=== PATIENT | male | born 1950 | race Caucasian/White ===

== ENCOUNTER 2023-08-02 14:43 | Inpatient (IN) | payer OTHER, SELFPAY ==
[2023-08-02 10:05] VITALS: BP 181/91
[2023-08-02 10:29] LABS: % Basophils 0.2 % (0-2); % Eosinophils 0.1 % (0-6); % Immature Granulocytes 0.6 % (0-0.5); % Lymphocytes 4.7 % (20.5-51.1); % Monocytes 6.2 % (1.7-9.3); % Neutrophils 88.2 % (42.2-75.2); Absolute Immature Granulocytes 0.1 10^3/uL (0-0.05); Absolute Lymphocytes 0.8 10^3/uL (1.2-3.4); Absolute Neutrophils 14.3 10^3/uL (1.4-6.5); Hematocrit 35.7 % (39.0-52.0); Hemoglobin 11.5 g/dL (13.0-18.0); Mean Corp Hgb Conc. 32.2 g/dL (33.0-37.0); Mean Corpuscular Hgb 28.7 pg (27.0-31.0); Mean Platelet Volume 8.9 fL (7.4-10.4); Nucleated Red Blood Cells % 0 % (-); Platelet Count 343 10^3/uL (130-400); Red Blood Cell Count 4.01 10^6/uL (4.70-6.10); Red Cell Dist. Width 13.6 % (11.5-14.5); White Blood Cell Count 16.3 10^3/uL (4.8-10.8)
--- NOTE | 2023-08-02 10:38 | ED.GENMED ---
History of Present Illness
General
Chief Complaint: Fall
Source: patient and ambulance crew
Time Seen by Provider: 08/02/23 10:25
Travel History
Have you had any contact with someone who has COVID-19?: No
Do you have any symptoms of coronavirus? Fever > 100 degrees, chills, cough, shortness of breath, sore throat, loss of taste or smell, muscle aches, or headache?: No
History of Present Illness
History of Present Illness:
73-year-old male presents to the emergency room for evaluation after being found by police on his floor. Patient evidently fell approximately 48 hours ago. He attempted to sit down on a chair when it slid out from under him. He has significant
pain and ecchymosis in the left shoulder. Patient also has pain lateral left hand and fifth digit. Patient was unable to get himself up off of the floor. Patient was urinating in bottles. He states that because he was becoming extremely thirsty
he resorted to drinking his urine to 'prevent dehydration'.
Past History
Past History
ED Past Medical History: CAD, HTN, Hypercholesterolemia, NIDDM, Psychiatric, Other, Other and Other
ED Past Surgical History: Cardiac (stents) and Orthopedic (LTKR 2016)
Social History
Tobacco: Non-smoker
Alcohol: None
Drug: None
Personal:
Living: with family
Employment: Retired
Family History
Family History: Other (Father with a stroke mother with a stroke)
Phy Exam
Physical Exam
Physical Exam:
General: Awake, Alert, Oriented X3. Somewhat bizarre affect.
Vitals: Tachycardic
Head: Atraumatic
Eyes: Pupils equal, EOMI
Throat: Airway intact, no exudates, markedly dry mucosa
Neck: Trachea midline
Lungs: Clear and equal b/l
Heart: Regular rate, no murmurs
Abd: Soft, Nontender, No pulsatile mass
Neuro: Grossly nonfocal
Skin: Warm, dry, no rash.
Extremities: Significant swelling and ecchymosis left shoulder. Pain with minimal movement of the left humerus. Swelling and pain noted left fifth digit and lateral hand.
Course
Orders/Labs/Results
Orders:
Orders
08/02/23 10:06
CR Humerus - Left Min 2 Views* Urgent
Comment:
Reason For Exam: fall 2 days ago
08/02/23 10:08
Urinalysis Reflex To Culture Urgent
Date Specimen was Collected: 08/02/23
Time Specimen was Collected: 10:08
08/02/23 10:10
Complete Blood Count/With Diff Urgent
Comprehensive Metabolic Panel Urgent
Creatine Phosphokinase Urgent
08/02/23 10:37
0.9% Sodium Chloride 500 ml [Nss] 500 ml IV BOLUS
HYDROmorphone [Dilaudid] 0.5 mg IV NOW STA
08/02/23 10:40
CR Chest - 2 Views Urgent
Comment:
Reason For Exam: pain after a fall
Hand, Left 3 View [CR Hand - Left Min 3 Views] Urgent
Comment:
Reason For Exam: pain after a fall
08/02/23 11:43
Splints/Slings/Crut- Treatment ONCE
Sling to: Left Arm
Location: Left
Type of Splint: Aluminum Finger Splint
08/02/23 13:56
EKG [Electrocardiogram (*1)] Urgent
Reason for Study: PreOp
08/02/23 13:58
ORTHOPEDIC CONSULT Routine
Consulting Provider: Dieudonne Baron
Was physician already notified: Yes
Reason for consult: left humerus/ left 5th phlanx fracture
08/02/23 13:59
Admit/Transfer Patient As Directed
Co-Sign Provider:
Level of Care: Inpatient admission
Assign to:: Telemetry
Physician / Group: leif vogel
Diagnosis: mechan fall L humerus/L5th finger fx, Rhabdo,hyperNa
Reason for Telemetry: Arrhythmia
Date to Stop Telemetry: 08/05/23
Time to Stop Telemetry: 11:00
Reason for Hospitalization: mechan fall L humerus/L5th finger fx, Rhabdo,hyperNa
Expected length of stay greater than two midnights?: Yes
ELOS- Estimated Length of Stay in days: 4
I certify the patient meets the requirements for IP care: Yes
Code Status As Directed
Resuscitation Status: Full Code
08/05/23 11:00
DC Protocol for Telemetry ONCE
Abnormal Lab Results
08/02/23
10:10
WBC 16.3 H 10^3/uL
(4.8-10.8)
RBC 4.01 L 10^6/uL
(4.70-6.10)
Hgb 11.5 L g/dL
(13.0-18.0)
Hct 35.7 L %
(39.0-52.0)
MCHC 32.2 L g/dL
(33.0-37.0)
Abs Immat Gran (auto) 0.1 H 10^3/uL
(0-0.05)
Absolute Neuts (auto) 14.3 H 10^3/uL
(1.4-6.5)
Absolute Lymphs (auto) 0.8 L 10^3/uL
(1.2-3.4)
Absolute Monos (auto) 1.0 H 10^3/uL
(0.1-0.6)
Immature Gran % 0.6 H %
(0-0.5)
Neutrophils % 88.2 H %
(42.2-75.2)
Lymphocytes % 4.7 L %
(20.5-51.1)
Sodium 146 H mmol/L
(135-145)
Chloride 114 H mmol/L
(98-107)
Carbon Dioxide 20 L mmol/L
(22-30)
BUN 52 H mg/dl
(9-20)
Creatinine 2.2 H mg/dL
(0.7-1.3)
Glucose 145 H mg/dl
(70-99)
AST 92 H U/L
(17-59)
Creatine Kinase 1364 H U/L
(55-170)
08/02/23 10:10
08/02/23 10:10
Vital Signs
Initial and Last Documented VS:
Initial Vital Signs
Temp Pulse Resp Pulse Ox
98.0 F 108 18 99
08/02/23 10:01 08/02/23 10:01 08/02/23 10:01 08/02/23 10:01
Last Documented Vital Signs
Temp Pulse Resp BP Pulse Ox
97.8 F 106 19 131/94 100
08/02/23 14:12 08/02/23 14:00 08/02/23 14:00 08/02/23 14:00 08/02/23 10:45
MDM/Problems Addressed
Differential Diagnosis Includes:
Humerus fracture, shoulder dislocation, clavicle fracture, dehydration, acute renal failure, rhabdomyolysis
MDM/Problems Addressed:
Patient presents after being on the ground for her a couple days unable to get up. Physical exam shows significant dehydration. Labs show abnormal renal function but appears close to his baseline. His CPKs elevated at around 1500. X-rays show
fracture of his humerus. Patient did not strike his head and did not have loss of consciousness. There is no evidence of head trauma. Patient will require hospitalization both for IV hydration and monitoring renal function but also for orthopedic
evaluation and likely surgical management of his left humerus fracture. The left fifth proximal phalanx fracture can be splinted. Left arm placed in a sling for support. I communicated with Dr. Haynes who is on-call for orthopedics.
*Radiology
Radiology exam reviewed: preliminary read by ED provider (Pressure viewed the patient's plain films. Fracture noted left humerus, left fifth proximal phalanx. Chest x-ray I do not see any acute disease.) and radiology read reviewed
*Pulse Oximetry
Patient hypoxic: no
*EKG
Interpreted by ED Provider?: Yes
Interpretation: abnormal
Heart Rate: 106
[place]: left axis deviation
QRS Pattern: right bundle branch block
Ischemia: non-specific ST changes
*Tile Ditcher Interpretation
Rate: tachycardiac
Interpretation: abnormal
Heart Rate: 106
Rhythm: sinus
*Critical Care Note
Total Time (30-74mins, 75-104mins- exclusive of procedures): Not Applicable
ED Attending Note
-
Portions of this chart may have been created with voice recognition software.� Occasional wrong word or��sound alike� substitutions may have occurred due to the inherent limitations of voice recognition software.
Discharge Plan
Departure
Patient Disposition: Admit
Date of Disposition: 08/02/23
Time of Disposition: 11:34
Admit to: Med/Surg
Presentation/result/management discussed w/ accepting MD/DO: Hospitalist
Condition: Fair
Discharge Problem:
Rhabdomyolysis, Fracture of left humerus, Fracture of proximal phalanx of digit of left hand
Prescriptions:
No Action
atorvastatin 80 MG tablet
80 mg PO DAILY
tamsulosin 0.4 MG capsule
0.4 mg PO QPM
cyanocobalamin (vitamin B-12) 1,000 MCG tablet
1,000 mcg PO DAILY
chlorthalidone 25 MG tablet
25 mg PO DAILY
sodium bicarbonate 650 MG tablet
650 mg PO DAILY
loratadine 10 MG tablet
10 mg PO DAILY
aripiprazole 5 MG tablet
2.5 mg PO QPM
ferrous sulfate [Feosol] 325 MG tablet
325 mg PO DAILY Qty: 30 0RF
travoprost 0.004 % Drops
1 drp BOTH EYES QPM
aspirin 81 mg Tablet,Delayed Release (Dr/Ec)
81 mg PO DAILY
acetaminophen [Tylenol Arthritis] 650 mg Tablet Extended Release
1,300 mg PO BIDPRN PRN (Reason: mild pain)
Patient Comments:
08/02/2023, pt. states to take this med. as needed but has been taking it relatively routinely.
carbamazepine 200 mg Tablet Extended Release 12 Hr
800 mg PO DAILY
losartan 100 mg Tablet
100 mg PO DAILY
Eucerin Cream
1 applic TOPICAL DAILY
Simbrinza 1-0.2 % Drops,Suspension
1 drp BOTH EYES BID
turmeric 400 mg Capsule
400 mg PO BID
Referrals:
Ines Carlos MD [Family Provider] -
Interventions
Interventions:
*Risk Screen - Suicide Last Done: 08/02/23 10:05
*General Assessment Last Done: 08/02/23 10:05
*Neglect/Abuse Screening Last Done: 08/02/23 10:05
ED- Fall Risk Assessment Last Done: 08/02/23 14:13
*ED COVID-19 Vaccine History Last Done: 08/02/23 10:05
ED-Musculoskeletal Assessment Last Done: 08/02/23 10:07
ED- Neurological Assessment Last Done: 08/02/23 10:07
ED-Skin Assessment Last Done: 08/02/23 10:07
[2023-08-02 10:40] LABS: ALT (SGPT) 29 U/L (0-50); AST (SGOT) 92 U/L (17-59); Albumin 3.9 g/dl (3.5-5.0); Alkaline Phosphatase 99 U/L (38-126); Blood Urea Nitrogen 52 mg/dl (9-20); Carbon Dioxide 20 mmol/L (22-30); Chloride 114 mmol/L (98-107); Creatine Phosphokinase 1364 U/L (55-170); Glucose 145 mg/dl (70-99); Sodium 146 mmol/L (135-145); Total Bilirubin 0.6 mg/dl (0.2-1.3); Total Protein 6.4 g/dl (6.3-8.2); eGFR 30.66
[2023-08-02] MEDS: NSS 500 IV (10:43)
[2023-08-02] MEDS: DILAUDID 0.5 MG IV (10:43)
[2023-08-02 10:47] LABS: Potassium 4.4 mmol/L (3.5-5.1)
--- NOTE | 2023-08-02 13:16 | HPS.HSE ---
Addendum entered and electronically signed by Michelle Jiang MD 08/02/23 14:32:
pt seen and examined independently--agree with VALVE ASSEMBLER note
Patient fell at 4 AM on Thursday morning and remained on the ground until today--he was drinking his urine to stay hydrated--sustained left humeral fracture, displaced left fifth phalange and patient is being admitted--he and his (admitted in ICU
here) trying to get to [facility]
GENERAL: well developed, well nourished, obese male in no apparent distress--manic, pressured tangential speech
HEENT: NC/AT dry mucous membranes
HEART: regular rate and rhythm, +S1, +S2
LUNGS : clear to auscultation bilaterally
ABDOM: soft, nontender, nondistended, + bowel sounds
EXT: no cyanosis, clubbing, or edema--left arm in sling with bruising about the shoulder--left 5th finger in splint
NEUROLOGIC: grossly intact
PSYCH: bipolar, manic with pressured speech--tangential
Mechanical fall with left humerus fracture/left fifth proximal phalanx fracture--ADMIT--consult ortho--will likely need surgery for humeral fracture--splint to finger--pain control bowel regimen--will need PT/OT--acceptable for OR tomorrow Thursday
Acute rhabdomyolysis secondary to fall--CPK 1364 will trend--cont IVF--Monitor urine output--Hold chlorthalidone
Acute leukocytosis likely secondary to prolonged fall--CXR neg--check UA C&S--trend
Hypernatremia�mild--likely from dehydration from being on the floor--sodium 149--1/2 NSS
Essential HTN--BP elevated--cont losartan
CKD 3B--Creat 2.2 appears near baseline---Continue sodium bicarbonate 650 mg daily
Type 2 DM --Accu-Cheks with SSI, check HgbA1c-- no meds?
CAD- s/p stent--�follows with [facility] cards--Continue aspirin, hold atorvastatin with rhabdo
PVD with peripheral neuropathy
chronic venous stasis dermatitis--Wears Tubigrip's or JACKIE stockings to bed--Continue Requip
anemia of chronic disease--trend
Bipolar disorder--pt manic and tangential---Continue Tegretol and aripiprazole--consider psych consult if needed
BPH--Continue Flomax
Gout--No reported meds
Glaucoma--Continue Travatan p.m., Simbrinza
Morbid obesity due to excess calorie consumption--Weight loss recommended--affects all aspects of care
DVT prophylaxis-SCDs for this evening
Code STATUS --Full code
Addendum entered and electronically signed by JW Kern 08/02/23 14:04:
hold statin in setting of Rhabdo
Original Note:
Family Physician
-
Family Physician: Ines Carlos
Chief Complaint
-
Fall left upper arm pain, left hand pain
History of Present Illness
73 year male from home where he lives with his who is currently admitted to the ICU at [facility]. He states he was walking in his home Thursday at 4 AM without his walking stick and fell to the floor. He reports lying on the floor not being
able to get up for the past 2 days. He states he was drinking his own urine to keep hydrated. He has ecchymosis to his left shoulder/scapula/left upper humerus and displaced left fifth finger with current splint in place. He has a scabbed
abrasion to his right hand and bilateral chronic venous stasis dermatitis with known history of PVD. He denies headache, LOC, neck pain, chest pain, palpitations, shortness of breath, cough, abdominal pain, nausea, vomiting, diarrhea, urinary
symptoms, recent illness, fever, chills.
He has PMH bipolar disorder, DM2, CAD/ND with stent, glaucoma, gout, CKD stage III, HTN, HLD, morbid obesity, PVD with peripheral neuropathy and chronic venous stasis dermatitis
Medical History
Past Medical History
Past Medical History: Reports Other
Additional Past Medical History:
PMH bipolar disorder
DM2
CAD/ND with stent
CKD stage IIIB
HTN
HLD,
glaucoma
gout
morbid obesity
PVD with peripheral neuropathy
chronic venous stasis dermatitis
Chronic ambulatory dysfunction uses walker at baseline
Past Surgical History: Reports Other
Additional Past Surgical History:
Cath with stent, 2000 left femur fracture repair with jerry, left knee replacement
Social History
Tobacco: Non-smoker
Alcohol: None
Drug: None
Personal:
Living: With Family ( Maddison Causey)
Employment: Retired
Family History
Family History: Not pertinent
Allergies / Home Medications
Allergies reflects when Allergies were last updated in [facility].
Home Medications with original date entered in [facility]
Allergy/Medication List:
Allergies
Allergy/AdvReac Type Severity Reaction Status Date / Time
soy Allergy face Verified 08/02/23 10:02
swelling
and
wheezing
NSAIDS (Non-Steroidal AdvReac stage 3 Verified 08/02/23 10:02
Anti-Inflamma kidney
disease
chocolate syrup Allergy Pharmacy Uncoded 08/02/23 10:02
to Review
hay fever Allergy sneezing,runny Uncoded 08/02/23 10:02
nose,itchy
eyes
Home Medications
atorvastatin 80 mg tablet 80 mg PO DAILY High cholesterol 02/09/15
tamsulosin 0.4 mg capsule 0.4 mg PO QPM Urinary issue 02/09/15
aripiprazole 5 mg tablet 2.5 mg PO QPM Mental Health/Anxiety 03/21/20
chlorthalidone 25 mg tablet 25 mg PO DAILY Blood pressure 03/21/20
cyanocobalamin (vitamin B-12) 1,000 mcg tablet 1,000 mcg PO DAILY Supplement 03/21/20
loratadine 10 mg tablet 10 mg PO DAILY 03/21/20
sodium bicarbonate 650 mg tablet 650 mg PO DAILY Hx metabolic acidosis 03/21/20
ferrous sulfate 325 mg (65 mg iron) tablet (Feosol) 325 mg PO DAILY #30 tabs 03/25/20
acetaminophen 650 mg tablet,extended release 1,300 mg PO BIDPRN PRN mild pain 08/02/23
aspirin 81 mg tablet,delayed release 81 mg PO DAILY 08/02/23
brinzolamide 1 %-brimonidine 0.2 % eye drops,suspension (Simbrinza) 1 drp BOTH EYES BID 08/02/23
carbamazepine 200 mg tablet,extended release,12 hr 800 mg PO DAILY 08/02/23
losartan 100 mg tablet 100 mg PO DAILY 08/02/23
travoprost 0.004 % eye drops 1 drp BOTH EYES QPM 08/02/23
turmeric 400 mg capsule 400 mg PO BID 08/02/23
white petrolatum-mineral oil topical cream 1 applic topical DAILY apply to B/L feet and legs 08/02/23
Review of Systems
-
History Source: Patient
A 12 point ROS was completed and negative except as noted: Yes
Constitutional: Reports Fatigue; Denies Fever or Chills
EENT: Denies Sore Throat or Runny Nose
Respiratory: Denies Cough or Trouble Breathing
Cardiac: Denies Chest Pain, Palpitations or Syncope
Abdomen/GI: Denies Abdominal Pain, Nausea, Vomiting, Diarrhea, Constipated, Bloody Stools, Black Stools or Anorexia
: Denies Dysuria, Frequency, Flank Pain, Incontinence, Difficulty Voiding or Urgency
Musculoskeletal: Reports Joint Pain (Left upper humerus, left fifth finger) and Edema (Trace bilateral lower legs with chronic venous stasis dermatitis)
Skin: Denies Itching or Rash
Neurological: Denies Dizzy, Headache or Weakness
Endocrine: Reports No Symptoms
Hematologic/Lymphatic: Reports No Symptoms
Psych: Reports Calm
Physical Exam
Vital Signs
Vital Signs
Temp Pulse Resp BP Pulse Ox
98.0 F 109 27 181/91 100
08/02/23 10:01 08/02/23 10:45 08/02/23 10:45 08/02/23 10:05 08/02/23 10:45
Physical Exam
General: Comfortable, Conversant and Morbidly Obese; No Fever or Chills
HEENT: NormoCephalic, Anicteric, Moist mucous membranes, Atraumatic, PERRLA, [place] Conjunctivae, No Ptosis, Neck Nontender and Other (Dry oral mucosa)
Respiratory: Clear; No Wheezes, Rales or Rhonchi
Cardiac: S1/S2, Regular Rhythm and Peripheral Edema (Trace bilateral with chronic venous stasis dermatitis); No Murmur, Rub or Gallop
Breast: Deferred by me
GI: Soft, Non Tender, Non Distended, Normal Bowel Sounds and No Hepatosplenomegaly
Rectal: Deferred by Provider
Genito-urinary: Deferred by me
Musculoskeletal: No Clubbing, No Cyanosis, Edema, Left Lower Extremity (Trace bilateral with chronic venous stasis dermatitis) and Edema, Right Lower Extremity (Trace bilateral with chronic venous stasis dermatitis); No Edema, Left Upper Extremity
or Edema, Right Upper Extremity
Skin: Warm, Dry and Other (Scabbed abrasion right dorsal hand, ecchymosis left shoulder/scapula/left upper extremity); No Rash
Neuro: AO x 3 and No Sensory Deficits; No Slurred Speech, Facial Droop, Tremors or Sedated
Psych: Calm
Laboratory Results
-
08/02/23 10:10
08/02/23 10:10
Laboratory Results
Total Bilirubin 0.6 mg/dl (0.2-1.3) 08/02/23 10:10
AST 92 U/L (17-59) H 08/02/23 10:10
ALT 29 U/L (0-50) 08/02/23 10:10
Alkaline Phosphatase 99 U/L (38-126) 08/02/23 10:10
Data Reviewed
-
Diagnostic Radiology: Report Reviewed by me
Lab Data: Labs Reviewed by me
Impression/Plan
-
Impression/plan:
Admit to telemetry
#Mechanical fall with left humerus fracture/left fifth proximal phalanx fracture
-Consult Ortho Dr. Baron aware
-Sling to left humerus
-splint to finger
-Ice, pain control, bowel regimen
-PT/OT/case management eval
-Check preop EKG
Left humerus x-ray: Comminuted and distracted fracture of the proximal third of the left humerus
Left hand x-ray intra-articular fracture at the base of the fifth proximal phalanx at the fifth metacarpal phalangeal joint
CXR: Limited study no acute airspace disease
#Acute rhabdomyolysis secondary to fall
CPK 1364 will trend
-IV 1/2 NSS
-Monitor urine output
-Hold chlorthalidone
#Acute leukocytosis likely secondary to prolonged fall
WBC 16.3 will follow CBC
-Check UA HOTEL HOUSEMAN, CXR negative
#Hypernatremia�mild
NA 149
#HTN�benign
181
-Continue losartan
#CKD 3B
Creat 2.2 appears near baseline
-Continue sodium bicarbonate 650 mg daily
#DM 2
-Accu-Cheks with SSI, check HgbA1c
#CAD
- s/p stent
follows with DCa cards
-Continue aspirin, atorvastatin
#PVD with peripheral neuropathy
# chronic venous stasis dermatitis
-Wears Tubigrip's or JACKIE stockings to bed
-Continue Requip
#Normocytic anemia
Hgb 11.5, MCV 89
#Bipolar disorder
-Continue Tegretol
#BPH
-Continue Flomax
#Gout
-No reported meds
#Glaucoma
-Continue Travatan p.m., Simbrinza
Morbid obesity due to excess calorie consumption
-Weight loss recommended
DVT prophylaxis
SCDs for this evening
Full code
[2023-08-02 13:49] VITALS: BP 139/78
[2023-08-02 14:00] VITALS: BP 131/94
[2023-08-02 15:00] VITALS: BP 134/55
[2023-08-02 15:16] LABS: Urine Albumin 2+ (Neg - Trace); Urine Bilirubin Negative (Negative); Urine Character Clear (Clear); Urine Color Yellow; Urine Glucose Trace (Negative); Urine Ketone 1+ (Negative); Urine Leukocyte Negative (Negative); Urine Nitrite Negative (Negative); Urine Occult Blood 3+ (Negative); Urine Urobilinogen Negative (Neg - 1+)
[2023-08-02 16:00] VITALS: BP 181/86
--- NOTE | 2023-08-02 16:08 | PTCARENOTE ---
Pt arrived to [address] [place] [address] from the ED after a fall at home, admitted with L humerus fx, L 5th finger fx, rhadbo, and hypernatremia. Pt L arm is in sling, L shoulder, L upper arm and L upper back with ecchymosis. Pt states he has 7/10 pain in his L arm.
Pt manic, has tangential speech. Pt oriented to call barahona and room, bed locked and in lowest position, call barahona within reach.
[2023-08-02] MEDS: 0.45%NACL 1000 IV (16:25)
[2023-08-02] MEDS: TYLENOL 650 MG PO (17:36)
[2023-08-02] MEDS: FLOMAX 0.400000000000000022 MG PO (17:36)
[2023-08-02] MEDS: ABILIFY 2.5 MG PO (17:36)
[2023-08-02] MEDS: TRAVATAN Z 1 DROP BOTH EYES (17:48)
[2023-08-02 19:31] VITALS: BP 101/72
[2023-08-02] MEDS: SENOKOT 8.59999999999999964 MG PO (20:04)
[2023-08-02] MEDS: ROXICODONE 5 MG PO (20:12)
[2023-08-02] MEDS: SIMBRINZA 1%-0.2% OPHTH SUSP 1 DROP BOTH EYES (20:42)
[2023-08-03 00:05] VITALS: BP 121/62
[2023-08-03] MEDS: 0.45%NACL 1000 IV (01:44)
[2023-08-03 03:00] VITALS: BP 136/68
[2023-08-03] MEDS: ROXICODONE 5 MG PO ×3 (05:51→22:18)
[2023-08-03 06:20] LABS: % Basophils 0.3 % (0-2); % Eosinophils 2.2 % (0-6); % Immature Granulocytes 0.4 % (0-0.5); % Lymphocytes 18.1 % (20.5-51.1); % Monocytes 8.4 % (1.7-9.3); % Neutrophils 70.6 % (42.2-75.2); Absolute Eosinophils 0.2 10^3/uL (0-0.7); Absolute Lymphocytes 1.7 10^3/uL (1.2-3.4); Absolute Monocytes 0.8 10^3/uL (0.1-0.6); Absolute Neutrophils 6.5 10^3/uL (1.4-6.5); Hematocrit 28.2 % (39.0-52.0); Hemoglobin 9.5 g/dL (13.0-18.0); Mean Corp Hgb Conc. 33.7 g/dL (33.0-37.0); Mean Corpuscular Hgb 29.4 pg (27.0-31.0); Mean Corpuscular Volume 87.3 fL (80.0-94.0); Mean Platelet Volume 9.2 fL (7.4-10.4); Nucleated Red Blood Cells % 0 % (-); Platelet Count 288 10^3/uL (130-400); Red Blood Cell Count 3.23 10^6/uL (4.70-6.10); Red Cell Dist. Width 13.6 % (11.5-14.5); White Blood Cell Count 9.2 10^3/uL (4.8-10.8)
[2023-08-03 07:04] VITALS: BP 127/60
[2023-08-03 07:29] LABS: ALT (SGPT) 22 U/L (0-50); AST (SGOT) 59 U/L (17-59); Albumin 2.9 g/dl (3.5-5.0); Alkaline Phosphatase 77 U/L (38-126); Blood Urea Nitrogen 65 mg/dl (9-20); Calcium 8.6 mg/dl (8.4-10.2); Carbon Dioxide 19 mmol/L (22-30); Chloride 104 mmol/L (98-107); Glucose 136 mg/dl (70-99); Potassium 3.9 mmol/L (3.5-5.1); Sodium 134 mmol/L (135-145); Total Bilirubin 0.5 mg/dl (0.2-1.3); Total Protein 5.3 g/dl (6.3-8.2); eGFR 25.09
[2023-08-03 08:09] LABS: Creatine Phosphokinase 716 U/L (55-170)
[2023-08-03] MEDS: SODIUM BICARBONATE 650 MG PO (08:09)
[2023-08-03] MEDS: COZAAR 100 MG PO (08:09)
[2023-08-03] MEDS: VITAMIN B-12 1000 MCG PO (08:09)
[2023-08-03] MEDS: CLARITIN 10 MG PO (08:09)
[2023-08-03] MEDS: ASPIR LOW (ENTERIC COATED) PO (08:09)
[2023-08-03] MEDS: SENOKOT 8.59999999999999964 MG PO ×2 (08:09→20:01)
[2023-08-03] MEDS: FEOSOL 325 MG PO (08:09)
[2023-08-03] MEDS: SIMBRINZA 1%-0.2% OPHTH SUSP 1 DROP BOTH EYES ×2 (08:10→20:03)
--- NOTE | 2023-08-03 10:04 | CON.ORTHO ---
Consultation
-
Date/Time Consultation Requested: Aug 08
Date/Time Consultation Performed: Aug 08
Requesting Provider: Terrie
Performing Provider: Corwin Daniel
Reason for Consultation: Left humeral shaft and small finger proximal phalanx fractures
Consultation - Orthopedics
History
Dictation#[id number]
Asked to see this 73-year-old white male with PMH of CAD, HTN, Hypercholesterolemia, NIDDM, Psychiatric disorder, who attempted to sit yesterday in a chair when it slid out from under him. He landed on his left side and could not get to his feet.
He was on the ground for what sounds like about 36 hours, resorting to drinking his own urine to 'prevent dehydration.' he was eventually found and transported to via EMS where plain radiographs revealed a comminuted and displaced fracture of
the proximal third of his left humerus and and dorsally angulated fracture of the proximal phalanx of the and displaced fracture of the proximal third of his left humerus in the dorsal angulated fracture of the proximal phalanx of the left small
finger which extends to the MCP joint. he was placed in a sling and provided a splint for the small finger. Unfortunately his is currently admitted to in the ICU. we have been requested in consultation with regards to his left humeral
shaft and proximal phalanx fractures
Allergies / Home Medications
Allergy/AdvReac Type Severity Reaction Status Date / Time
soy Allergy face Verified 08/02/23 10:02
swelling
and
wheezing
NSAIDS (Non-Steroidal AdvReac stage 3 Verified 08/02/23 10:02
Anti-Inflamma kidney
disease
chocolate syrup Allergy Pharmacy Uncoded 08/02/23 10:02
to Review
hay fever Allergy sneezing,runny Uncoded 08/02/23 10:02
nose,itchy
eyes
Medication Instructions Recorded
atorvastatin 80 mg tablet 80 mg PO DAILY High cholesterol 02/09/15
tamsulosin 0.4 mg capsule 0.4 mg PO QPM Urinary issue 02/09/15
aripiprazole 5 mg tablet 2.5 mg PO QPM Mental Health/Anxiety 03/21/20
chlorthalidone 25 mg tablet 25 mg PO DAILY Blood pressure 03/21/20
cyanocobalamin (vitamin B-12) 1,000 mcg PO DAILY Supplement 03/21/20
1,000 mcg tablet
loratadine 10 mg tablet 10 mg PO DAILY 03/21/20
sodium bicarbonate 650 mg tablet 650 mg PO DAILY Hx metabolic 03/21/20
acidosis
ferrous sulfate 325 mg (65 mg 325 mg PO DAILY #30 tabs 03/25/20
iron) tablet (Feosol)
acetaminophen 650 mg 1,300 mg PO BIDPRN PRN mild pain 08/02/23
tablet,extended release
aspirin 81 mg tablet,delayed 81 mg PO DAILY 08/02/23
release
brinzolamide 1 %-brimonidine 0.2 % 1 drp BOTH EYES BID 08/02/23
eye drops,suspension (Simbrinza)
carbamazepine 200 mg 800 mg PO DAILY 08/02/23
tablet,extended release,12 hr
losartan 100 mg tablet 100 mg PO DAILY 08/02/23
travoprost 0.004 % eye drops 1 drp BOTH EYES QPM 08/02/23
turmeric 400 mg capsule 400 mg PO BID 08/02/23
white petrolatum-mineral oil 1 applic topical DAILY apply to 08/02/23
topical cream B/L feet and legs
Vital Signs / Lab Results
Temp Pulse Resp BP Pulse Ox
98.2 F 102 20 127/60 98
08/03/23 07:04 08/03/23 08:09 08/03/23 07:04 08/03/23 08:09 08/03/23 08:00
08/03/23 05:26
08/03/23 05:26
Assessment / Plan
PE: Afeb. AA0 x 3. Left shoulder and hand skin intact. Moderate edema and ecchy about the shoulder. generalized pain to palpation. Deferred range of motion due to known fracture. Elbow nontender to palpation. Is currently in a sling. Tender
over the proximal phalanx at the MCP joint of the small finger. Deferred range of motion due to known fracture. Currently splinted. DNLAILA AGUILAR
Xrays: Comminuted and laterally displaced proximal third Left humeral shaft fracture
Dorsally angulated fracture to the base of the proximal phalanx of the small finger (hand left) which extends to the MCP joint
Impression: MAYDA
Plan: I had an at length bedside discussion with the patient with regards to his left humeral shaft and left hand proximal phalanx fractures. Radiographs were also reviewed by Dr. Too Daniel. I will be requesting dedicated radiographs of the
left shoulder, but it does appear as though surgical correction would be recommended. his left small finger proximal phalanx fracture would also benefit from likely CRPP. Nonoperative and operative management of both fractures were discussed at
length, including the RBAs of each. he defers to our recommendations regarding surgery and after accepting all the proposed risks would like to proceed if he is optimized medically. I discussed the case with Dr. Kushal Ordaz- we appreciate his
efforts. hopefully the patient can be optimized by Thursday where we can proceed with open treatment (plating) of his left humeral shaft and a percutaneous pinning of his small finger proximal phalanx. OR aware. Operative site has been
marked as the left shoulder/hand. surgical and blood consents have been signed. Patient will remain in his sling and splint. We did briefly discuss the postop and rehab course- SNF would likely be beneficial. we will appreciate case
management's efforts with disposition. patient NPO pMN tonight. ABX and irrigation products aviation manager. T&S has been requested. Dr. Daniel will likely see the patient a bit later today to answer any additional questions. will continue to follow along
[2023-08-03 11:10] VITALS: BP 153/71
--- NOTE | 2023-08-03 13:51 | W.PN.HOSP.TC ---
Today's Communication/Plan
-
continue IVF
for OR tomorrow
Assessment / Plan
Assessment / Plan
1. Left humerus fracture
Left fifth digit fracture
Mechanical fall
-Humerus x-ray reviewed. Shoulder x-ray ordered per Ortho request
-Also discussed and patient to be taken to the OR tomorrow
-Pain control with oxycodone, continue
2. Acute rhabdomyolysis secondary to fall
-CPK 1364 at admission, trending down
-Further IVF discontinued
3. Acute hypernatremia - resolved
-Patient admission sodium of 146, corrected with half NS
-discontinue further abx
4. CKD IIIB
-cr elevated to 2.6
-monitor for renal bladder scan
-avoid nephrotoxic meds
Essential HTN
NIDDM
CAD s/p stent
PAD
Chronic venous stasis dermatitis
Anemia of chronic dzs
Bipolar discorder
BPH
Gout
Glaucoma
DVT PPx - scd
Full code
Anticipated Discharge: 24 - 48 hours
Subjective/Interval History
-
Date of Service: August 03, 2023
no complains of pain issues overnight
no other issues
Objective Data
-
Labs:
Laboratory Results
08/03/23
05:26
WBC 9.2
Hgb 9.5 L
Hct 28.2 L
Plt Count 288
Sodium 134 L D
Potassium 3.9
Chloride 104
Carbon Dioxide 19 L
BUN 65 H
Creatinine 2.6 H
Glucose 136 H
Calcium 8.6
Total Bilirubin 0.5
AST 59
ALT 22
Alkaline Phosphatase 77
Vital Signs:
Vital Signs
Temp Pulse Resp BP Pulse Ox
98.6 F 95 19 153/71 95
08/03/23 11:10 08/03/23 11:10 08/03/23 11:10 08/03/23 11:10 08/03/23 11:10
I&O
08/02/23 08/03/23 08/04/23
06:59 06:59 06:59
Intake Total 4020 / 4020
Output Total 300 / 300
Balance 3720 / 3720
Review of Systems
-
Respiratory: Reports No Symptoms
Cardiac: Reports No Symptoms
Abdomen/GI: Reports No Symptoms
Physical Exam
-
General: No Apparent Distress and Comfortable
HEENT: Negative Oxygen
Respiratory: Clear to Auscultation
Cardiac: Regular Rhythm and S1/S2; Negative Murmur or Rub
GI: Soft, Nontender and Nondistended
Musculoskeletal: No Edema
Neuro: Awake, Alert, Oriented, No Motor Deficits and Nonfocal/Grossly Intact
Psych: Calm
--- NOTE | 2023-08-03 14:36 | CM ---
Addendum entered by Molina Chen 08/03/23 14:54:
If recommended for SNF, [facility]'s preference [facility].
Original Note:
Initial assessment completed with patient who lives with his in a 1st floor apartment with no stairs to enter, He uses a SPC for ambulation, he is independent and drives, has a rollator, RW and wheelchair in the home. No services in the home.
Does have a psych history of bipolar, mixed manic with depression. He has had 2 psych hospitalizations for tip in 1968 and 1969. He [place] [facility] and sees a [place] psychiatrist every 2 months for eval and medication assessment. Psychiatrist isw
Naa. Patient's support system consists of his , 2 brothers that are out of the area and many friends. Patient cares for his who is currently in ICU. Pharmacy is [facility] at [facility]. PCP is
Dr. Ines Boston at [facility].
[2023-08-03 15:48] VITALS: BP 137/67
[2023-08-03] MEDS: ABILIFY 2.5 MG PO (17:35)
[2023-08-03] MEDS: FLOMAX 0.400000000000000022 MG PO (17:36)
[2023-08-03] MEDS: TRAVATAN Z 1 DROP BOTH EYES (17:36)
[2023-08-03] MEDS: PROCARDIA XL (EXTENDED RELEASE) 30 MG PO (20:02)
[2023-08-03] MEDS: TEGRETOL XR (EXTENDED RELEASE) 800 MG PO (20:02)
[2023-08-03 23:44] VITALS: BP 94/47
[2023-08-04] VITALS (12 sets, daily range): BP systolic 116–150; BP diastolic 63–79; PULSE 90–95; O2SAT 95–97
[2023-08-04] MEDS: TYLENOL 650 MG PO ×2 (02:50→18:02)
[2023-08-04 06:04] LABS: Glucose - Point of Care 138 mg/dl (70-99)
[2023-08-04 06:48] LABS: % Basophils 0.4 % (0-2); % Immature Granulocytes 0.3 % (0-0.5); % Lymphocytes 17.4 % (20.5-51.1); % Monocytes 7.9 % (1.7-9.3); Absolute Eosinophils 0.2 10^3/uL (0-0.7); Absolute Lymphocytes 1.3 10^3/uL (1.2-3.4); Absolute Monocytes 0.6 10^3/uL (0.1-0.6); Absolute Neutrophils 5.4 10^3/uL (1.4-6.5); Hematocrit 27.6 % (39.0-52.0); Hemoglobin 9.1 g/dL (13.0-18.0); Mean Corpuscular Hgb 28.8 pg (27.0-31.0); Mean Corpuscular Volume 87.3 fL (80.0-94.0); Mean Platelet Volume 9.2 fL (7.4-10.4); Nucleated Red Blood Cells % 0 % (-); Platelet Count 263 10^3/uL (130-400); Red Blood Cell Count 3.16 10^6/uL (4.70-6.10); Red Cell Dist. Width 13.5 % (11.5-14.5); White Blood Cell Count 7.6 10^3/uL (4.8-10.8)
[2023-08-04 07:05] LABS: ALT (SGPT) 24 U/L (0-50); AST (SGOT) 50 U/L (17-59); Albumin 2.9 g/dl (3.5-5.0); Alkaline Phosphatase 78 U/L (38-126); Blood Urea Nitrogen 67 mg/dl (9-20); Calcium 8.2 mg/dl (8.4-10.2); Carbon Dioxide 19 mmol/L (22-30); Chloride 108 mmol/L (98-107); Creatine Phosphokinase 358 U/L (55-170); Glucose 115 mg/dl (70-99); Sodium 135 mmol/L (135-145); Total Bilirubin 0.4 mg/dl (0.2-1.3); Total Protein 5.2 g/dl (6.3-8.2); eGFR 22.96
[2023-08-04] MEDS: PROCARDIA XL (EXTENDED RELEASE) PO (09:51)
[2023-08-04] MEDS: SENOKOT PO (09:51)
[2023-08-04] MEDS: ASPIR LOW (ENTERIC COATED) PO (09:51)
--- NOTE | 2023-08-04 11:27 | PTCARENOTE ---
Patient off unit at this time for surgery.
--- NOTE | 2023-08-04 11:40 | PN.CDI ---
CDI
- -
CDI:
Physician Documentation Request
Admit Date: 08/02/23 14:43
Dear Doctor Apolinar,
Please review the following and provide your response in the progress notes.
Clinical Indicators:
H+P, 08/02
#Acute rhabdomyolysis secondary to fall--CPK 1364 will trend--cont IVF--Monitor urine output-
Please clarify in the progress notes the type of rhabdomyolysis:
Traumatic rhabdomyolysis
Non Traumatic rhabdomyolysis
Other
Use of terms such as suspected, likely, concern for, or probable (associated with a specific diagnosis that is being evaluated, monitored, or treated as if it exists) are acceptable and can be coded in the inpatient setting, when documented at the
time of discharge.
Thank you,
Michelle Gusman RN BSN CCDS
CDI Specialist
please contact via tiger text
Please use your independent medical judgment in providing your response.
--- NOTE | 2023-08-04 11:45 | PN.CDI ---
CDI
- -
CDI:
Physician Documentation Request
Admit Date: 08/02/23 14:43
Dear Doctor Orlin,
Please review the following and provide your response in the progress notes.
Clinical Indicators:
H+P, 08/02
#Acute rhabdomyolysis secondary to fall--CPK 1364 will trend--cont IVF--Monitor urine output-
Please clarify in the progress notes the type of rhabdomyolysis:
Traumatic rhabdomyolysis
Non Traumatic rhabdomyolysis
Other
Use of terms such as suspected, likely, concern for, or probable (associated with a specific diagnosis that is being evaluated, monitored, or treated as if it exists) are acceptable and can be coded in the inpatient setting, when documented at the
time of discharge.
Thank you,
Michelle Gusman RN BSN CCDS
CDI Specialist
please contact via tiger text
Please use your independent medical judgment in providing your response.
[2023-08-04] MEDS: ANCEF 10 IV (11:50)
--- NOTE | 2023-08-04 12:29 | W.PN.HOSP.TC ---
Today's Communication/Plan
-
increase bicarb dose
pt/ot ordered
for eventual placement
Assessment / Plan
Assessment / Plan
1. Left humerus fracture
Left fifth digit fracture
Mechanical fall
-Humerus x-ray reviewed. Shoulder x-ray ordered per Ortho request
-s/p surgical fixation today.
-Pain control with oxycodone, continue
2. Acute traumatic rhabdomyolysis secondary to fall
-CPK 1364 at admission, trending down
-Further IVF discontinued
3. Acute hypernatremia - resolved
-Patient admission sodium of 146, corrected with half NS
-discontinue further abx
4. CKD IIIB
-cr elevated to 2.6
-monitor for renal bladder scan
-avoid nephrotoxic meds
5. Metabolic acidosis
-maintain on sodium bicarb at home, frequency increased to TID
Essential HTN
NIDDM
CAD s/p stent
PAD
Chronic venous stasis dermatitis
Anemia of chronic dzs
Bipolar disorder
BPH
Gout
Glaucoma
DVT PPx - scd
Full code
Anticipated Discharge: 24 - 48 hours
Subjective/Interval History
-
Date of Service: August 04, 2023
Objective Data
-
Labs:
Laboratory Results
08/04/23
05:32
WBC 7.6
Hgb 9.1 L
Hct 27.6 L
Plt Count 263
Sodium 135
Potassium 4.0
Chloride 108 H
Carbon Dioxide 19 L
BUN 67 H
Creatinine 2.8 H
Glucose 115 H
Calcium 8.2 L
Total Bilirubin 0.4
AST 50
ALT 24
Alkaline Phosphatase 78
Vital Signs:
Vital Signs
Temp Pulse Resp BP Pulse Ox
97.5 F 86 16 141/69 99
08/04/23 07:14 08/04/23 07:14 08/04/23 07:14 08/04/23 07:14 08/04/23 07:14
I&O
08/03/23 08/04/23 08/05/23
06:59 06:59 06:59
Intake Total 4020 / 4020 1200 / 1200
Output Total 300 / 300 2350 / 2350
Balance 3720 / 3720 -1150 / -1150
--- NOTE | 2023-08-04 12:36 | CM ---
Patient scheduled for OR for repair of left humeral shaft and left proximal phalanx fractures. Anticipate will need SNF for skilled services and rehab. Patient's is currently at [facility] and patient would like to discharge there. This CM
spoke with Fallon in admissions at [facility] ([phone]) and referral will be sent.
[2023-08-04 13:44] LABS: Glucose - Point of Care 163 mg/dl (70-99)
--- NOTE | 2023-08-04 14:24 | PTCARENOTE ---
Dr Bronson aware of bedside glucose of 163. No treatment at present
[2023-08-04] MEDS: CLARITIN 10 MG PO (15:08)
[2023-08-04] MEDS: SODIUM BICARBONATE 650 MG PO ×2 (15:08→20:20)
[2023-08-04] MEDS: VITAMIN B-12 1000 MCG PO (15:08)
[2023-08-04] MEDS: FEOSOL 325 MG PO (15:08)
[2023-08-04] MEDS: SIMBRINZA 1%-0.2% OPHTH SUSP 1 DROP BOTH EYES ×2 (15:09→20:24)
--- NOTE | 2023-08-04 15:22 | PTCARENOTE ---
Received from PACU, VSS. AOx3, tangential conversation. Denies pain at this time. Aquacell to L shoulder clean, intact. L 5th finger +cap refill, +sensation, +radial pulse. Ac wrap to hand maintained. Updated patient on plan of care.
[2023-08-04] MEDS: ABILIFY 2.5 MG PO (18:02)
[2023-08-04] MEDS: FLOMAX 0.400000000000000022 MG PO (18:02)
[2023-08-04] MEDS: TRAVATAN Z 1 DROP BOTH EYES (18:03)
[2023-08-04] MEDS: SENOKOT 8.59999999999999964 MG PO (20:20)
[2023-08-04] MEDS: PROCARDIA XL (EXTENDED RELEASE) 30 MG PO (20:21)
[2023-08-04] MEDS: ROXICODONE 5 MG PO (20:21)
[2023-08-04] MEDS: TEGRETOL XR (EXTENDED RELEASE) 800 MG PO (20:36)
[2023-08-05] MEDS: TYLENOL 650 MG PO ×2 (04:31→23:59)
[2023-08-05 05:56] LABS: % Basophils 0.3 % (0-2); % Eosinophils 1.6 % (0-6); % Immature Granulocytes 0.7 % (0-0.5); % Lymphocytes 11.5 % (20.5-51.1); % Monocytes 7.6 % (1.7-9.3); % Neutrophils 78.3 % (42.2-75.2); Absolute Eosinophils 0.1 10^3/uL (0-0.7); Absolute Immature Granulocytes 0.1 10^3/uL (0-0.05); Absolute Monocytes 0.7 10^3/uL (0.1-0.6); Hemoglobin 9.5 g/dL (13.0-18.0); Mean Corp Hgb Conc. 32.8 g/dL (33.0-37.0); Mean Corpuscular Hgb 29.1 pg (27.0-31.0); Mean Platelet Volume 9.1 fL (7.4-10.4); Nucleated Red Blood Cells % 0 % (-); Platelet Count 305 10^3/uL (130-400); Red Blood Cell Count 3.26 10^6/uL (4.70-6.10); Red Cell Dist. Width 13.3 % (11.5-14.5); White Blood Cell Count 8.9 10^3/uL (4.8-10.8)
[2023-08-05 06:25] LABS: ALT (SGPT) 23 U/L (0-50); AST (SGOT) 49 U/L (17-59); Albumin 3.2 g/dl (3.5-5.0); Alkaline Phosphatase 88 U/L (38-126); Blood Urea Nitrogen 72 mg/dl (9-20); Calcium 8.2 mg/dl (8.4-10.2); Carbon Dioxide 20 mmol/L (22-30); Chloride 108 mmol/L (98-107); Glucose 158 mg/dl (70-99); Potassium 4.6 mmol/L (3.5-5.1); Sodium 137 mmol/L (135-145); Total Bilirubin 0.4 mg/dl (0.2-1.3); Total Protein 5.6 g/dl (6.3-8.2); eGFR 22.96
--- NOTE | 2023-08-05 07:50 | W.PN.ORTHO ---
Today's Communication / Plan
-
POD1 ORIF left humerus fracture and CRPP left small finger proximal phalanx fracture under the direction of Dr. Daniel
--Continue with immobilization in sling and short arm splint. Non-weight bearing to left upper extremity. Appreciate the assistance of PT/OT.
--DVT ppx per primary.
--Continue pain management per primary. Ice/elevation for pain and edema control.
--Hgb 9.5 this AM, continue to monitor.
--Aquacel dressing and short arm splint to remain in place until 2 weeks post-op. Follow up outpatient at 2 weeks post-op for staple removal, cast application and repeat imaging.
--Case management consult for discharge planning.
--Orthopedics will continue to follow along. Please reach out with any additional questions or concerns.
Assessment
.
Distal Motor Intact: Yes
Dressing:
Clean, dry and intact.
Plan
.
Surgery / Date: ORIF L humerus, CRPP left small finger prox phalan
DVT Prophylaxis: Other (Per primary)
Activity:
Out of bed.
PT/OT
Subjective
.
.:
Mr. Schwarz is POD1 following his ORIF left proximal/diaphyseal humerus fracture and left small finger proximal phalanx CRPP performed by Dr. Daniel. He is resting comfortably in bed this morning, and reports he is doing well overall. He reports his
symptoms are well controlled with his current pain medications. Sling in place to left upper extremity and short arm sling in place to left hand/wrist.
Vital Signs and Labs
.
Vital Signs and Labs:
Lab Results
08/05/23 04:58
08/05/23 04:58
Temp Pulse Resp BP Pulse Ox
98.7 F 104 20 128/63 92
08/04/23 22:50 08/04/23 22:50 08/04/23 22:50 08/04/23 22:50 08/04/23 22:50
Physical Exam
-
Directed exam of the left upper extremity reveals Aquacel dressing clean, dry and intact over anterior shoulder. Short arm splint in place to left hand/wrist. Expected post-operative edema and ecchymosis throughout the left upper extremity.
Tenderness to palpation generally throughout the left upper extremity. Patient able to make composite fist and fully extend fingers. Sensation intact to light touch distally. Capillary refill <2 seconds.
[2023-08-05 08:08] VITALS: BP 123/59
[2023-08-05] MEDS: PROCARDIA XL (EXTENDED RELEASE) 30 MG PO ×2 (08:35→19:36)
[2023-08-05] MEDS: SENOKOT PO ×2 (08:35→19:31)
[2023-08-05] MEDS: SODIUM BICARBONATE 650 MG PO ×2 (08:35→19:37)
[2023-08-05] MEDS: ASPIR LOW (ENTERIC COATED) 81 MG PO (08:35)
[2023-08-05] MEDS: VITAMIN B-12 1000 MCG PO (08:36)
[2023-08-05] MEDS: SIMBRINZA 1%-0.2% OPHTH SUSP 1 DROP BOTH EYES ×2 (08:36→19:37)
[2023-08-05] MEDS: CLARITIN 10 MG PO (08:36)
[2023-08-05] MEDS: FEOSOL 325 MG PO (08:36)
--- NOTE | 2023-08-05 08:44 | PN.CDI ---
CDI
- -
CDI:
Physician Documentation Request
Admit Date: 08/02/23 14:43
Dear Doctor Orlin ,
Please review the following and provide your response in the progress notes.
Clinical Indicators:
PN, 08/04
#Acute traumatic rhabdomyolysis secondary to fall
#...-CPK 1364 at admission, trending down
#CKD IIIB
#...-cr elevated to 2.6
Laboratory Tests
08/02/23 08/02/23 08/03/23
10:10 10:10 05:26
Creatinine 2.2 H
eGFR 30.66 25.09
08/03/23 08/04/23 08/04/23
05:26 05:32 05:32
Creatinine 2.6 H 2.8 H
eGFR 22.96
08/05/23 08/05/23
04:58 04:58
Creatinine 2.8 H
eGFR 22.96
Please clarify which of the following accurately represents the patient's renal status:
Acute renal failure due to rhabdomyolysis
Acute renal failure (with type(if known), if appropriate on CKD IIIB - please provide stage - see criteria)
CKD IIIB
Other
Criteria for CAROL*
1 Increase in serum creatinine by > or = to 0.3 mg/dL (> or = to 26.5 micromol/L) within 48 hours, OR
2 Increase in serum creatinine to > or = to 1.5 times baseline, which is known or presumed to have occurred within 7 days, OR
3 Urine volume < 0.5 nL/kg/hour for six hours
Stages of Chronic Kidney Disease*
Level Description GFR
G1 Normal or High >90
G2 Mildly decreased 60-89
G3a Mildly to moderately decreased 45-59
G3b Moderately to severely decreased 30-44
G4 Severely decreased 15-29
G5 Kidney failure <15
Use of terms such as suspected, likely, concern for, or probable (associated with a specific diagnosis that is being evaluated, monitored, or treated as if it exists) are acceptable and can be coded in the inpatient setting, when documented at the
time of discharge.
Thank you,
Michelle Gusman RN BSN CCDS
CDI Specialist
please contact via tiger text
Please use your independent medical judgment in providing your response.
*Source: Kidney Disease: Improving Global Outcomes (KDIGO) 2012
--- NOTE | 2023-08-05 08:52 | PN.CDI ---
CDI
- -
CDI:
Physician Documentation Request
Admit Date: 08/02/23 14:43
Dear Doctor Orlin,
Please review the following and provide your response in the progress notes.
Clinical Indicators:
PN, 08/04
#-s/p surgical fixation today.
(EBL: 20 ml)
#Anemia of chronic dzs
Laboratory Tests
08/02/23 08/03/23 08/04/23
10:10 05:26 05:32
Hgb 11.5 L 9.5 L 9.1 L
08/05/23
04:58
Hgb 9.5 L
Based on the above, please clarify, which of the following is the most likely type of anemia evaluated, monitored and/or treated?
Acute blood loss anemia with baseline chronic anemia of chronic disease
Anemia of chronic disease, only
Other
Use of terms such as suspected, likely, concern for, or probable (associated with a specific diagnosis that is being evaluated, monitored, or treated as if it exists) are acceptable and can be coded in the inpatient setting, when documented at the
time of discharge.
Thank you,
Michelle Gusman RN BSN CCDS
CDI Specialist
please contact via tiger text
Please use your independent medical judgment in providing your response.
--- NOTE | 2023-08-05 09:44 | PN.CDI ---
CDI
- -
CDI:
Physician Documentation Request
Admit Date: 08/02/23 14:43
Dear Doctor Orlin,
Please review the following and provide your response in the progress notes.
Clinical Indicators:
ED, 08/02
#Patient evidently fell approximately 48 hours ago.
#He attempted to sit down on a chair when it slid out from under him.
#He has significant pain and ecchymosis in the left shoulder.
#Patient also has pain lateral left hand and fifth digit.
#Rhabdomyolysis, Fracture of left humerus, Fracture of proximal phalanx of digit of left hand
Please clarify the etiology of the left humerus and left finger fracture:
Multifactorial due to low level trauma and age related osteoporosis
Traumatic fractures only
Other
Type Fracture
Age-related With current pathological fx
Drug induced (specify drug) without current pathological fx
Idiopathic
Osteoporosis of disuse
Post traumatic
Use of terms such as suspected, likely, concern for, or probable (associated with a specific diagnosis that is being evaluated, monitored, or treated as if it exists) are acceptable and can be coded in the inpatient setting, when documented at the
time of discharge.
Thank you,
Michelle Gusman RN BSN CCDS
CDI Specialist
please contact via tiger text
Please use your independent medical judgment in providing your response.
[2023-08-05 11:38] VITALS: BP 131/64
[2023-08-05 13:03] VITALS: BP 147/79; PULSE 90; O2SAT 99
--- NOTE | 2023-08-05 14:01 | W.PN.HOSP.TC ---
Addendum entered and electronically signed by Kushal Ordaz MD 08/05/23 15:03:
Adjust diagnsosis
CAROL on CKDIIIB from rhabdomyolysis
Acute blood loss anemia
Left humeru fracture traumatic only.
Original Note:
Today's Communication/Plan
-
pt/ot eval
discharge planning
Assessment / Plan
Assessment / Plan
1. Left humerus fracture
Left fifth digit fracture
Mechanical fall
-Humerus x-ray reviewed. Shoulder x-ray ordered per Ortho request
-s/p surgical fixation
-Pain control with oxycodone, continue
2. Acute traumatic rhabdomyolysis secondary to fall
-CPK 1364 at admission, trended down.
-Further IVF discontinued
3. Acute hypernatremia - resolved
-Patient admission sodium of 146, corrected with half NS
-discontinue further abx
4. CKD IIIB
-cr fluctuating close to baseline
-avoid nephrotoxic meds
-Continue monitoring
5. Metabolic acidosis
-Likely with underlying chronic kidney disease
-maintain on sodium bicarb at home, frequency increased to TID
Essential HTN
NIDDM
CAD s/p stent
PAD
Chronic venous stasis dermatitis
Anemia of chronic dzs
Bipolar disorder
BPH
Gout
Glaucoma
DVT PPx - scd
Full code
Anticipated Discharge: Within 24 hours
Subjective/Interval History
-
Date of Service: August 05, 2023
patient denies of having problems
Objective Data
-
Labs:
Laboratory Results
08/05/23
04:58
WBC 8.9
Hgb 9.5 L
Hct 29.0 L
Plt Count 305
Sodium 137
Potassium 4.6
Chloride 108 H
Carbon Dioxide 20 L
BUN 72 H
Creatinine 2.8 H
Glucose 158 H
Calcium 8.2 L
Total Bilirubin 0.4
AST 49
ALT 23
Alkaline Phosphatase 88
Vital Signs:
Vital Signs
Temp Pulse Resp BP Pulse Ox
98.5 F 96 22 131/64 99
08/05/23 11:38 08/05/23 11:38 08/05/23 11:38 08/05/23 11:38 08/05/23 11:38
I&O
08/04/23 08/05/23 08/06/23
06:59 06:59 06:59
Intake Total 1200 / 1200 0 / 1919
Output Total 2350 / 2350 1974 / 1974
Balance -1150 / -1150 -55 / -55
Review of Systems
-
Respiratory: Reports No Symptoms
Cardiac: Reports No Symptoms
Abdomen/GI: Reports No Symptoms
Physical Exam
-
General: No Apparent Distress and Comfortable
HEENT: Negative Oxygen
Respiratory: Clear to Auscultation
Cardiac: Regular Rhythm and S1/S2; Negative Murmur or Rub
GI: Soft, Nontender and Nondistended
Musculoskeletal: No Edema and Other (Left shoulder ecchymosis)
Neuro: Awake, Alert, Oriented, No Motor Deficits and Nonfocal/Grossly Intact
Psych: Calm
[2023-08-05 15:35] VITALS: BP 141/74
[2023-08-05] MEDS: ROXICODONE 5 MG PO ×2 (15:35→19:36)
--- NOTE | 2023-08-05 15:39 | CM ---
Post-Op Day #1: PT recommendation for SNF for detention and rehab services. Accepted to [facility] when medically cleared for discharge.
[2023-08-05] MEDS: ABILIFY 2.5 MG PO (17:38)
[2023-08-05] MEDS: TRAVATAN Z 1 DROP BOTH EYES (17:39)
[2023-08-05] MEDS: FLOMAX 0.400000000000000022 MG PO (17:39)
[2023-08-05] MEDS: TEGRETOL XR (EXTENDED RELEASE) 800 MG PO (21:25)
[2023-08-05] MEDS: APRESOLINE 10 MG IV (23:53)
[2023-08-06 00:02] VITALS: BP 160/78
[2023-08-06 00:52] VITALS: BP 145/68
[2023-08-06 04:50] VITALS: BP 163/83
[2023-08-06 05:12] LABS: % Basophils 0.5 % (0-2); % Eosinophils 3.2 % (0-6); % Immature Granulocytes 1.1 % (0-0.5); % Lymphocytes 16.2 % (20.5-51.1); % Monocytes 9.3 % (1.7-9.3); % Neutrophils 69.7 % (42.2-75.2); Absolute Eosinophils 0.3 10^3/uL (0-0.7); Absolute Immature Granulocytes 0.1 10^3/uL (0-0.05); Absolute Lymphocytes 1.4 10^3/uL (1.2-3.4); Absolute Monocytes 0.8 10^3/uL (0.1-0.6); Absolute Neutrophils 6.1 10^3/uL (1.4-6.5); Hematocrit 27.1 % (39.0-52.0); Hemoglobin 8.9 g/dL (13.0-18.0); Mean Corp Hgb Conc. 32.8 g/dL (33.0-37.0); Mean Corpuscular Hgb 28.6 pg (27.0-31.0); Mean Corpuscular Volume 87.1 fL (80.0-94.0); Mean Platelet Volume 9.1 fL (7.4-10.4); Nucleated Red Blood Cells % 0 % (-); Platelet Count 287 10^3/uL (130-400); Red Blood Cell Count 3.11 10^6/uL (4.70-6.10); Red Cell Dist. Width 13.7 % (11.5-14.5); White Blood Cell Count 8.7 10^3/uL (4.8-10.8)
[2023-08-06 05:36] LABS: ALT (SGPT) 17 U/L (0-50); AST (SGOT) 42 U/L (17-59); Albumin 2.9 g/dl (3.5-5.0); Alkaline Phosphatase 79 U/L (38-126); Blood Urea Nitrogen 71 mg/dl (9-20); Calcium 8.6 mg/dl (8.4-10.2); Carbon Dioxide 22 mmol/L (22-30); Chloride 108 mmol/L (98-107); Glucose 139 mg/dl (70-99); Potassium 4.6 mmol/L (3.5-5.1); Sodium 141 mmol/L (135-145); Total Bilirubin 0.5 mg/dl (0.2-1.3); Total Protein 5.3 g/dl (6.3-8.2)
[2023-08-06] MEDS: ASPIR LOW (ENTERIC COATED) 81 MG PO (07:34)
[2023-08-06] MEDS: VITAMIN B-12 1000 MCG PO (07:34)
[2023-08-06] MEDS: CLARITIN 10 MG PO (07:34)
[2023-08-06] MEDS: SIMBRINZA 1%-0.2% OPHTH SUSP 1 DROP BOTH EYES (07:35)
[2023-08-06] MEDS: FEOSOL 325 MG PO (07:35)
[2023-08-06] MEDS: SENOKOT 8.59999999999999964 MG PO (07:35)
[2023-08-06] MEDS: SODIUM BICARBONATE 650 MG PO (07:35)
[2023-08-06] MEDS: PROCARDIA XL (EXTENDED RELEASE) 30 MG PO (07:39)
[2023-08-06 07:40] VITALS: BP 150/68
--- NOTE | 2023-08-06 09:04 | W.PN.ORTHO ---
Today's Communication / Plan
-
POD2 ORIF left humerus fracture and CRPP left small finger proximal phalanx fracture under the direction of Dr. Daniel
--Continue with immobilization in sling and short arm splint. Non-weight bearing to left upper extremity. Appreciate the assistance of PT/OT.
--DVT ppx per primary.
--Continue pain management per primary. Ice/elevation for pain and edema control.
--Aquacel dressing and short arm splint to remain in place until 2 weeks post-op. Follow up outpatient at 2 weeks post-op for staple removal, cast application and repeat imaging.
--Case management consult for discharge planning.
--Orthopedics will follow peripherally at this time; will place postop instructions in DC summary/plan
Assessment
.
Distal Motor Intact: Yes
Dressing:
Clean, dry and intact.
Plan
.
Surgery / Date: ORIF L humerus, CRPP left small finger prox phalan
Activity:
Out of bed.
PT/OT
Subjective
.
.:
Patient resting comfortably.
Vital Signs and Labs
.
Vital Signs and Labs:
Lab Results
08/06/23 04:57
08/06/23 04:57
Temp Pulse Resp BP Pulse Ox
98.6 F 99 20 150/68 97
08/06/23 07:40 08/06/23 07:40 08/06/23 07:40 08/06/23 07:40 08/06/23 07:40
[2023-08-06] MEDS: TYLENOL 650 MG PO (10:17)
--- NOTE | 2023-08-06 11:48 | W.PN.HOSP.TC ---
Today's Communication/Plan
-
d/c to snf rehab
Assessment / Plan
Assessment / Plan
1. Left humerus fracture traumatic in nature
Left fifth digit fracture
Mechanical fall
-Humerus x-ray reviewed. Shoulder x-ray ordered per Ortho request
-s/p surgical fixation -patient to follow-up with orthopedics office in 2 weeks
-Pain control with oxycodone, continue
-Left upper extremity to remain in sling and nonweightbearing
2. Acute traumatic rhabdomyolysis secondary to fall - resolved
-CPK 1364 at admission, trended down.
-Further IVF discontinued
3. Acute hypernatremia - resolved
-Patient admission sodium of 146, corrected with half NS
-discontinue further abx
4. CAROL on CKD IIIB
-cr fluctuating close to baseline
-avoid nephrotoxic meds
-Discharge patient to be taken off of chlorthalidone/losartan, transition to Procardia XL for BP control
5. Metabolic acidosis
-Likely with underlying chronic kidney disease
-maintain on sodium bicarb at home, frequency increased to TID
6. Acute blood loss anemia
- from surgical blood loss, no transfusion indicated.
Essential HTN
NIDDM
CAD s/p stent
PAD
Chronic venous stasis dermatitis
Anemia of chronic dzs
Bipolar disorder
BPH
Gout
Glaucoma
DVT PPx - scd
Full code
More than 30 minutes spent in discharge including
Final examination of the patient
Summarizing hospital stay
Instructions for continuing care to all relevant caregivers
Preparation of discharge records, prescriptions, and referral forms
Total time spent (in minutes): 38 mins
Anticipated Discharge: Today
Subjective/Interval History
-
Date of Service: August 06, 2023
Patient feeling warm, having some discomfort in arm
no overnight issues reported
Objective Data
-
Labs:
Laboratory Results
08/06/23
04:57
WBC 8.7
Hgb 8.9 L
Hct 27.1 L
Plt Count 287
Sodium 141
Potassium 4.6
Chloride 108 H
Carbon Dioxide 22
BUN 71 H
Creatinine 2.5 H
Glucose 139 H
Calcium 8.6
Total Bilirubin 0.5
AST 42
ALT 17
Alkaline Phosphatase 79
Vital Signs:
Vital Signs
Temp Pulse Resp BP Pulse Ox
98.6 F 99 20 150/68 97
08/06/23 07:40 08/06/23 07:40 08/06/23 07:40 08/06/23 07:40 08/06/23 07:40
I&O
08/05/23 08/06/23 08/07/23
06:59 06:59 06:59
Intake Total 1919 / 1919 2280 / 2280
Output Total 1974 3150 / 3150
Balance -55 / -55 -870 / -870
Review of Systems
-
Respiratory: Reports No Symptoms
Cardiac: Reports No Symptoms
Abdomen/GI: Reports No Symptoms
Physical Exam
-
General: No Apparent Distress and Comfortable
HEENT: Negative Oxygen
Respiratory: Clear to Auscultation
Cardiac: Regular Rhythm and S1/S2; Negative Murmur or Rub
GI: Soft, Nontender and Nondistended
Musculoskeletal: No Edema and Other (Left shoulder ecchymosis)
Neuro: Awake, Alert, Oriented, No Motor Deficits and Nonfocal/Grossly Intact
Psych: Calm
[2023-08-06] MEDS: ROXICODONE 5 MG PO (13:10)
--- NOTE | 2023-08-06 14:29 | CM ---
Patient has been medically cleared for discharge to [facility] for nursing home and rehab services. Insurance required authorizations for facility and ambulance transport through [facility]. This CM spoke with Ivana and orally reviewed case.
Patient has been approved as level 1 for 7 days from 08/06/23 through to and including 08/12/23. NRD 08/12/23. Auth # for facility is # [id number] and auth # for ambulance is [id number]. Concurrent reviews to be faxed to # [phone].
Transport has been scheduled for 4:00PM.
NURSE TO NURSE REPORT #: [phone] ask for 2nd floor nursing.
FAX # [phone].
[2023-08-06 16:07] VITALS: BP 168/84
--- NOTE | 2023-08-06 16:22 | PTCARENOTE ---
Report called to [facility]. Acute care at bedside to transport patient to facility. IVs removed prior to discharge. Belongings taken with patient.
--- NOTE | 2023-08-06 17:14 | W.DCSUMMARY ---
Discharge Summary
Discharge Data
Date of Admission: 08/02/23
Date of Discharge: 08/06/23
-
Pending Results: No
Hospital Course
Discharging Physician : Dr Kushal Ordaz
Disposition : SNF rehab
Primary care physician : Dr Ines Carlos
Principal Discharge diagnosis :
Mechanical fall causing left humerus fracture
Left fifth digit fracture
Acute traumatic rhabdomyolysis
Acute hyponatremia
Acute kidney injury on chronic kidney disease stage IIIb
Metabolic acidosis
Acute blood loss anemia
Chronic Discharge diagnosis :
Essential hypertension
Cca-uxtrbxh-ldbyivjiz hours mellitus
Coronary disease with history of stent
Peripheral artery disease
Chronic venous stasis dermatitis
Anemia of chronic disease
Bipolar disorder
Benign prostatic hyperplasia
Gout
Hospital Course :
Patient is a 73-year-old male with above-mentioned past medical history came to ER after having a mechanical fall at home. Patient apparently on floor for approximately 48 hours, reported of drinking humidifier water and own urine to stay hydrated.
Patient spouse who unfortunately was hospitalized called [facility] [employer] for welfare check and patient was found down at home. Examination in ER showed showing significant left shoulder bruising and deformity in left fifth finger. X-ray
of both areas showing humerus fracture and fifth finger fracture. Finger fracture was splinted in ER. Patient also had associated rhabdomyolysis and some kidney dysfunction which improved with IV fluid hydration. Patient also had mild hypernatremia
due to volume depletion which corrected with hypotonic IV fluid. Patient was started on IV fluid and orthopedic surgery was consulted. Patient was taken to the OR with surgical fixation of left humeral fracture. Postoperatively patient had mild
blood loss anemia from surgical blood loss although did not require any blood transfusion. Post improvement of metabolic derangements [facility]
Important imaging findings :
None
Procedure findings :
None
Discharge Plan
-
Patient Disposition: Half-Way/SNF
Discharge Diagnosis/Procedures: Left humerus fracture
Diet: Regular
Activity: As tolerated and Other activity
Additional Activity: Continue with immobilization in sling and short arm splint. Non-weight bearing to left upper extremity.
Driving Restrictions: No driving
Wound Care: Keep dressing in place for 2 weeks and Post operative evaluation in orthopedic office in 2 weeks.
Referrals:
Ines Carlos MD [Family Provider] - in one week
Too Daniel MD [Active] - in two weeks (Please call office [phone] to schedule)
Prescriptions:
New
nifedipine 30 mg Tablet Extended Release
60 mg PO BID Qty: 60 0RF
oxycodone 5 mg Tablet
5 mg PO Q8HPRN PRN (Reason: mod sev pain) Qty: 14 0RF
Continued
atorvastatin 80 MG tablet
80 mg PO DAILY
tamsulosin 0.4 MG capsule
0.4 mg PO QPM
cyanocobalamin (vitamin B-12) 1,000 MCG tablet
1,000 mcg PO DAILY
sodium bicarbonate 650 MG tablet
650 mg PO DAILY
loratadine 10 MG tablet
10 mg PO DAILY
aripiprazole 5 MG tablet
2.5 mg PO QPM
ferrous sulfate [Feosol] 325 MG tablet
325 mg PO DAILY Qty: 30 0RF
travoprost 0.004 % Drops
1 drp BOTH EYES QPM
aspirin 81 mg Tablet,Delayed Release (Dr/Ec)
81 mg PO DAILY
acetaminophen 650 mg Tablet Extended Release
1,300 mg PO BIDPRN PRN (Reason: mild pain)
Patient Comments:
08/02/2023, pt. states to take this med. as needed but has been taking it relatively routinely.
carbamazepine 200 mg Tablet Extended Release 12 Hr
800 mg PO DAILY
white petrolatum-mineral oil Cream
1 applic TOPICAL DAILY
Simbrinza 1-0.2 % Drops,Suspension
1 drp BOTH EYES BID
turmeric 400 mg Capsule
400 mg PO BID
Discontinued
chlorthalidone 25 MG tablet
25 mg PO DAILY
losartan 100 mg Tablet
100 mg PO DAILY
Discharge Orders:
Discharge Patient (As Directed); Ordered 08/06/23
Ordered By: Kushal Ordaz
Discharge Date and Time
Discharge Date/Time: 08/06/23 16:24
== END 2023-08-06 16:24 | DRG 493 ==
LOC: 2 SOUTH 14:43
PROVIDERS: Clinical Nurse Specialist Family Health; ADMITTING PHYSICIAN Internal Medicine; ATTENDING PHYSICIAN Hospitalist; CONSULT PHYSICIAN Orthopaedic Surgery; EMERGENCY PHYSICIAN Emergency Medicine; FAMILY PHYSICIAN Internal Medicine; OTHER PHYSICIAN Physician Assistant Surgical
PROC: 0PSV34Z Reposition Left Finger Phalanx with Internal Fixation Device, Percutaneous Approach (ICD-10-PCS; 2023-08-04)
PROC: 0PSD04Z Reposition Left Humeral Head with Internal Fixation Device, Open Approach (ICD-10-PCS; 2023-08-04)
DX: S42.202A Unspecified fracture of upper end of left humerus, initial encounter for closed fracture (principal); D62 Acute posthemorrhagic anemia; M62.82 Rhabdomyolysis; E87.0 Hyperosmolality and hypernatremia; E87.20 Acidosis, unspecified; N17.9 Acute kidney failure, unspecified; F31.9 Bipolar disorder, unspecified; D72.829 Elevated white blood cell count, unspecified; E86.0 Dehydration; N18.32 Chronic kidney disease, stage 3b; E11.22 Type 2 diabetes mellitus with diabetic chronic kidney disease; I87.2 Venous insufficiency (chronic) (peripheral); D63.8 Anemia in other chronic diseases classified elsewhere; N40.0 Benign prostatic hyperplasia without lower urinary tract symptoms; M10.9 Gout, unspecified; H40.9 Unspecified glaucoma; E66.01 Morbid (severe) obesity due to excess calories; S62.617A Displaced fracture of proximal phalanx of left little finger, initial encounter for closed fracture; T79.6XXA Traumatic ischemia of muscle, initial encounter
CPT/HCPCS: 71046; 73030; 73060; 73130; 76000; 80053; 81003; 81015; 82550; 82962; 85025; 86850; 86900; 86901; 93005; 96361; 96374; 97110; 97116; 97163; 97167; 97530; 97535; 99285; C1713

== ENCOUNTER 2023-09-29 05:53 | Inpatient (IN) | payer MEDICARE, SELFPAY ==
[2023-09-28 23:24] VITALS: BP 172/80
[2023-09-29] VITALS (7 sets, daily range): BP systolic 107–164; BP diastolic 58–86; BMI 32.2; BMI 31.3; BMI 29.9
[2023-09-29] MEDS: TYLENOL 1000 MG PO (02:07)
[2023-09-29 02:29] LABS: Urine Albumin Trace (Neg - Trace); Urine Bilirubin Negative (Negative); Urine Character Clear (Clear); Urine Color Yellow; Urine Glucose Negative (Negative); Urine Ketone Negative (Negative); Urine Leukocyte Negative (Negative); Urine Nitrite Negative (Negative); Urine Occult Blood Negative (Negative); Urine Specific Gravity 1.005 (<1.030); Urine Urobilinogen Negative (Neg - 1+)
--- NOTE | 2023-09-29 02:32 | ED.GENMED ---
History of Present Illness
General
Chief Complaint: Wound Check/Suture Removal
Source: patient
Exam Limitations: none
Time Seen by Provider: 09/29/23 01:44
Nursing documentation reviewed up to this point in time: agreed with
Travel History
Have you had any contact with someone who has COVID-19?: No
Do you have any symptoms of coronavirus? Fever > 100 degrees, chills, cough, shortness of breath, sore throat, loss of taste or smell, muscle aches, or headache?: No
History of Present Illness
History of Present Illness:
Patient discharged from rehab facility earlier today, presents to ED requesting evaluation of his left lower legs, which was recently treated with antibiotics. Patient denies fever or chills. Patient is complaining of ongoing leg pain. Denies
nausea or vomiting. Denies trauma.
Past History
Past History
ED Past Medical History: CAD, HTN, Hypercholesterolemia, NIDDM, Psychiatric, Other, Other and Other
ED Past Surgical History: Cardiac (stents) and Orthopedic (LTKR 2016)
Social History
Tobacco: Non-smoker
Alcohol: None
Drug: None
Personal:
Living: with family
Employment: Retired
Family History
Family History: Other (Father with a stroke mother with a stroke)
Review of Systems
Review of Systems
Allergies reviewed?: Yes
All Other Systems: ROS reviewed and negative except as documented in HPI and ROS
Constitutional: Reports no symptoms; Denies fever
EENT: Reports no symptoms
Respiratory: Reports no symptoms
Cardiac: Reports no symptoms
ABD/GI: Reports no symptoms
: Reports no symptoms
Musculoskeletal: Reports other (Leg pain)
Skin: Reports other (Leg wound)
Neurological: Reports no symptoms
Phy Exam
Physical Exam
Physical Exam:
Physical Exam
General: mild painful distress, not acutely ill. afebrile
Head: nc/at. eomi
Neck: supple. no meningeal signs.
Heart: s1/s2 regular rate and rhythm, no murmur. equal radial pulses.
Lungs: no acute respiratory distress. clear bilaterally
Abdomen: normal bowel sounds. not tender.
Neuro: alert and oriented. no focal neurological deficits
Skin: no rash
Psychiatric: well kept. interactive and cooperative
Extremities: b/l chronic appearing stasis with multiple open ulcers, with moderate foul smelling drainage along with erythema.
Course
Orders/Labs/Results
Orders:
Orders
09/29/23 02:04
Acetaminophen [Tylenol] 1,000 mg PO NOW STA
09/29/23 02:05
Acetaminophen [Tylenol] 1,000 mg .ROUTE .STK-MED ONE
09/29/23 02:22
Urinalysis Reflex To Culture Urgent
Date Specimen was Collected: 09/29/23
Time Specimen was Collected: 02:13
Blood Culture Q30M
MARLENE Source: Blood/Venous
Specimen Description:
09/29/23 02:30
Basic Metabolic Panel Urgent
Complete Blood Count/With Diff Urgent
Lactic Acid Q4H
Comment: CANCEL 2nd LACTIC ACID IF 1st LACTIC ACID IS LESS THAN 2
Blood Culture Q30M
MARLENE Source: Blood/Venous
Specimen Description:
09/29/23 02:38
Vancomycin [Vancocin] 2,000 mg 0.9% Sodium Chloride 500 ml [Nss] 500 ml IV NOW
09/29/23 03:26
Wound Culture [Wound/Abscess/Other Culture] Urgent
MARLENE Source: Leg
Specimen Description: Left
Date Specimen was Collected: 09/29/23
Time Specimen was Collected: 03:20
09/29/23 05:41
Admit/Transfer Patient As Directed
Co-Sign Provider:
Level of Care: Inpatient admission
Assign to:: Medical/Surgical
Physician / Group: [email or web address]
Diagnosis: cellulitis legs
Reason for Hospitalization: cellulitis legs
Expected length of stay greater than two midnights?: Yes
ELOS- Estimated Length of Stay in days: 3
I certify the patient meets the requirements for IP care: Yes
09/29/23 05:44
Code Status As Directed
Resuscitation Status: Full Code
09/29/23 05:55
Acetaminophen [Tylenol] 650 mg PO Q4HPRN PRN
Bisacodyl [Dulcolax] 10 mg RECTAL B50MMGT PRN
Dextrose 50%-Water [Dextrose 50% Syringe] 12.5 grams IV F04HSLQ PRN
Docusate W/Senna [Senokot-S] 1 tablet PO BIDPRN PRN
Glucagon [GlucaGen] 1 mg IM PRN PRN
Polyethylene Glycol Powder [Miralax] 17 grams PO DAILYPRN PRN
09/29/23 05:55
Consult Notification Routine
Specialty to Notify: Infectious Disease
Date consulting provider notified: 09/29/23
Time consulting provider notified: 07:37
Notified:: Provider
Comment: traci
INFECTIOUS DISEASE CONSULT Routine
Consulting Provider: Henny Hay
Was physician already notified: No
Reason for consult: Likely LLEx cellultis with infectedd open ulcers chronic venous stasis
WOUND/OSTOMY CONSULT Routine
Reason for Consult: Likely LLEx cellultis with infectedd open ulcers
Activity As Directed
Activity Level: With Assistance
Bedside Glucose Monitoring As Directed
Frequency: AC&HS
Comment: Change to q6h if pt on TPN, tube feeding or not eating
Vital Signs As Directed
Frequency: Per unit guidelines
DX Deep Vein Thrombosis Video Routine
09/29/23 Breakfast
Cholesterol Lowering
At Your Request: Non-Participating
Cholesterol Lowering: Sodium, 2 Gram
CeFAZolin 2 GRAM [Ancef] 2 grams in 10 ml IV Q8H
09/29/23 06:39
Glycohemoglobin (HgbA1c) IN AM
09/29/23 07:30
Insulin Aspart Corrective Low [Novolog Flexpen-Low Resistance] See Protocol SC AC
09/29/23 08:00
Gabapentin [Neurontin] 100 mg PO TID
Heparin 5,000 units SC Q12
Losartan [Cozaar] 25 mg PO DAILY
NIFEdipine EXTENDED RELEASE [Procardia Xl (Extended Release)] 60 mg PO BID
09/29/23 18:00
Non-Formulary Item See Dose Instructions BOTH EYES QPM
Tamsulosin [Flomax] 0.4 mg PO QPM
09/30/23 06:00
Complete Blood Count/No Diff IN AM
Comprehensive Metabolic Panel IN AM
Abnormal Lab Results
09/29/23
02:30
WBC 13.9 H 10^3/uL
(4.8-10.8)
RBC 3.32 L 10^6/uL
(4.70-6.10)
Hgb 9.1 L g/dL
(13.0-18.0)
Hct 28.0 L %
(39.0-52.0)
MCHC 32.5 L g/dL
(33.0-37.0)
Abs Immat Gran (auto) 0.1 H 10^3/uL
(0-0.05)
Absolute Neuts (auto) 10.8 H 10^3/uL
(1.4-6.5)
Absolute Monos (auto) 1.0 H 10^3/uL
(0.1-0.6)
Immature Gran % 0.6 H %
(0-0.5)
Neutrophils % 77.8 H %
(42.2-75.2)
Lymphocytes % 11.7 L %
(20.5-51.1)
Chloride 111 H mmol/L
(98-107)
Carbon Dioxide 19 L mmol/L
(22-30)
BUN 51 H mg/dl
(9-20)
Creatinine 2.7 H mg/dL
(0.7-1.3)
Glucose 117 H mg/dl
(70-99)
09/29/23 02:30
09/29/23 02:30
Vital Signs
Initial and Last Documented VS:
Initial Vital Signs
Temp Pulse Resp BP Pulse Ox
98.1 F 94 24 172/80 98
09/28/23 23:24 09/28/23 23:24 09/28/23 23:24 09/28/23 23:24 09/28/23 23:24
Last Documented Vital Signs
Temp Pulse Resp BP Pulse Ox
98.4 F 83 16 164/86 97
09/29/23 07:50 09/29/23 07:50 09/29/23 07:50 09/29/23 07:50 09/29/23 07:50
MDM/Problems Addressed
MDM/Problems Addressed:
History and exam consistent with likely chronic venous stasis, now with superimposed infection. Patient will be admitted for IV antibiotics.
*Critical Care Note
Total Time (30-74mins, 75-104mins- exclusive of procedures): Not Applicable
ED Attending Note
-
Portions of this chart may have been created with voice recognition software.� Occasional wrong word or��sound alike� substitutions may have occurred due to the inherent limitations of voice recognition software.
Discharge Plan
Departure
Patient Disposition: Admit
Date of Disposition: 09/29/23
Time of Disposition: 04:35
Presentation/result/management discussed w/ accepting MD/DO: Hospitalist
Discharge Problem:
Bilateral lower leg cellulitis
Interventions
Interventions:
*Risk Screen - Suicide Last Done: 09/28/23 23:24
*General Assessment Last Done: 09/29/23 00:44
*Neglect/Abuse Screening Last Done: 09/28/23 23:24
*ED COVID-19 Vaccine History Last Done: 09/29/23 11:59
ED-Skin Assessment Last Done: 09/29/23 00:46
[2023-09-29 02:37] LABS: % Basophils 0.4 % (0-2); % Eosinophils 2.5 % (0-6); % Immature Granulocytes 0.6 % (0-0.5); % Lymphocytes 11.7 % (20.5-51.1); % Neutrophils 77.8 % (42.2-75.2); Absolute Basophils 0.1 10^3/uL (0-0.2); Absolute Eosinophils 0.4 10^3/uL (0-0.7); Absolute Immature Granulocytes 0.1 10^3/uL (0-0.05); Absolute Lymphocytes 1.6 10^3/uL (1.2-3.4); Absolute Neutrophils 10.8 10^3/uL (1.4-6.5); Hemoglobin 9.1 g/dL (13.0-18.0); Mean Corp Hgb Conc. 32.5 g/dL (33.0-37.0); Mean Corpuscular Hgb 27.4 pg (27.0-31.0); Mean Corpuscular Volume 84.3 fL (80.0-94.0); Mean Platelet Volume 8.5 fL (7.4-10.4); Nucleated Red Blood Cells % 0 % (-); Platelet Count 371 10^3/uL (130-400); Red Blood Cell Count 3.32 10^6/uL (4.70-6.10); Red Cell Dist. Width 14.1 % (11.5-14.5); White Blood Cell Count 13.9 10^3/uL (4.8-10.8)
[2023-09-29 03:04] LABS: Blood Urea Nitrogen 51 mg/dl (9-20); Calcium 8.9 mg/dl (8.4-10.2); Carbon Dioxide 19 mmol/L (22-30); Chloride 111 mmol/L (98-107); Estimated Creatinine Clearance 30 ml/min; Glucose 117 mg/dl (70-99); Potassium 4.1 mmol/L (3.5-5.1); Sodium 141 mmol/L (135-145); eGFR 23.98
[2023-09-29] MEDS: VANCOCIN 540 MG IV (03:31)
--- NOTE | 2023-09-29 05:36 | HPS.HSE ---
Family Physician
-
Family Physician: Ines Carlos
Chief Complaint
-
Melissa pain despite ABx
History of Present Illness
HPI
73M Obese Diabetic HX chronic venous stasis dermatitis Melissa, PVD with peripheral neuropathy , chronic ambulatory dysfunction uses walker at baseline whowas DC form SNF yesterday seen at ER for evalaution of ongoing Lt Melissa.
Recently LLEx was treated with ABx ( ? name)
Noted leucocytosis
No fever
LExs: noted for multiple open ulcers with moderate foul smelling drainage along with erythema
Medical History
Past Medical History
Past Medical History: Reports Other
Additional Past Medical History:
DM2
CAD/AK with stent
CKD3b
HTN
HLD,
glaucoma
gout
morbid obesity
PVD with peripheral neuropathy
chronic venous stasis dermatitis
Chronic ambulatory dysfunction uses walker at baseline
Past Surgical History: Reports Other
Additional Past Surgical History:
Cath with stent, 1999 left femur fracture repair with jerry, left knee replacement
Social History
Tobacco: Non-smoker
Alcohol: None
Drug: None
Personal:
Living: With Family
Family History
Family History: Not pertinent
Allergies / Home Medications
Allergies reflects when Allergies were last updated in [email or web address].
Home Medications with original date entered in [email or web address]
Allergy/Medication List:
Allergies
Allergy/AdvReac Type Severity Reaction Status Date / Time
soy Allergy face Verified 09/28/23 23:27
swelling
and
wheezing
NSAIDS (Non-Steroidal AdvReac stage 3 Verified 09/28/23 23:27
Anti-Inflamma kidney
disease
chocolate syrup Allergy Pharmacy Uncoded 09/28/23 23:27
to Review
hay fever Allergy sneezing,runny Uncoded 09/28/23 23:27
nose,itchy
eyes
Home Medications
atorvastatin 80 mg tablet 80 mg PO HS High cholesterol 02/09/15
tamsulosin 0.4 mg capsule 0.4 mg PO QPM Urinary issue 02/09/15
aripiprazole 5 mg tablet 10 mg PO QPM Mental Health/Anxiety 03/21/20
cyanocobalamin (vitamin B-12) 1,000 mcg tablet 1,000 mcg PO DAILY Supplement 03/21/20
loratadine 10 mg tablet 10 mg PO DAILY Allergies 03/21/20
sodium bicarbonate 650 mg tablet 650 mg PO DAILY Hx metabolic acidosis 03/21/20
ferrous sulfate 325 mg (65 mg iron) tablet (Feosol) 325 mg PO DAILY #30 tabs 03/25/20
acetaminophen 650 mg tablet,extended release 1,300 mg PO BIDPRN PRN mild pain 08/02/23
aspirin 81 mg tablet,delayed release 81 mg PO DAILY Blood Clot Prevention/Tx 08/02/23
brinzolamide 1 %-brimonidine 0.2 % eye drops,suspension (Simbrinza) 1 drp BOTH EYES BID Eye Condition 08/02/23
carbamazepine 200 mg tablet,extended release,12 hr 300 mg PO BID Neurological Condition 08/02/23
travoprost 0.004 % eye drops 1 drp BOTH EYES QPM Eye Condition 08/02/23
turmeric 400 mg capsule 400 mg PO BID Supplement 08/02/23
white petrolatum-mineral oil topical cream 1 applic topical DAILY apply to B/L feet and legs 08/02/23
nifedipine 30 mg tablet,extended release 60 mg (2 x 30 mg) PO BID HTN #60 tabs 08/06/23
oxycodone 5 mg tablet 5 mg PO Q8HPRN PRN mod sev pain #14 tabs 08/06/23
chlorthalidone 25 mg tablet 25 mg PO DAILY 09/29/23
gabapentin 100 mg tablet 100 mg PO TID 09/29/23
losartan 25 mg tablet 25 mg PO DAILY 09/29/23
melatonin 5 mg tablet 6 mg PO HS 09/29/23
Review of Systems
-
Constitutional: Reports No Symptoms
EENT: Reports No Symptoms
Respiratory: Reports No Symptoms
Cardiac: Reports No Symptoms
Abdomen/GI: Reports No Symptoms
: Reports No Symptoms
Musculoskeletal: Reports No Symptoms
Skin: Reports See HPI
Neurological: Reports No Symptoms
Endocrine: Reports No Symptoms
Hematologic/Lymphatic: Reports No Symptoms
Psych: Reports No Symptoms
Physical Exam
Vital Signs
Vital Signs
Temp Pulse Resp BP Pulse Ox
98.4 F 88 20 162/72 98
09/29/23 02:32 09/29/23 02:35 09/29/23 02:35 09/29/23 02:35 09/29/23 02:35
Physical Exam
General: Obese
HEENT: Anicteric and Moist mucous membranes
Respiratory: Clear; No Wheezes, Rales or Rhonchi
Cardiac: S1/S2 and Regular Rhythm
Breast: Deferred by me
GI: Soft, Non Tender, Non Distended and Normal Bowel Sounds
Rectal: Deferred by Provider
Genito-urinary: Deferred by me
Musculoskeletal: Other (HX chronic venous stasis dermatitis,)
Skin: Other (LLEx cellultis with infectedd open ulcers )
Neuro: AO x 3
Psych: Calm
Laboratory Results
-
09/29/23 02:30
09/29/23 02:30
Laboratory Results
Lactic Acid Cancelled 09/29/23 06:15
Data Reviewed
-
Lab Data: Labs Reviewed by me
Old Records: Reviewed
Impression/Plan
-
Reviewed VS: Afebrile BP 160/70 HR 88 RR 20
Data
WCC 13.9
Hgb 9.1 b/l hi 8s low 9s
Cl 111
CO2 19
BUN 51
Cr 2.7 - bl 2.5- 2.8
eGFR 24
NEG UA
Wd Cx sent
BCx sent x 2
Last hospitalist admission: 08/02/23 - 08/06/23 DC Dxs
Mechanical fall causing left humerus fracture
Left fifth digit fracture
Acute traumatic rhabdomyolysis
Acute hyponatremia
Acute kidney injury on chronic kidney disease stage IIIb
Metabolic acidosis
Acute blood loss anemia
ASSESSMENT & PLAN
B/l Melissa very tender cellulitis with infected open ulcers and malodorous drainage : Lt leg is worse than Rt
chronic venous stasis superimposed infection
Prior HX polymicrobic + WEd Cx
HX chronic venous stasis dermatitis, normally wear Tubigrip
Acute leukocytosis
- Wd Cx sent by ER
- BCx
- IV Ancef
- Wd care consult
- ID consult
[facility] HTN
-Continue losartan
CKD 3B: current Creat appears at baseline
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
DMT2
- add SSI,
HX stented AD
- On ASA and Atorvastatin
PAD with peripheral neuropathy
Bipolar disorder
- cont. Tegretol
BPH
- cont Flomax
HX Gout
-No reported meds
Glaucoma
- cont. Travatan p.m., Simbrinza
Morbid obesity due to excess calorie consumption
-Weight loss recommended
DVT Px: SQH
Code: Full
IP MS
[2023-09-29] MEDS: PROCARDIA XL (EXTENDED RELEASE) 60 MG PO ×2 (07:51→21:27)
[2023-09-29] MEDS: TYLENOL 650 MG PO ×3 (07:51→21:26)
[2023-09-29] MEDS: NEURONTIN 100 MG PO ×3 (07:51→21:27)
[2023-09-29] MEDS: ANCEF 10 IV ×2 (07:51→14:57)
[2023-09-29] MEDS: COZAAR 25 MG PO (07:52)
[2023-09-29] MEDS: HEPARIN 5000 UNITS SC ×2 (07:52→21:34)
[2023-09-29 07:57] LABS: Glucose - Point of Care 121 mg/dl (70-99)
[2023-09-29] MEDS: NOVOLOG FLEXPEN-LOW RESISTANCE SC ×3 (07:57→18:33)
[2023-09-29 09:31] LABS: Glycohemoglobin (HgbA1c) 6.5 % (4.0-5.6)
[2023-09-29 12:54] LABS: Glucose - Point of Care 129 mg/dl (70-99)
--- NOTE | 2023-09-29 12:55 | W.PN.HOSP.TC ---
Today's Communication/Plan
-
Antibiotics.
Wound care.
Arterial ultrasound.
Assessment / Plan
Assessment / Plan
Impression:
Chronic bilateral lower extremity cellulitis with superficial wounds and purulence
Conditions prior to admission
Most recent hospitalization with mechanical fall and left humerus fracture 08/02 - 08/06/2023.
Essential hypertension
Known insulin requiring diabetes managed by diet
CAD with history of stent
PAD.
CKD stage IIIb with baseline creatinine 2.5�2.8
Chronic metabolic acidosis
Chronic venous stasis
Anemia of chronic disease.
BPH.
Gout.
Bipolar disorder by history
Plan:
Bilateral lower extremity cellulitis with chronic wounds, chronic stasis dermatitis, mild purulence
Vascular ultrasound with concern for PAD: ESTEE.
Venous ultrasound
Cefazolin
Wound care
ID consultation
Essential hypertension.
Pending home medication reconciliation.
Continue nifedipine. In review of medical records losartan and chlorthalidone has been discontinued over recent admission 08/08.
History of CAD with stents
PAD
Continue aspirin
Continue statin
Lower extremity arterial ultrasound ordered.
Type 2 diabetes
Hemoglobin A1c 6.5
Not on glucose lowering medications MATERIAL STRESS TESTER.
Basal bolus protocol
Monitor blood glucose
Consider initiate Januvia
CKD stage IIIb with baseline creatinine 2.5�2.8.
Chronic metabolic acidosis.
Confirming home medications including bicarbonate administration
BPH.
Continue Flomax.
Chronic pain continue Neurontin
Bipolar disorder
Confirming outpatient regimen.
Previously on aripiprazole, carbamazepine
Anticipated Discharge: > 48 hours
Subjective/Interval History
-
Date of Service: September 29, 2023
Objective Data
-
Labs:
Laboratory Results
09/29/23
02:30
WBC 13.9 H
Hgb 9.1 L
Hct 28.0 L
Plt Count 371
Sodium 141
Potassium 4.1
Chloride 111 H
Carbon Dioxide 19 L
BUN 51 H
Creatinine 2.7 H
Glucose 117 H
Calcium 8.9
Vital Signs:
Vital Signs
Temp Pulse Resp BP Pulse Ox
98.4 F 83 16 164/86 97
09/29/23 07:50 09/29/23 07:50 09/29/23 07:50 09/29/23 07:50 09/29/23 07:50
I&O
09/28/23 09/29/23 09/30/23
06:59 06:59 06:59
Output Total 1405 / 1405
Balance -1405 / -1405
Physical Exam
-
General: Well Developed and No Apparent Distress
HEENT: Normocephalic, Atraumatic and Moist Mucous Membranes
Respiratory: Clear to Auscultation
Cardiac: Regular Rhythm and S1/S2; Negative Murmur, Rub or Gallop
GI: Soft, Nontender, Nondistended and Normal Bowel Sounds; Negative Organomegaly
Rectal: Deferred by Provider
Musculoskeletal: No Clubbing, No Cyanosis and No Edema
Skin: Negative Rash
Neuro: Awake, Alert, Oriented, AO x 3 and Nonfocal/Grossly Intact
--- NOTE | 2023-09-29 13:00 | PHANOTE ---
09/29/23: Contacted group home facility x 3 to obtain medication list as patient was not aware of current prescribed medications [patient discharged from [facility] on 09/28/23]; however, list was not received via fax. Patient brought
prescription medications from SNF in facility packaging and prescription medications were verified using these, however, OTC medications were not able to be verified [aspirin 81mg daily, vitamin B12 1000mcg daily, ferrous sulfate 325mg daily,
loratadine 10mg daily, hydrophor topical]. PDMP reviewed with no dispense of oxycodone since July 2023. No sodium bicarbonate tablets were sent with patient.
--- NOTE | 2023-09-29 13:18 | CM ---
Addendum entered by Kamille Brooke RN 09/29/23 15:47:
CM sent referral to [facility] via [facility].
Addendum entered by Kamille Brooke RN 09/29/23 14:41:
Patient was referred to [facility] care by [facility].
Original Note:
CM spoke with Fallon at [facility]. She confirmed that patient was discharged yesterday. PT and staff felt patient was able to be discharge to home. Patient was discharge with [facility], but Fallon is going to call CM back with agency. Patient does not
know the name of the agency. Patient stated that he left his discharge paperwork at [facility] so he is unclear on his discharge instructions. Patient advised that he drove home from [facility] and drove to the ER.
CM will continue to follow for needs. CM anticipating home discharge with [facility]N.
PLAN: Home with [facility]
--- NOTE | 2023-09-29 13:26 | CON.ID ---
Consultation
-
Date/Time Consultation Requested: 09/29/2023 0555
Date/Time Consultation Performed: 09/29/2023 1335
Requesting Provider: Dr. Logan Anne
Performing Provider: Dr. Henny Hay
Reason for Consultation: Leg cellulitis
Chief Complaint / Past History
Chief Complaint
Left leg redness and wounds
History of Present Illness
73 year old male with hx DM2, neuropathy, CKD3B, venous stasis dermatitis who was [facility] after left humerus fx ORIF. He was discharged to home from rehab yesterday. He presented to ED yesterday due to
persistent left leg redness and foul-smelling wounds. No fever or chills. Patient states that he did not have these leg wounds when he went to [facility]. He developed the wounds while at rehab. The left leg wounds got worse. His leg became
more red. He was placed on a course of cephalexin and he reports no improvement. He does have history of venous stasis and normally compliant with Tubigrip's at home.
Past History
Additional Past Medical History:
DM2
Neuropathy
HTN
CAD/stent
CKD3b
PVD
gout
venous stasis
bipolar disorder
BPH
Ambulatory dysfunction
Left proximal humerus fracture ORIF (08/04/23)
Left small finger proximal phalanx fracture closed reduction, percutaneous pinning (08/04/23)
Left femur fracture ORIF
Left TKR
Allergy History:
soy Allergy (Verified 09/28/23 23:27)
face swelling and wheezing
NSAIDS (Non-Steroidal Anti-Inflamma Adverse Reaction (Verified 09/28/23 23:27)
stage 3 kidney disease
chocolate syrup Allergy (Uncoded 09/28/23 23:27)
Pharmacy to Review
hay fever Allergy (Uncoded 09/28/23 23:27)
sneezing,runny nose,itchy eyes
Medications Reviewed: Yes
Current Antibiotics:
cefazolin
Social History
Tobacco: Non-Smoker
Alcohol: None
Drug: None
Personal:
Family History
Family History: Not Pertinent
Review of Systems
Review of Systems
General: Negative Fever, Chills or Change in Appetite
HEENT: Negative Sinus Problems or Headache
Cardiovascular: Negative Chest Pain or Dyspnea
Respiratory: Negative Dyspnea or Cough
Gasteroenterology: Negative Nausea or Vomiting
Genital / Urological: Negative Dysuria or Flank Pain
Endocrine: Negative Weakness
Neurological: Negative Headache or Dizziness
All systems: All other systems were reviewed and were negative
Vital Signs
Temp Pulse Resp BP Pulse Ox
98.4 F 83 16 164/86 97
09/29/23 07:50 09/29/23 07:50 09/29/23 07:50 09/29/23 07:50 09/29/23 07:50
Physical Exam
Physical Exam
Constitutional: No Acute Distress and Comfortable
Eyes: No Conjunctival Hemorrhage and Sclera Anicteric
Cardiovascular: Regular Rate and S1/S2
Pulmonary: Clear
Gastrointestinal: Soft, Non Tender, Non Distended and Normal Bowel Sounds
Extremities: Negative Edema
Wound: Other (Multiple shallow wounds of various sizes LLE, + pink erythema from ankle up to below knee. RLE review of wound photo medial leg with shallow wound, leg with mild erythema)
Lab / Diagnostic Study Results
09/29/23 02:30
09/29/23 02:30
Abs Immat Gran (auto) 0.1 10^3/uL (0-0.05) H 09/29/23 02:30
Absolute Neuts (auto) 10.8 10^3/uL (1.4-6.5) H 09/29/23 02:30
Absolute Lymphs (auto) 1.6 10^3/uL (1.2-3.4) 09/29/23 02:30
Absolute Monos (auto) 1.0 10^3/uL (0.1-0.6) H 09/29/23 02:30
Absolute Basos (auto) 0.1 10^3/uL (0-0.2) 09/29/23 02:30
Immature Gran % 0.6 % (0-0.5) H 09/29/23 02:30
Neutrophils % 77.8 % (42.2-75.2) H 09/29/23 02:30
Lymphocytes % 11.7 % (20.5-51.1) L 09/29/23 02:30
Monocytes % 7.0 % (1.7-9.3) 09/29/23 02:30
Eosinophils % 2.5 % (0-6) 09/29/23 02:30
Basophils % 0.4 % (0-2) 09/29/23 02:30
Lactic Acid Cancelled 09/29/23 06:15
Microbiology Results
Micro:
09/29/23 12:30 MRSA Screen - Pending
Nose
09/29/23 03:26 Wound Culture - Pending
Leg - Left Gram Stain - Preliminary
09/29/23 02:22 Blood Culture - Pending
Blood/Venous
09/29/23 02:30 Blood Culture - Pending
Blood/Venous
Assessment / Plan
# LLE cellulitis
# Venous stasis ulcers
# Leukocytosis
# DM, A1c 6.5
-Broaden cefazolin to cefepime.
-Appreciate wound care recs.
-Continue compression.
-Follow WBC.
--- NOTE | 2023-09-29 15:31 | WOUNDNOTE ---
R POSTERIOR LOWER LEG
--- NOTE | 2023-09-29 15:32 | WOUNDNOTE ---
FLO RN note: Patient admitted with B/L Leg Cellulitis.
See H&P for complete history. recently at [facility].
PMH: Bipolar disorder, NIDDM, HTN, angina, RI, frequent falls, gout and cellulitis of legs.
Wound Location and type/assessment: Patient admitted with: redness to legs, L>R and weeping venous ulcers mainly posterior legs, shallow pink. Very dry skin both legs and feet, + palpable pedal pulses. wounds assessed with Dr. Hay. Patient able to
stand, sacrum is intact. Assisted patient to lying position, able to lift legs with minimal assist. L posterior leg similar to R posterior leg with shallow open pink wounds, scant drainage. Dry crusty skin patches on anterior section of legs,
suspect intact skin underneath. L arm with an abrasion from previous fall. Heels intact.
Appetite: Good.
Pressure redistribution devices in place: Accumax appropriate.
Plan: Adaptic, and dry dressing for all wounds. Will add honey gel for L arm wound. Mineral oil to dry skin on both legs daily. Ac wraps knee high both legs. Confirmed wound care and compression to legs with Dr. Hay, patient to follow at wound
center as outpatient. Updated nurse, care plan and will follow as needed.
Note to case management of equipment requested for discharge: VN for wound care.
Recommend follow up at wound care center upon discharge.
--- NOTE | 2023-09-29 18:13 | PTCARENOTE ---
Pt. admitted to 2N from ED. VSS. Call [place]ona within reach. Patient oriented to unit.
[2023-09-29] MEDS: FLOMAX 0.400000000000000022 MG PO (18:30)
[2023-09-29] MEDS: STERILE WATER FOR INJECTION 10 ML IV (18:32)
[2023-09-29 18:33] LABS: Glucose - Point of Care 120 mg/dl (70-99)
[2023-09-29] MEDS: MAXIPIME 2000 MG IV (18:33)
[2023-09-29] MEDS: NON-FORMULARY ITEM 1 UNIT BOTH EYES ×2 (18:33→21:28)
[2023-09-29] MEDS: ABILIFY 10 MG PO (21:33)
[2023-09-29] MEDS: MELATONIN 6 MG PO (21:33)
[2023-09-29 21:53] LABS: Glucose - Point of Care 142 mg/dl (70-99)
--- NOTE | 2023-09-30 04:46 | DOWNTIME ---
There was a [employer] Client Shoulder Joiner Downtime on 09/30/2023 from 0100 to 09/30/2023 at 0439. Downtime documentation of patient's care, including medication administrations, has been reconciled in the electronic record per guidelines. Refer to the
patient's paper chart under the miscellaneous tab to see printed paper medication records and downtime forms.
[2023-09-30] MEDS: MAXIPIME 2000 MG IV ×2 (05:30→17:20)
[2023-09-30] MEDS: STERILE WATER FOR INJECTION 10 ML IV ×2 (05:30→17:20)
[2023-09-30 07:10] VITALS: BP 148/70
[2023-09-30 07:24] LABS: Glucose - Point of Care 135 mg/dl (70-99)
[2023-09-30] MEDS: NOVOLOG FLEXPEN-LOW RESISTANCE SC ×2 (07:28→16:53)
[2023-09-30] MEDS: PROCARDIA XL (EXTENDED RELEASE) 60 MG PO ×2 (08:20→21:10)
[2023-09-30] MEDS: NEURONTIN 100 MG PO ×3 (08:20→21:11)
[2023-09-30] MEDS: HEPARIN 5000 UNITS SC ×2 (08:20→21:09)
[2023-09-30] MEDS: TYLENOL 650 MG PO ×3 (08:20→21:11)
[2023-09-30] MEDS: HYDROPHOR 1 APPLIC TOPICAL (08:20)
[2023-09-30] MEDS: NON-FORMULARY ITEM 1 UNIT BOTH EYES ×3 (08:20→21:10)
[2023-09-30 08:42] LABS: Hematocrit 30.8 % (39.0-52.0); Hemoglobin 9.8 g/dL (13.0-18.0); Mean Corp Hgb Conc. 31.8 g/dL (33.0-37.0); Mean Corpuscular Hgb 27.8 pg (27.0-31.0); Mean Corpuscular Volume 87.3 fL (80.0-94.0); Platelet Count 464 10^3/uL (130-400); Red Blood Cell Count 3.53 10^6/uL (4.70-6.10); Red Cell Dist. Width 14.3 % (11.5-14.5); White Blood Cell Count 11.5 10^3/uL (4.8-10.8)
[2023-09-30 09:22] LABS: ALT (SGPT) 11 U/L (0-50); AST (SGOT) 20 U/L (17-59); Albumin 3.8 g/dl (3.5-5.0); Alkaline Phosphatase 131 U/L (38-126); Blood Urea Nitrogen 45 mg/dl (9-20); Calcium 9.6 mg/dl (8.4-10.2); Carbon Dioxide 20 mmol/L (22-30); Chloride 107 mmol/L (98-107); Estimated Creatinine Clearance 29 ml/min; Glucose 142 mg/dl (70-99); Potassium 4.6 mmol/L (3.5-5.1); Sodium 142 mmol/L (135-145); Total Bilirubin 0.3 mg/dl (0.2-1.3); Total Protein 7.1 g/dl (6.3-8.2); eGFR 27.62
--- NOTE | 2023-09-30 10:10 | W.PN.HOSP.TC ---
Addendum entered and electronically signed by Liam Baker MD 09/30/23 14:25:
Patient seen and examined
Discussed with resident.
Impression/plan:
Bilateral lower extremity cellulitis with superficial wounds and chronic stasis dermatitis.
Peripheral Doppler negative for DVT
Arterial ultrasound not suggestive of arterial insufficiency.
Continue wound care per
Antibiotics expanded to cefepime.
Essential hypertension
CKD stage III.
Monitor on current antihypertensive regimen
Follow BMP
Consider oral bicarbonate if persistent metabolic acidosis.
Physical therapy evaluation.
Original Note:
Today's Communication/Plan
-
Monitor CBC; continue cefepime
Assessment / Plan
Assessment / Plan
Impression:
Chronic bilateral lower extremity cellulitis with superficial wounds and purulence
Plan:
#Bilateral lower extremity cellulitis with chronic wounds, chronic stasis dermatitis, mild purulence
-Arterial U/S: RLE: TBI measures 0.92. Multiphasic flow throughout the leg with no focal or flow-limiting stenosis appreciated. LLE:TBI minimally decreased measuring 0.66. Multiphasic flow seen within the common femoral through popliteal arteries no
focal stenosis appreciated.
-Venous ultrasound negative
-Discontinued Cefazolin
-Cefepime was stared per ID on 09/28
-WBC count trending down
-Wound care consult pending
-monitor cbc
#Essential hypertension.
-Continue nifedipine. In review of medical records losartan and chlorthalidone has been discontinued over recent admission 08/08.
-BP stable, possible restarting losartan upon discharge.
#History of CAD with stents
-PAD
-Continue aspirin
-Continue statin
#Type 2 diabetes
-Hemoglobin A1c 6.5
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
-Basal bolus protocol low
-Monitor blood glucose
#CKD stage IIIb with baseline creatinine 2.5�2.8.
-Creatinine today was 2.4
-Chronic metabolic acidosis.
-bicarbonate administration will be assessed pending on tomorrow's bmp
#BPH.
-Continue Flomax.
#Chronic pain
-continue Neurontin
#Bipolar disorder
-Previously on aripiprazole, carbamazepine
-Continue Abilify
DVT ppx: Hep subcut Q12
code: full
Anticipated Discharge: 24 - 48 hours
Subjective/Interval History
-
Date of Service: September 30, 2023
Patient says he still feels some 'tightness' in his legs.
Objective Data
-
Labs:
Laboratory Results
09/30/23
07:43
WBC 11.5 H
Hgb 9.8 L
Hct 30.8 L
Plt Count 464 H D
Sodium 142
Potassium 4.6
Chloride 107
Carbon Dioxide 20 L
BUN 45 H
Creatinine 2.4 H
Glucose 142 H
Calcium 9.6
Total Bilirubin 0.3
AST 20
ALT 11
Alkaline Phosphatase 131 H
Vital Signs:
Vital Signs
Temp Pulse Resp BP Pulse Ox
98.4 F 92 18 148/70 98
09/30/23 07:10 09/30/23 07:10 09/30/23 07:10 09/30/23 08:20 09/30/23 07:10
I&O
09/29/23 09/30/23 10/01/23
06:59 06:59 06:59
Intake Total 360 / 360
Output Total 1405 / 1405
Balance -1405 / -1405 360 / 360
Review of Systems
-
History Source: Patient
All other systems: Reviewed and negative
Physical Exam
-
General: No Apparent Distress
HEENT: Normocephalic
Respiratory: Clear to Auscultation
Cardiac: Regular Rhythm and S1/S2; Negative Murmur
GI: Soft, Nontender and Nondistended
Musculoskeletal: No Edema
Neuro: Awake, Alert and Oriented
Psych: Calm
--- NOTE | 2023-09-30 11:10 | W.PN.ID1 ---
Date of Service
Date of Service: September 30, 2023
Today's Communication
Continue cefepime.
Assessment / Plan
# LLE cellulitis
# Venous stasis ulcers
# Leukocytosis improving
# DM, A1c 6.5
-Superficial wound cx GNR
-Continue cefepime (d2)
-Appreciate wound care recs.
-Continue compression.
-Follow WBC.
#Additional Past Medical History:
DM2
Neuropathy
HTN
CAD/stent
CKD3b
PVD
gout
venous stasis
bipolar disorder
BPH
Ambulatory dysfunction
Left proximal humerus fracture ORIF (08/04/23)
Left small finger proximal phalanx fracture closed reduction, percutaneous pinning (08/04/23)
Left femur fracture ORIF
Left TKR
Chief Complaint
-: Cellulitis
Subjective / Review of Systems
Leg feels slightly better. Wounds still painful.
Vital Signs / Physical Exam
Vital Signs
Vital Signs
Temp Pulse Resp BP Pulse Ox
98.4 F 92 18 148/70 98
09/30/23 07:10 09/30/23 07:10 09/30/23 07:10 09/30/23 08:20 09/30/23 10:58
Physical Exam
Constitutional: No Acute Distress and Comfortable
Extremities: Erythema (LLE ankle to below knee. Gauze with dried blood.)
Objective Data
Lab Data
Lab Results
09/30/23 07:43
09/30/23 07:43
Estimated Creat Clear 29 ml/min 09/30/23 07:43
Lactic Acid Cancelled 09/29/23 06:15
Total Bilirubin 0.3 mg/dl (0.2-1.3) 09/30/23 07:43
AST 20 U/L (17-59) 09/30/23 07:43
ALT 11 U/L (0-50) 09/30/23 07:43
Alkaline Phosphatase 131 U/L (38-126) H 09/30/23 07:43
Most recent labs reviewed.
Micro Results:
09/29/23 03:26 Wound Culture - Preliminary
Leg - Left Gram negative bacilli
Gram Stain - Preliminary
09/29/23 02:30 Blood Culture - Preliminary
Blood/Venous No Growth in 24 hours- Final report to follow
09/29/23 02:22 Blood Culture - Preliminary
Blood/Venous No Growth in 24 hours- Final report to follow
09/29/23 12:30 MRSA Screen - Pending
Nose
[2023-09-30 12:02] LABS: Glucose - Point of Care 150 mg/dl (70-99)
--- NOTE | 2023-09-30 12:59 | PN.CDI ---
Addendum entered and electronically signed by Liam Baker MD 09/30/23 15:12:
No additional comments.
Please read assessment.
Original Note:
CDI
- -
CDI:
Physician Documentation Request
Admit Date: 09/29/23 05:53
Dear Doctor Olivia,
Please review the following and provide your response in the progress notes.
Clinical Indicators:
PN, 09/28
#Bilateral lower extremity cellulitis with chronic wounds,
#...chronic stasis dermatitis, mild purulence
#Vascular ultrasound with concern for PAD: ESTEE.
#Type 2 diabetes
#Hemoglobin A1c 6.5
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
Please clarify the relationship, if any, between these conditions:
Multifactorial, Bilateral lower extremity cellulitis is associated with, related to PAD and Diabetes
Bilateral lower extremity cellulitis is associated with, related to PAD
Bilateral lower extremity cellulitis is associated with, related to Diabetes
Other(please specify)
Use of terms such as suspected, likely, concern for, or probable (associated with a specific diagnosis that is being evaluated, monitored, or treated as if it exists) are acceptable and can be coded in the inpatient setting, when documented at the
time of discharge.
Thank you,
Michelle Gusman RN BSN CCDS
CDI Specialist
please contact via tiger text
Please use your independent medical judgment in providing your response.
[2023-09-30] MEDS: NOVOLOG FLEXPEN-LOW RESISTANCE 1 UNITS SC (13:36)
[2023-09-30 15:30] VITALS: BP 143/65
--- NOTE | 2023-09-30 15:35 | CM ---
B/L LE cellulitis. IV/AB, follow WBC. [facility]
[2023-09-30 16:40] LABS: Glucose - Point of Care 140 mg/dl (70-99)
[2023-09-30 17:04] VITALS: BP 143/65
[2023-09-30] MEDS: FLOMAX 0.400000000000000022 MG PO (17:20)
[2023-09-30] MEDS: ABILIFY 10 MG PO (21:11)
[2023-09-30] MEDS: MELATONIN 6 MG PO (21:11)
[2023-09-30 21:21] LABS: Glucose - Point of Care 122 mg/dl (70-99)
[2023-09-30 23:24] VITALS: BP 100/53
[2023-10-01] MEDS: TYLENOL 650 MG PO ×3 (04:37→23:51)
[2023-10-01 05:41] VITALS: BMI 30.1
[2023-10-01] MEDS: STERILE WATER FOR INJECTION 10 ML IV ×2 (05:51→17:13)
[2023-10-01] MEDS: MAXIPIME IV (05:51)
[2023-10-01 07:18] LABS: Glucose - Point of Care 127 mg/dl (70-99)
[2023-10-01 07:38] VITALS: BP 158/87
[2023-10-01] MEDS: PROCARDIA XL (EXTENDED RELEASE) 60 MG PO ×2 (07:59→21:06)
[2023-10-01] MEDS: NOVOLOG FLEXPEN-LOW RESISTANCE SC ×3 (07:59→17:20)
[2023-10-01] MEDS: HEPARIN 5000 UNITS SC ×2 (08:00→21:05)
[2023-10-01] MEDS: MAXIPIME 2000 MG IV ×2 (08:00→17:13)
[2023-10-01] MEDS: HYDROPHOR 1 APPLIC TOPICAL (08:00)
[2023-10-01] MEDS: NEURONTIN 100 MG PO ×3 (08:00→21:06)
[2023-10-01] MEDS: NON-FORMULARY ITEM 1 UNIT BOTH EYES ×3 (08:01→21:05)
[2023-10-01] MEDS: LAC HYDRIN, AM LACTIN LOTION 1 APPLIC TOPICAL (08:01)
[2023-10-01 08:05] LABS: % Basophils 0.3 % (0-2); % Eosinophils 4.6 % (0-6); % Immature Granulocytes 0.3 % (0-0.5); % Lymphocytes 14.4 % (20.5-51.1); % Monocytes 7.1 % (1.7-9.3); % Neutrophils 73.3 % (42.2-75.2); Absolute Eosinophils 0.5 10^3/uL (0-0.7); Absolute Lymphocytes 1.5 10^3/uL (1.2-3.4); Absolute Monocytes 0.8 10^3/uL (0.1-0.6); Absolute Neutrophils 7.7 10^3/uL (1.4-6.5); Hematocrit 29.7 % (39.0-52.0); Hemoglobin 9.2 g/dL (13.0-18.0); Mean Corpuscular Hgb 27.4 pg (27.0-31.0); Mean Corpuscular Volume 88.4 fL (80.0-94.0); Mean Platelet Volume 9.2 fL (7.4-10.4); Nucleated Red Blood Cells % 0 % (-); Platelet Count 413 10^3/uL (130-400); Red Blood Cell Count 3.36 10^6/uL (4.70-6.10); Red Cell Dist. Width 14.4 % (11.5-14.5); White Blood Cell Count 10.6 10^3/uL (4.8-10.8)
[2023-10-01 08:30] LABS: Blood Urea Nitrogen 50 mg/dl (9-20); Calcium 9.6 mg/dl (8.4-10.2); Carbon Dioxide 20 mmol/L (22-30); Chloride 106 mmol/L (98-107); Estimated Creatinine Clearance 29 ml/min; Glucose 120 mg/dl (70-99); Potassium 5.2 mmol/L (3.5-5.1); Sodium 139 mmol/L (135-145); eGFR 27.62
--- NOTE | 2023-10-01 10:04 | W.PN.ID1 ---
Date of Service
Date of Service: October 01, 2023
Today's Communication
Continue cefepime (d3)
Add linezolid 600mg po bid for MRSA coverage and toxin inhibitor for Group A strep.
Assessment / Plan
# LLE cellulitis
# Venous stasis ulcers
# Leukocytosis improving
# DM, A1c 6.5
-Superficial wound cx with polymicrobial organisms: Group A Strep, MRSA, Klebsiella, GNR (may not reflect true pathogens)
-Continue cefepime (d3)
- Add linezolid 600mg po bid for MRSA coverage and toxin inhibitor for Group A strep.
-Continue wound care.
-Continue compression.
-Follow WBC.
#Additional Past Medical History:
DM2
Neuropathy
HTN
CAD/stent
CKD3b
PVD
gout
venous stasis
bipolar disorder
BPH
Ambulatory dysfunction
Left proximal humerus fracture ORIF (08/04/23)
Left small finger proximal phalanx fracture closed reduction, percutaneous pinning (08/04/23)
Left femur fracture ORIF
Left TKR
Chief Complaint
-: Cellulitis
Subjective / Review of Systems
No new complaints.
Vital Signs / Physical Exam
Vital Signs
Vital Signs
Temp Pulse Resp BP Pulse Ox
98.2 F 90 18 158/87 98
10/01/23 07:38 10/01/23 07:59 10/01/23 07:38 10/01/23 07:59 10/01/23 07:38
Physical Exam
Constitutional: No Acute Distress
Gastrointestinal: Soft, Non Tender and Non Distended
Extremities: Other (LLE still with erythema, dry macerated bleeding skin, multiple shallow wounds with light brown exudate); Negative Edema
Neurological: AO x 3
Objective Data
Lab Data
Lab Results
10/01/23 07:04
10/01/23 07:04
Estimated Creat Clear 29 ml/min 10/01/23 07:04
Lactic Acid Cancelled 09/29/23 06:15
Total Bilirubin 0.3 mg/dl (0.2-1.3) 09/30/23 07:43
AST 20 U/L (17-59) 09/30/23 07:43
ALT 11 U/L (0-50) 09/30/23 07:43
Alkaline Phosphatase 131 U/L (38-126) H 09/30/23 07:43
Most recent labs reviewed.
Micro Results:
09/29/23 03:26 Wound Culture - Preliminary
Leg - Left Klebsiella oxytoca
Gram negative bacilli
Staph aureus MRSA
Streptococcus pyogenes
Gram Stain - Preliminary
09/29/23 02:30 Blood Culture - Preliminary
Blood/Venous No Growth in 48 hours- Final report to follow
09/29/23 02:22 Blood Culture - Preliminary
Blood/Venous No Growth in 48 hours- Final report to follow
09/29/23 12:30 MRSA Screen - Final
Nose Staph aureus MRSA
[2023-10-01] MEDS: ZYVOX 600 MG PO ×2 (10:09→21:06)
--- NOTE | 2023-10-01 10:23 | W.PN.HOSP.TC ---
Addendum entered and electronically signed by Liam Baker MD 10/01/23 14:37:
Patient seen and examined
Discussed with resident
Bilateral lower extremity cellulitis complicated with chronic venous stasis and superficial ulcers.
Peripheral ultrasound negative for DVT
Normal ESTEE
Wound culture with multiple pathogens including gram-negative for MRSA
Continue wound care per
Continue antibiotics IV cefepime with addition of linezolid
Follow CBC while on linezolid.
CKD baseline creatinine in the baseline
Mild metabolic acidosis with bicarb of 20
Monitor
Essential hypertension
BP reasonably controlled on nifedipine
Off losartan and chlorthalidone.
Type 2 diabetes by history
Not on insulin or glucose lowering medications prior to admission
Continue basal bolus protocol with serial Accu-Cheks.
Original Note:
Today's Communication/Plan
-
Continue Cefepime and Linezolid; monitor CBC
Assessment / Plan
Assessment / Plan
Impression:
Chronic bilateral lower extremity cellulitis with superficial wounds and purulence
Plan:
#Bilateral lower extremity cellulitis with chronic wounds, chronic stasis dermatitis, mild purulence
-Arterial U/S: RLE: TBI measures 0.92. Multiphasic flow throughout the leg with no focal or flow-limiting stenosis appreciated. LLE:TBI minimally decreased measuring 0.66. Multiphasic flow seen within the common femoral through popliteal arteries no
focal stenosis appreciated.
-Venous ultrasound negative
-Discontinued Cefazolin
-Wound care consulted
-Continue Cefepime, was stared per ID on 09/28
-WBC count trending down
-Linezolid added due to positive MRSA screen, and wound culture with polymicrobial organisms: Group A Strep, MRSA, Klebsiella, GNR
-monitor cbc
#Essential hypertension.
-Continue nifedipine. In review of medical records losartan and chlorthalidone has been discontinued over recent admission 08/08.
-BP stable, possible restarting losartan upon discharge.
#History of CAD with stents
-PAD
-Continue aspirin
-Continue statin
#Type 2 diabetes
-Hemoglobin A1c 6.5
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
-Basal bolus protocol low
-Monitor blood glucose
#CKD stage IIIb with baseline creatinine 2.5�2.8.
-Creatinine today was 2.4
-Chronic metabolic acidosis.
-bicarbonate administration will be assessed pending on tomorrow's bmp
#BPH.
-Continue Flomax.
#Chronic pain
-continue Neurontin
#Bipolar disorder
-Previously on aripiprazole, carbamazepine
-Continue Abilify
DVT ppx: Hep subcut Q12
code: full
Anticipated Discharge: 24 - 48 hours
Subjective/Interval History
-
Date of Service: October 01, 2023
Objective Data
-
Labs:
Laboratory Results
10/01/23
07:04
WBC 10.6
Hgb 9.2 L
Hct 29.7 L
Plt Count 413 H
Sodium 139
Potassium 5.2 H
Chloride 106
Carbon Dioxide 20 L
BUN 50 H
Creatinine 2.4 H
Glucose 120 H
Calcium 9.6
Vital Signs:
Vital Signs
Temp Pulse Resp BP Pulse Ox
98.2 F 90 18 158/87 98
10/01/23 07:38 10/01/23 07:59 10/01/23 07:38 10/01/23 07:59 10/01/23 07:38
I&O
09/30/23 10/01/23 10/02/23
06:59 06:59 06:59
Intake Total 360 / 360 1440 / 1440
Balance 360 / 360 1440 / 1440
Review of Systems
-
History Source: Patient
All other systems: Reviewed and negative
Physical Exam
-
General: No Apparent Distress
HEENT: Normocephalic
Respiratory: Clear to Auscultation
Cardiac: Regular Rhythm and S1/S2; Negative Murmur
GI: Soft, Nontender and Nondistended
Musculoskeletal: No Edema
Neuro: Awake, Alert and Oriented
Psych: Calm
[2023-10-01 11:26] LABS: Glucose - Point of Care 168 mg/dl (70-99)
[2023-10-01 12:10] LABS: Glucose - Point of Care 160 mg/dl (70-99)
--- NOTE | 2023-10-01 15:24 | PTCARENOTE ---
This RN assisted patient on a walk around the unit. Patient steady with walker.
[2023-10-01 15:29] VITALS: BP 148/82
[2023-10-01] MEDS: FLOMAX 0.400000000000000022 MG PO (17:13)
[2023-10-01 17:21] LABS: Glucose - Point of Care 132 mg/dl (70-99)
[2023-10-01] MEDS: MELATONIN 6 MG PO (21:06)
[2023-10-01] MEDS: ABILIFY 10 MG PO (21:06)
[2023-10-01 22:01] LABS: Glucose - Point of Care 132 mg/dl (70-99)
[2023-10-01 23:01] VITALS: BP 108/63
[2023-10-02 04:14] VITALS: BMI 30.2
[2023-10-02] MEDS: TYLENOL 650 MG PO ×4 (05:50→23:11)
[2023-10-02] MEDS: MAXIPIME 2000 MG IV (05:51)
[2023-10-02] MEDS: STERILE WATER FOR INJECTION 10 ML IV (05:52)
[2023-10-02 06:28] LABS: Blood Urea Nitrogen 53 mg/dl (9-20); Carbon Dioxide 20 mmol/L (22-30); Chloride 106 mmol/L (98-107); Estimated Creatinine Clearance 30 ml/min; Glucose 130 mg/dl (70-99); Potassium 5.5 mmol/L (3.5-5.1); Sodium 141 mmol/L (135-145); eGFR 25.09
[2023-10-02 07:15] VITALS: BP 169/98
[2023-10-02 07:22] LABS: Glucose - Point of Care 136 mg/dl (70-99)
[2023-10-02] MEDS: NOVOLOG FLEXPEN-LOW RESISTANCE SC ×3 (08:06→17:15)
--- NOTE | 2023-10-02 08:10 | CM ---
met with patient at bedside,continue iv abx,bl le cellulitis,cont wound care,seen by therapy rec home care at discharge with nori.Plan:dc home with nori dahl.
--- NOTE | 2023-10-02 08:25 | W.PN.HOSP.TC ---
Addendum entered and electronically signed by Liam Baekr MD 10/02/23 14:29:
Patient seen and examined
Discussed with resident
Discussed with infectious disease service and RN.
Impression/plan:
Acute on chronic bilateral lower extremity cellulitis with superficial wounds in the settings of venous stasis dermatitis.
No evidence of systemic infection or sepsis.
Wound cultures reviewed and antibiotic regimen adjusted accordingly with linezolid and Zosyn
Plan is for wound care and IV antibiotics for another 48 hours and reassess.
Hyperkalemia in the settings CKD and chronic metabolic acidosis.
Lokelma given
IVF and oral bicarb initiated.
Original Note:
Today's Communication/Plan
-
Given lokelma and sodium bicard for hyperkalemia
Zosyn started as per ID
monitor cbc and bmp
Assessment / Plan
Assessment / Plan
Impression:
Chronic bilateral lower extremity cellulitis with superficial wounds and purulence
Plan:
#Bilateral lower extremity cellulitis with chronic wounds, chronic stasis dermatitis, mild purulence
-Arterial U/S: RLE: TBI measures 0.92. Multiphasic flow throughout the leg with no focal or flow-limiting stenosis appreciated. LLE:TBI minimally decreased measuring 0.66. Multiphasic flow seen within the common femoral through popliteal arteries no
focal stenosis appreciated.
-Venous ultrasound negative
-Discontinued Cefazolin
-Countinue wound care
-WBC count trending down
-superficial wound culture due to positive MRSA screen, and wound culture with polymicrobial organisms: Group A Strep, MRSA, Klebsiella, GNR
-Discontinued Cefepime and changed to Zosyn as per ID
-Continue Linezolid
-monitor CBC
#Essential hypertension.
-Continue nifedipine. In review of medical records losartan and chlorthalidone has been discontinued over recent admission 08/08.
-BP stable, possible restarting losartan upon discharge.
#History of CAD with stents
-PAD
-Continue aspirin
-Continue statin
#Type 2 diabetes
-Hemoglobin A1c 6.5
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
-Basal bolus protocol low
-Monitor blood glucose
#CKD stage IIIb with baseline creatinine 2.5�2.8.
-Chronic metabolic acidosis.
-Creatinine today was 2.6 (increased from 2.4 yesterday)
-potassium 5.5, gave single dose of Lokelma
-single dose of sodium bicarb given due to hyperkalemia possibly from met acidosis
-monitor bmp
#BPH.
-Continue Flomax.
#Chronic pain
-continue Neurontin
#Bipolar disorder
-Previously on aripiprazole, carbamazepine
-Continue Abilify
DVT ppx: Hep subcut Q12
code: full
Anticipated Discharge: 24 - 48 hours
Subjective/Interval History
-
Date of Service: October 02, 2023
Objective Data
-
Labs:
Laboratory Results
10/02/23
05:15
Sodium 141
Potassium 5.5 H
Chloride 106
Carbon Dioxide 20 L
BUN 53 H
Creatinine 2.6 H
Glucose 130 H
Calcium 10.0
Vital Signs:
Vital Signs
Temp Pulse Resp BP Pulse Ox
98.5 F 116 18 108/63 97
10/01/23 23:01 10/01/23 23:01 10/01/23 23:01 10/01/23 23:01 10/01/23 23:01
I&O
10/01/23 10/02/23 10/03/23
06:59 06:59 06:59
Intake Total 1440 / 1440 1380 / 1380
Balance 1440 / 1440 1380 / 1380
Review of Systems
-
History Source: Patient
All other systems: Reviewed and negative
Physical Exam
-
General: No Apparent Distress
HEENT: Normocephalic
Respiratory: Clear to Auscultation
Cardiac: Regular Rhythm and S1/S2; Negative Murmur
GI: Soft, Nontender and Nondistended
Musculoskeletal: No Edema
Neuro: Awake, Alert and Oriented
Psych: Calm
[2023-10-02 09:28] LABS: % Basophils 0.4 % (0-2); % Eosinophils 4.3 % (0-6); % Immature Granulocytes 0.4 % (0-0.5); % Lymphocytes 11.7 % (20.5-51.1); % Monocytes 7.1 % (1.7-9.3); % Neutrophils 76.1 % (42.2-75.2); Absolute Eosinophils 0.4 10^3/uL (0-0.7); Absolute Lymphocytes 1.2 10^3/uL (1.2-3.4); Absolute Monocytes 0.7 10^3/uL (0.1-0.6); Absolute Neutrophils 7.7 10^3/uL (1.4-6.5); Hematocrit 29.3 % (39.0-52.0); Hemoglobin 9.2 g/dL (13.0-18.0); Mean Corp Hgb Conc. 31.4 g/dL (33.0-37.0); Mean Corpuscular Hgb 27.3 pg (27.0-31.0); Mean Corpuscular Volume 86.9 fL (80.0-94.0); Mean Platelet Volume 9.2 fL (7.4-10.4); Nucleated Red Blood Cells % 0 % (-); Platelet Count 454 10^3/uL (130-400); Red Blood Cell Count 3.37 10^6/uL (4.70-6.10); Red Cell Dist. Width 14.3 % (11.5-14.5); White Blood Cell Count 10.2 10^3/uL (4.8-10.8)
[2023-10-02] MEDS: PROCARDIA XL (EXTENDED RELEASE) 60 MG PO ×2 (09:35→20:41)
[2023-10-02] MEDS: NEURONTIN 100 MG PO ×3 (09:35→20:44)
[2023-10-02] MEDS: ZYVOX 600 MG PO ×2 (09:35→20:42)
[2023-10-02] MEDS: HEPARIN 5000 UNITS SC ×2 (09:36→20:40)
[2023-10-02] MEDS: NON-FORMULARY ITEM 1 UNIT BOTH EYES ×3 (09:36→20:41)
[2023-10-02] MEDS: HYDROPHOR 1 APPLIC TOPICAL (09:38)
[2023-10-02] MEDS: LAC HYDRIN, AM LACTIN LOTION 1 APPLIC TOPICAL (09:39)
[2023-10-02] MEDS: NSS 1000 IV (09:41)
[2023-10-02] MEDS: LOKELMA 10 GRAM PO (09:41)
--- NOTE | 2023-10-02 11:11 | W.PN.ID1 ---
Date of Service
Date of Service: October 02, 2023
Today's Communication
Zosyn and linezolid through the weekend.
On Thursday, anticipate dc home on po abx's.
Assessment / Plan
# LLE cellulitis
# Venous stasis ulcers
# Leukocytosis resolved
# DM, A1c 6.5
-Superficial wound cx with polymicrobial organisms: Group A Strep, MRSA, Klebsiella, ESBL-E. coli (organisms may not reflect true pathogens)
-Change cefepime to Zosyn
- Continue linezolid 600mg po bid for MRSA coverage and toxin inhibitor for Group A strep.
- On Thursday, anticipate dc home on po abx's.
-Continue wound care.
-Continue compression.
# CAROL on CKD3b
#Additional Past Medical History:
DM2
Neuropathy
HTN
CAD/stent
CKD3b
PVD
gout
venous stasis
bipolar disorder
BPH
Ambulatory dysfunction
Left proximal humerus fracture ORIF (08/04/23)
Left small finger proximal phalanx fracture closed reduction, percutaneous pinning (08/04/23)
Left femur fracture ORIF
Left TKR
Chief Complaint
-: Cellulitis
Subjective / Review of Systems
c/o pain with dressing changes.
Vital Signs / Physical Exam
Vital Signs
Vital Signs
Temp Pulse Resp BP Pulse Ox
98.7 F 63 20 169/98 98
10/02/23 07:15 10/02/23 09:35 10/02/23 07:15 10/02/23 09:35 10/02/23 08:00
Physical Exam
Constitutional: No Acute Distress and Comfortable
Pulmonary: Clear
Extremities: Erythema (LLE: slight decreased)
Wound: Other (LLE wounds dry - bleeds easily)
Neurological: AO x 3
Objective Data
Lab Data
Lab Results
10/02/23 05:15
10/02/23 05:15
Estimated Creat Clear 30 ml/min 10/02/23 05:15
Lactic Acid Cancelled 09/29/23 06:15
Total Bilirubin 0.3 mg/dl (0.2-1.3) 09/30/23 07:43
AST 20 U/L (17-59) 09/30/23 07:43
ALT 11 U/L (0-50) 09/30/23 07:43
Alkaline Phosphatase 131 U/L (38-126) H 09/30/23 07:43
Most recent labs reviewed.
Micro Results:
09/29/23 03:26 Wound Culture - Final
Leg - Left Klebsiella oxytoca
Escherichia coli - ESBL
Staph aureus MRSA
Streptococcus pyogenes
Gram Stain - Final
09/29/23 02:30 Blood Culture - Preliminary
Blood/Venous No Growth in 72 hours- Final report to follow
09/29/23 02:22 Blood Culture - Preliminary
Blood/Venous No Growth in 72 hours- Final report to follow
09/29/23 12:30 MRSA Screen - Final
Nose Staph aureus MRSA
Care Review
Plan reviewed with: Physician (Dr. Baker)
[2023-10-02 11:14] LABS: Glucose - Point of Care 128 mg/dl (70-99)
[2023-10-02] MEDS: SODIUM BICARBONATE 650 MG PO (12:14)
[2023-10-02] MEDS: ZOSYN 50 IV ×3 (12:14→23:10)
[2023-10-02 15:30] VITALS: BP 153/71
[2023-10-02 17:06] LABS: Glucose - Point of Care 143 mg/dl (70-99)
[2023-10-02] MEDS: FLOMAX 0.400000000000000022 MG PO (17:16)
[2023-10-02] MEDS: ABILIFY 10 MG PO (20:43)
[2023-10-02] MEDS: MELATONIN 6 MG PO (20:44)
[2023-10-02 22:04] LABS: Glucose - Point of Care 160 mg/dl (70-99)
[2023-10-02 23:05] VITALS: BP 164/68
[2023-10-03] VITALS: BP 125/65
[2023-10-03] MEDS: TYLENOL 650 MG PO ×4 (03:13→23:51)
[2023-10-03 05:12] VITALS: BMI 30.5
[2023-10-03] MEDS: ZOSYN 50 IV ×4 (05:20→23:51)
[2023-10-03 07:05] VITALS: BP 179/82
[2023-10-03 07:07] LABS: % Basophils 0.5 % (0-2); % Eosinophils 4.7 % (0-6); % Immature Granulocytes 0.5 % (0-0.5); % Lymphocytes 16.5 % (20.5-51.1); % Monocytes 7.6 % (1.7-9.3); % Neutrophils 70.2 % (42.2-75.2); Absolute Basophils 0.1 10^3/uL (0-0.2); Absolute Eosinophils 0.4 10^3/uL (0-0.7); Absolute Immature Granulocytes 0.1 10^3/uL (0-0.05); Absolute Lymphocytes 1.5 10^3/uL (1.2-3.4); Absolute Monocytes 0.7 10^3/uL (0.1-0.6); Absolute Neutrophils 6.6 10^3/uL (1.4-6.5); Hematocrit 28.4 % (39.0-52.0); Mean Corp Hgb Conc. 31.7 g/dL (33.0-37.0); Mean Corpuscular Hgb 27.5 pg (27.0-31.0); Mean Corpuscular Volume 86.9 fL (80.0-94.0); Mean Platelet Volume 9.1 fL (7.4-10.4); Nucleated Red Blood Cells % 0 % (-); Platelet Count 433 10^3/uL (130-400); Red Blood Cell Count 3.27 10^6/uL (4.70-6.10); Red Cell Dist. Width 14.3 % (11.5-14.5); White Blood Cell Count 9.4 10^3/uL (4.8-10.8)
[2023-10-03 07:09] LABS: Glucose - Point of Care 109 mg/dl (70-99)
[2023-10-03 07:26] LABS: Glucose - Point of Care 110 mg/dl (70-99)
[2023-10-03 07:30] LABS: Blood Urea Nitrogen 52 mg/dl (9-20); Calcium 9.7 mg/dl (8.4-10.2); Carbon Dioxide 19 mmol/L (22-30); Chloride 110 mmol/L (98-107); Estimated Creatinine Clearance 32 ml/min; Glucose 110 mg/dl (70-99); Sodium 139 mmol/L (135-145); eGFR 27.62
[2023-10-03] MEDS: NOVOLOG FLEXPEN-LOW RESISTANCE SC ×3 (07:50→16:04)
--- NOTE | 2023-10-03 08:21 | W.PN.HOSP.TC ---
Today's Communication/Plan
-
Zosyn and linezolid through October 03
Transition to oral antibiotics on per ID
Renal status stable with bicarb of 19 continue sodium bicarb orally
Potassium 5.0 would hold look further Lokelma and recheck in a.m.
Assessment / Plan
Assessment / Plan
Impression:
Chronic bilateral lower extremity cellulitis with superficial wounds and purulence
Plan:
#Bilateral lower extremity cellulitis with chronic wounds, chronic stasis dermatitis, mild purulence
-Arterial U/S: RLE: TBI measures 0.92. Multiphasic flow throughout the leg with no focal or flow-limiting stenosis appreciated. LLE:TBI minimally decreased measuring 0.66. Multiphasic flow seen within the common femoral through popliteal arteries no
focal stenosis appreciated.
-Venous ultrasound negative
-Discontinued Cefazolin
-Countinue wound care
-WBC count trending down
-superficial wound culture due to positive MRSA screen, and wound culture with polymicrobial organisms: Group A Strep, MRSA, Klebsiella, GNR
-Discontinued Cefepime and changed to Zosyn as per ID
-Continue Linezolid
-monitor CBC
#Essential hypertension.
-Continue nifedipine. In review of medical records losartan and chlorthalidone has been discontinued over recent admission 08/08.
-BP stable, possible restarting losartan upon discharge.
#History of CAD with stents
-PAD
-Continue aspirin
-Continue statin
#Type 2 diabetes
-Hemoglobin A1c 6.5
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
-Basal bolus protocol low
-Monitor blood glucose
#CKD stage IIIb with baseline creatinine 2.5�2.8.
-Chronic metabolic acidosis.
-Creatinine today was 2.6 (increased from 2.4 yesterday)
-potassium 5.5, gave single dose of Lokelma
-single dose of sodium bicarb given due to hyperkalemia possibly from met acidosis
-monitor bmp
#BPH.
-Continue Flomax.
#Chronic pain
-continue Neurontin
#Bipolar disorder
-Previously on aripiprazole, carbamazepine
-Continue Abilify
DVT ppx: Hep subcut Q12
code: full
Anticipated Discharge: 24 - 48 hours
Subjective/Interval History
-
Date of Service: October 03, 2023
Doing okay sitting up in chair refers pain when he moves his legs and puts them on the recliner otherwise daily dressing changes
Okay we reviewed plans for early next week and transition to oral antibiotic then
Objective Data
-
Labs:
Laboratory Results
10/03/23
06:31
WBC 9.4
Hgb 9.0 L
Hct 28.4 L
Plt Count 433 H
Sodium 139
Potassium 5.0
Chloride 110 H
Carbon Dioxide 19 L
BUN 52 H
Creatinine 2.4 H
Glucose 110 H
Calcium 9.7
Vital Signs:
Vital Signs
Temp Pulse Resp BP Pulse Ox
97.8 F 87 18 179/82 100
10/03/23 07:05 10/03/23 07:05 10/03/23 07:05 10/03/23 07:05 10/03/23 07:05
I&O
10/02/23 10/03/23 10/04/23
06:59 06:59 06:59
Intake Total 1380 / 1380 1939
Balance 1380 / 1380 1939
Review of Systems
-
Unable to obtain full review of systems at this time due to: Dementia
History Source: Patient
Constitutional: Denies Fever
Skin: Reports Rash, Nail Changes and Skin Thickening
Physical Exam
-
General: Well Developed
HEENT: Normocephalic
Respiratory: Clear to Auscultation
Cardiac: Regular Rhythm
Psych: Calm and Apparent Dementia
[2023-10-03] MEDS: ZYVOX 600 MG PO ×2 (09:25→20:15)
[2023-10-03] MEDS: SODIUM BICARBONATE 650 MG PO (09:25)
[2023-10-03] MEDS: PROCARDIA XL (EXTENDED RELEASE) 60 MG PO ×2 (09:25→20:20)
[2023-10-03] MEDS: NEURONTIN 100 MG PO ×3 (09:25→20:15)
[2023-10-03] MEDS: HEPARIN 5000 UNITS SC ×2 (09:26→20:13)
[2023-10-03] MEDS: NON-FORMULARY ITEM 1 UNIT BOTH EYES ×3 (09:31→20:14)
[2023-10-03] MEDS: HYDROPHOR 1 APPLIC TOPICAL (09:35)
[2023-10-03] MEDS: LAC HYDRIN, AM LACTIN LOTION 1 APPLIC TOPICAL (09:36)
[2023-10-03 11:17] LABS: Glucose - Point of Care 125 mg/dl (70-99)
[2023-10-03 13:41] VITALS: BP 125/69
[2023-10-03 15:35] VITALS: BP 132/70
[2023-10-03 16:03] LABS: Glucose - Point of Care 109 mg/dl (70-99)
[2023-10-03] MEDS: FLOMAX 0.400000000000000022 MG PO (17:36)
[2023-10-03] MEDS: ABILIFY 10 MG PO (20:15)
[2023-10-03] MEDS: MELATONIN 6 MG PO (20:15)
[2023-10-04 00:01] LABS: Glucose - Point of Care 130 mg/dl (70-99)
[2023-10-04 00:04] VITALS: BP 160/67
[2023-10-04 05:08] VITALS: BMI 30.9
[2023-10-04] MEDS: ZOSYN 50 IV ×4 (05:28→23:47)
[2023-10-04 06:17] LABS: Hematocrit 29.5 % (39.0-52.0); Hemoglobin 9.3 g/dL (13.0-18.0); Mean Corp Hgb Conc. 31.5 g/dL (33.0-37.0); Mean Corpuscular Hgb 27.8 pg (27.0-31.0); Mean Corpuscular Volume 88.1 fL (80.0-94.0); Platelet Count 463 10^3/uL (130-400); Red Blood Cell Count 3.35 10^6/uL (4.70-6.10); Red Cell Dist. Width 14.4 % (11.5-14.5); White Blood Cell Count 9.6 10^3/uL (4.8-10.8)
[2023-10-04] MEDS: TYLENOL 650 MG PO ×3 (06:19→20:35)
[2023-10-04 06:38] LABS: Blood Urea Nitrogen 53 mg/dl (9-20); Calcium 9.7 mg/dl (8.4-10.2); Carbon Dioxide 21 mmol/L (22-30); Chloride 108 mmol/L (98-107); Estimated Creatinine Clearance 33 ml/min; Glucose 119 mg/dl (70-99); Potassium 5.2 mmol/L (3.5-5.1); Sodium 139 mmol/L (135-145); eGFR 27.62
[2023-10-04 07:05] VITALS: BP 165/80
[2023-10-04 07:18] LABS: Glucose - Point of Care 106 mg/dl (70-99)
[2023-10-04] MEDS: NOVOLOG FLEXPEN-LOW RESISTANCE SC ×3 (07:57→17:39)
--- NOTE | 2023-10-04 08:28 | W.PN.HOSP.TC ---
Today's Communication/Plan
-
Lokelma again today
Continue bicarb
Recheck chemistries in a.m.
ID to transition to oral antibiotics tomorrow
Assessment / Plan
Assessment / Plan
Impression:
Chronic bilateral lower extremity cellulitis with superficial wounds and purulence
Plan:
#Bilateral lower extremity cellulitis with chronic wounds, chronic stasis dermatitis, mild purulence
-Arterial U/S: RLE: TBI measures 0.92. Multiphasic flow throughout the leg with no focal or flow-limiting stenosis appreciated. LLE:TBI minimally decreased measuring 0.66. Multiphasic flow seen within the common femoral through popliteal arteries no
focal stenosis appreciated.
-Venous ultrasound negative
-Discontinued Cefazolin
-Countinue wound care
-WBC count trending down
-superficial wound culture due to positive MRSA screen, and wound culture with polymicrobial organisms: Group A Strep, MRSA, Klebsiella, GNR
-Discontinued Cefepime and changed to Zosyn as per ID
-Continue Linezolid
-Per ID to finish course of Zosyn and linezolid through October 03 and then transition to oral October 04
-monitor CBC
#Essential hypertension.
-Continue nifedipine. In review of medical records losartan and chlorthalidone has been discontinued over recent admission 08/08.
-BP stable, possible restarting losartan upon discharge.
#History of CAD with stents
-PAD
-Continue aspirin
-Continue statin
#Type 2 diabetes
-Hemoglobin A1c 6.5
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
-Basal bolus protocol low
-Monitor blood glucose
#CKD stage IIIb with baseline creatinine 2.5�2.8.
-Chronic metabolic acidosis.
-Creatinine today was 2.6 (increased from 2.4 yesterday)
-potassium 5.5, gave single dose of Lokelma
-single dose of sodium bicarb given due to hyperkalemia possibly from met acidosis
-monitor bmp
#BPH.
-Continue Flomax.
#Chronic pain
-continue Neurontin
#Bipolar disorder
-Previously on aripiprazole, carbamazepine
-Continue Abilify
DVT ppx: Hep subcut Q12
code: full
Anticipated Discharge: Within 24 hours
Subjective/Interval History
-
Date of Service: October 04, 2023
No complaints no issues overnight legs again rewrapped this morning
Objective Data
-
Labs:
Laboratory Results
10/04/23
05:58
WBC 9.6
Hgb 9.3 L
Hct 29.5 L
Plt Count 463 H
Sodium 139
Potassium 5.2 H
Chloride 108 H
Carbon Dioxide 21 L
BUN 53 H
Creatinine 2.4 H
Glucose 119 H
Calcium 9.7
Vital Signs:
Vital Signs
Temp Pulse Resp BP Pulse Ox
98.8 F 96 16 160/67 98
10/04/23 00:04 10/04/23 00:04 10/04/23 00:04 10/04/23 00:04 10/04/23 00:04
I&O
10/03/23 10/04/23 10/05/23
06:59 06:59 06:59
Intake Total 1939 2920 / 2920
Balance 1939 2920 / 2920
Physical Exam
-
General: Well Developed
HEENT: Normocephalic
Respiratory: Clear to Auscultation
Cardiac: Regular Rhythm
GI: Soft and Nontender
Musculoskeletal: No Edema and Other (Both legs wrapped below the knee with Ac wrap's/left knee TKA scar)
Neuro: Awake, Alert, Oriented and AO x 3
Data Reviewed
-
Total Time Spent with Patient (in minutes): 56
Labs: Labs Reviewed by me (Potassium 5.2 bicarb 21)
[2023-10-04] MEDS: LOKELMA 5 GRAM PO (08:40)
[2023-10-04] MEDS: HEPARIN 5000 UNITS SC ×2 (09:07→20:36)
[2023-10-04] MEDS: NEURONTIN 100 MG PO ×3 (09:09→21:25)
[2023-10-04] MEDS: ZYVOX 600 MG PO ×2 (09:09→20:37)
[2023-10-04] MEDS: PROCARDIA XL (EXTENDED RELEASE) 60 MG PO ×2 (09:09→20:40)
[2023-10-04] MEDS: SODIUM BICARBONATE 650 MG PO (09:10)
[2023-10-04] MEDS: NON-FORMULARY ITEM 1 UNIT BOTH EYES ×3 (09:11→20:41)
[2023-10-04] MEDS: LAC HYDRIN, AM LACTIN LOTION 1 APPLIC TOPICAL (09:16)
[2023-10-04] MEDS: HYDROPHOR 1 APPLIC TOPICAL (09:17)
[2023-10-04 11:55] LABS: Glucose - Point of Care 121 mg/dl (70-99)
[2023-10-04 15:35] VITALS: BP 163/77
--- NOTE | 2023-10-04 15:52 | CM ---
Reviewed the chart notes and spoke with the patient at the bedside. IMM signed and placed on chart.
Plan: Discharge to home with Shanae ANGULO.
[facility]
[2023-10-04 17:30] LABS: Glucose - Point of Care 117 mg/dl (70-99)
[2023-10-04] MEDS: FLOMAX 0.400000000000000022 MG PO (17:48)
[2023-10-04] MEDS: ABILIFY 10 MG PO (21:25)
[2023-10-04] MEDS: MELATONIN 6 MG PO (21:25)
[2023-10-04 21:26] LABS: Glucose - Point of Care 122 mg/dl (70-99)
--- NOTE | 2023-10-04 21:27 | W.DS.TRANS ---
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
-
Discharge Instructions:
Instructions:
Stand-Alone Forms:
Changes to Home Medications: Yes
Discharge Medications:
DC Medications w/original date entered in [employer]
atorvastatin 80 mg tablet 80 mg PO HS High cholesterol 02/09/15
tamsulosin 0.4 mg capsule 0.4 mg PO HS Urinary issue 02/09/15
aripiprazole 5 mg tablet 10 mg PO HS bipolar disorder 03/21/20
cyanocobalamin (vitamin B-12) 1,000 mcg tablet 1,000 mcg PO DAILY Supplement 03/21/20
loratadine 10 mg tablet 10 mg PO DAILY Allergies 03/21/20
sodium bicarbonate 650 mg tablet 650 mg PO DAILY Hx metabolic acidosis 03/21/20
aspirin 81 mg tablet,delayed release 81 mg PO DAILY Blood Clot Prevention/Tx 08/02/23
brinzolamide 1 %-brimonidine 0.2 % eye drops,suspension (Simbrinza) 1 drp BOTH EYES BID Eye Condition 08/02/23
travoprost 0.004 % eye drops 1 drp BOTH EYES QPM Eye Condition 08/02/23
turmeric 400 mg capsule 400 mg PO BID Supplement 08/02/23
white petrolatum-mineral oil topical cream 1 applic topical DAILY apply to B/L feet and legs 08/02/23
carbamazepine 300 mg capsule,extended release [id number] 300 mg PO BID bipolar disorder 09/29/23
chlorthalidone 25 mg tablet 25 mg PO DAILY Blood Pressure/fluid retention 09/29/23
ferrous sulfate 325 mg (65 mg iron) tablet (Feosol) 325 mg PO DAILY Supplement 09/29/23
gabapentin 100 mg capsule 100 mg PO TID Pain 09/29/23
losartan 25 mg tablet 25 mg PO DAILY Blood Pressure 09/29/23
melatonin 3 mg tablet 6 mg PO HS Sleep 09/29/23
nifedipine 60 mg tablet,extended release 60 mg PO AMHS Blood Pressure 09/29/23
Home Medication Changes
Linezolid 600mg PO BID through 10/10/23
HOLD carbamezapine 300mg PO BID until 10/12/23
Pending Results: No
--- NOTE | 2023-10-04 21:27 | W.DCSUMMARY ---
Addendum entered and electronically signed by Ronnell Gallegos MD 10/05/23 20:59:
Attending Addendum:
Read reviewed and agree. See same day progress note for additional details.
Ang Gallegos MD
Original Note:
Documented by User: Ester Spear, Resident, 10/05/23 16:09
Discharge Summary
Discharge Data
Date of Admission: 09/29/23
Date of Discharge: 10/05/23
-
Pending Results: No
Hospital Course
This is a 73 year old male patient with PMH of DMT2, history of chronic venous stasis dermatitis of left lower extremity, PVD with peripheral neuropathy,chronic ambulatory dysfunction uses walker at baseline came to the ED for chronic bilateral
lower extremity cellulitis with superficial wounds and purulence. Wound care consulted. Extremity arterial study was done and showed no arterial insufficiency. Venous U/S: no dvt. Initial antibiotic cefazolin was started then changed to cefepime by
ID. Leukocytosis started to improve. Superficial wound cultures showed polymicrobial organisms: Group A Strep, MRSA, Klebsiella, GNR. Linezolid was added to cover for MRSA. Cefepime was then changed to Zosyn per ID. As WBC was improving, he was
transitioned to oral antibiotics. �He had hyperkalemia in setting of CKD and chronic metabolic acidosis and single dose Lokelma given along with �IVF and oral bicarb. Potassium on 10/03 was 5.2, lokelma again and bmp was monitored.Patient improved
clinically and WBC trended down. Patient is to be discharged to home with visiting home nurse, hold carbamezapine until 10/12/23 and to continue his antibiotic course for 5 more days until 10/10/23.
Discharge Plan
-
Patient Disposition: Home with Home Care
Discharge Diagnosis/Procedures: Bilateral Lower Extremity Cellulitis/Chronic Metabolic Acidosis
Condition: Fair
Diet: Low Sodium
Activity: As tolerated
Other Services: VN
Activity Restrictions/Additional Instructions:
Wound Care Instructions
L arm: clean with soap and water, smear of honey gel, adaptic and silicone foam change daily and prn drainage
R leg: clean with soap and water, silicone foam change q other day and prn drainage
L leg: clean with soap and water, adaptic, abd pad and miroslava daily and prn drainage
Moisturize legs daily with mineral oil
ebony wraps daily knee high can remove at bedtime
leg elevation when sitting
Follow up at wound care center call for an appointment.
Referrals:
Ines Carlos MD [Family Provider] -
Prescriptions:
New
linezolid 600 mg Tablet
600 mg PO BID 5 Days Qty: 10 0RF
Continued
atorvastatin 80 MG tablet
80 mg PO HS
tamsulosin 0.4 MG capsule
0.4 mg PO HS
cyanocobalamin (vitamin B-12) 1,000 MCG tablet
1,000 mcg PO DAILY
sodium bicarbonate 650 MG tablet
650 mg PO DAILY
loratadine 10 MG tablet
10 mg PO DAILY
aripiprazole 5 MG tablet
10 mg PO HS
travoprost 0.004 % Drops
1 drp BOTH EYES QPM
aspirin 81 mg Tablet,Delayed Release (Dr/Ec)
81 mg PO DAILY
white petrolatum-mineral oil Cream
1 applic TOPICAL DAILY
Simbrinza 1-0.2 % Drops,Suspension
1 drp BOTH EYES BID
turmeric 400 mg Capsule
400 mg PO BID
losartan 25 mg Tablet
25 mg PO DAILY
melatonin 3 mg Tablet
6 mg PO HS
chlorthalidone 25 mg Tablet
25 mg PO DAILY
gabapentin 100 mg Capsule
100 mg PO TID
nifedipine 60 mg Tablet Extended Release
60 mg PO AMHS
ferrous sulfate [Feosol] 325 MG tablet
325 mg PO DAILY
Held
carbamazepine 300 mg Capsule, Er Multiphase 12 Hr
300 mg PO BID
Hold Instructions: Resume on 10/12/23.
Discharge Orders:
Discharge Patient (As Directed); Ordered 10/05/23
Ordered By: Ester Spear
Discharge Date and Time
Discharge Date/Time: 10/05/23 16:36
Print Language: MACEDONIAN

Documented by User: Ronnell Gallegos MD 10/05/23 20:58
Discharge Summary
Discharge Data
Date of Admission: 09/29/23
Date of Discharge: 10/05/23
Discharge Plan
-
Patient Disposition: Home with Home Care
Discharge Diagnosis/Procedures: Bilateral Lower Extremity Cellulitis/Chronic Metabolic Acidosis
Condition: Fair
Diet: Low Sodium
Activity: As tolerated
Other Services: VN
Activity Restrictions/Additional Instructions:
Wound Care Instructions
L arm: clean with soap and water, smear of honey gel, adaptic and silicone foam change daily and prn drainage
R leg: clean with soap and water, silicone foam change q other day and prn drainage
L leg: clean with soap and water, adaptic, abd pad and miroslava daily and prn drainage
Moisturize legs daily with mineral oil
ebony wraps daily knee high can remove at bedtime
leg elevation when sitting
Follow up at wound care center call for an appointment.
Referrals:
Ines Carlos MD [Family Provider] -
Prescriptions:
New
linezolid 600 mg Tablet
600 mg PO BID 5 Days Qty: 10 0RF
Continued
atorvastatin 80 MG tablet
80 mg PO HS
tamsulosin 0.4 MG capsule
0.4 mg PO HS
cyanocobalamin (vitamin B-12) 1,000 MCG tablet
1,000 mcg PO DAILY
sodium bicarbonate 650 MG tablet
650 mg PO DAILY
loratadine 10 MG tablet
10 mg PO DAILY
aripiprazole 5 MG tablet
10 mg PO HS
travoprost 0.004 % Drops
1 drp BOTH EYES QPM
aspirin 81 mg Tablet,Delayed Release (Dr/Ec)
81 mg PO DAILY
white petrolatum-mineral oil Cream
1 applic TOPICAL DAILY
Simbrinza 1-0.2 % Drops,Suspension
1 drp BOTH EYES BID
turmeric 400 mg Capsule
400 mg PO BID
losartan 25 mg Tablet
25 mg PO DAILY
melatonin 3 mg Tablet
6 mg PO HS
chlorthalidone 25 mg Tablet
25 mg PO DAILY
gabapentin 100 mg Capsule
100 mg PO TID
nifedipine 60 mg Tablet Extended Release
60 mg PO AMHS
ferrous sulfate [Feosol] 325 MG tablet
325 mg PO DAILY
Held
carbamazepine 300 mg Capsule, Er Multiphase 12 Hr
300 mg PO BID
Hold Instructions: Resume on 10/12/23.
Discharge Orders:
Discharge Patient (As Directed); Ordered 10/05/23
Ordered By: Ester Spear
Discharge Date and Time
Discharge Date/Time: 10/05/23 16:36
Print Language: MACEDONIAN
[2023-10-04 23:06] VITALS: BP 128/70
--- NOTE | 2023-10-05 02:27 | PTCARENOTE ---
Patient discussing several inappropriate topics that are sexual in nature. This RN told him to keep it to himself and to no longer discuss these topics with staff.
[2023-10-05 05:36] VITALS: BMI 30.3
[2023-10-05] MEDS: ZOSYN 50 IV ×2 (05:56→12:05)
[2023-10-05 06:00] VITALS: BMI 30.3
[2023-10-05 07:25] LABS: Glucose - Point of Care 119 mg/dl (70-99)
[2023-10-05] MEDS: NOVOLOG FLEXPEN-LOW RESISTANCE SC ×2 (07:44→11:49)
[2023-10-05 07:57] VITALS: BP 137/73
[2023-10-05] MEDS: TYLENOL 650 MG PO ×2 (08:10→12:31)
[2023-10-05] MEDS: ZYVOX 600 MG PO (08:10)
[2023-10-05] MEDS: PROCARDIA XL (EXTENDED RELEASE) 60 MG PO (08:10)
[2023-10-05] MEDS: NEURONTIN 100 MG PO ×2 (08:10→16:23)
[2023-10-05] MEDS: HEPARIN 5000 UNITS SC (08:11)
[2023-10-05] MEDS: SODIUM BICARBONATE 650 MG PO (08:11)
[2023-10-05] MEDS: NON-FORMULARY ITEM 1 UNIT BOTH EYES (08:12)
[2023-10-05] MEDS: HYDROPHOR 1 APPLIC TOPICAL (08:20)
[2023-10-05] MEDS: LAC HYDRIN, AM LACTIN LOTION 1 APPLIC TOPICAL (08:20)
[2023-10-05 08:50] LABS: Blood Urea Nitrogen 51 mg/dl (9-20); Calcium 9.3 mg/dl (8.4-10.2); Carbon Dioxide 19 mmol/L (22-30); Chloride 112 mmol/L (98-107); Estimated Creatinine Clearance 32 ml/min; Glucose 127 mg/dl (70-99); Potassium 5.1 mmol/L (3.5-5.1); Sodium 140 mmol/L (135-145); eGFR 27.62
--- NOTE | 2023-10-05 09:02 | W.PN.HOSP.TC ---
Addendum entered and electronically signed by Ronnell Gallegos MD 10/05/23 21:04:
Attending Addendum-
I saw and evaluated the patient. I reviewed the resident�s note and agree with findings and plan as documented in the resident�s note. No new complaints. Wants to go home. Refusing to go to SNF. 'Im not weak.' No complaint. Full 12 point ROS
reviewed and negative except as documented Exam: Gen MAD, heart RRR lungs clear abd soft LE b/l bandaged Plan:
# B/L LE cellulitis- to complete course of linezolid as OP 5 x days, VN ordered wound care as OP, ID ok with DC
# HTN- stable on nifedipine
# CKD 3b- stable @ baseline
# Hyperkalemia- s/p Lokelma 10/03- k repeat 5.1, f/u as OP
Dispo DC home with HC
Time spent coordinating care, review of plan of care with resident, review of records, med rec, consults, notes, labs, rads, d/w nursing, CM � 37 mins
Original Note:
Today's Communication/Plan
-
Discontinue Zoshn
Transition to PO linezolid on discharge
discharge to home with VN
Assessment / Plan
Assessment / Plan
Impression:
This is a 73 year old male patient with PMH of HTN, NIDDM, CKD3b, bipolar disorder and BPH who presented to ED for chronic bilateral lower extremity cellulitis with superficial wounds and purulence.
Plan:
#Bilateral lower extremity cellulitis with chronic wounds, chronic stasis dermatitis, mild purulence
-Arterial U/S: RLE: TBI measures 0.92. Multiphasic flow throughout the leg with no focal or flow-limiting stenosis appreciated. LLE:TBI minimally decreased measuring 0.66. Multiphasic flow seen within the common femoral through popliteal arteries no
focal stenosis appreciated.
-Venous ultrasound negative
-Discontinued Cefazolin
-Countinue wound care
-WBC count trending down
-superficial wound culture due to positive MRSA screen, and wound culture with polymicrobial organisms: Group A Strep, MRSA, Klebsiella, GNR
-Discontinued Zosyn as per ID
-Continue Linezolid and transition to PO upon discharge to continue course for another 5 days.
-monitor CBC
#Essential hypertension.
-Continue nifedipine. In review of medical records losartan and chlorthalidone has been discontinued over recent admission 08/08.
-BP stable
#History of CAD with stents
-PAD
-Continue aspirin
-Continue statin
#Type 2 diabetes
-Hemoglobin A1c 6.5
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
-Basal bolus protocol low
-Monitor blood glucose
#CKD stage IIIb with baseline creatinine 2.5�2.8.
-Chronic metabolic acidosis.
-Creatinine today was 2.4
-potassium 5.1 today
-continue PO sodium bicarb
-monitor bmp
#BPH.
-Continue Flomax.
#Chronic pain
-continue Neurontin
#Bipolar disorder
-Previously on aripiprazole, carbamazepine
-will hold carbamazepine upon discharge and to restart it after finishing linezolid course
-Continue Abilify
DVT ppx: Hep subcut Q12
code: full
Anticipated Discharge: Within 24 hours
Subjective/Interval History
-
Date of Service: October 05, 2023
Pt says he feels better and does not have any pain in his legs.
Objective Data
-
Labs:
Laboratory Results
10/05/23
07:03
Sodium 140
Potassium 5.1
Chloride 112 H
Carbon Dioxide 19 L
BUN 51 H
Creatinine 2.4 H
Glucose 127 H
Calcium 9.3
Vital Signs:
Vital Signs
Temp Pulse Resp BP Pulse Ox
97.4 F 84 20 137/73 97
10/05/23 07:57 10/05/23 08:10 10/05/23 07:57 10/05/23 08:10 10/05/23 07:57
I&O
10/04/23 10/05/23 10/06/23
06:59 06:59 06:59
Intake Total 2920 / 2920 1590 / 1590
Balance 2920 / 2920 1590 / 1590
Review of Systems
-
History Source: Patient
All other systems: Reviewed and negative
Physical Exam
-
General: Well Developed
HEENT: Normocephalic
Respiratory: Clear to Auscultation
Cardiac: Regular Rhythm
GI: Soft and Nontender
Musculoskeletal: No Edema and Other (Both legs wrapped below the knee with Ac wrap's/left knee TKA scar)
Neuro: Awake, Alert, Oriented and AO x 3
[2023-10-05 09:46] LABS: % Basophils 0.5 % (0-2); % Eosinophils 3.8 % (0-6); % Immature Granulocytes 0.3 % (0-0.5); % Lymphocytes 13.8 % (20.5-51.1); % Monocytes 5.9 % (1.7-9.3); % Neutrophils 75.7 % (42.2-75.2); Absolute Eosinophils 0.3 10^3/uL (0-0.7); Absolute Lymphocytes 1.2 10^3/uL (1.2-3.4); Absolute Monocytes 0.5 10^3/uL (0.1-0.6); Absolute Neutrophils 6.6 10^3/uL (1.4-6.5); Hematocrit 28.9 % (39.0-52.0); Mean Corp Hgb Conc. 31.1 g/dL (33.0-37.0); Mean Corpuscular Hgb 27.6 pg (27.0-31.0); Mean Corpuscular Volume 88.7 fL (80.0-94.0); Mean Platelet Volume 9.8 fL (7.4-10.4); Nucleated Red Blood Cells % 0 % (-); Platelet Count 379 10^3/uL (130-400); Red Blood Cell Count 3.26 10^6/uL (4.70-6.10); Red Cell Dist. Width 14.6 % (11.5-14.5); White Blood Cell Count 8.7 10^3/uL (4.8-10.8)
--- NOTE | 2023-10-05 09:48 | W.PN.ID1 ---
Date of Service
Date of Service: October 05, 2023
Today's Communication
Continue linezolid 600mg po bid through 10/10/23
Can dc home from ID standpoint
Assessment / Plan
# LLE cellulitis resolving
# Venous stasis ulcers,, improved
# Leukocytosis resolved
# DM, A1c 6.5
-Superficial wound cx with polymicrobial organisms: Group A Strep, MRSA, Klebsiella, ESBL-E. coli (organisms may not reflect true pathogens)
-Can dc Zosyn
- Continue linezolid 600mg po bid through 10/10/23 to cover MRSA and Group A step.
(Avoiding Bactrim due to CKD and borderline hyperkalemia)
-Continue wound care.
-Continue compression.
- Can dc home from ID standpoint
#Additional Past Medical History:
DM2
Neuropathy
HTN
CAD/stent
CKD3b
PVD
gout
venous stasis
bipolar disorder
BPH
Ambulatory dysfunction
Left proximal humerus fracture ORIF (08/04/23)
Left small finger proximal phalanx fracture closed reduction, percutaneous pinning (08/04/23)
Left femur fracture ORIF
Left TKR
Chief Complaint
-: Cellulitis
Subjective / Review of Systems
Leg feels much improved.
Vital Signs / Physical Exam
Vital Signs
Vital Signs
Temp Pulse Resp BP Pulse Ox
97.4 F 84 20 137/73 97
10/05/23 07:57 10/05/23 08:10 10/05/23 07:57 10/05/23 08:10 10/05/23 07:57
Physical Exam
Constitutional: No Acute Distress and Comfortable
Extremities: Erythema (LLE: erythema decreased) and Venous Insufficiency (venous stasis changes); Negative Edema
Wound: Other (Shallow wounds decreased drainage. posterior calf wound now with scant yellow drainage)
Neurological: AO x 3
Objective Data
Lab Data
Lab Results
10/05/23 07:03
Estimated Creat Clear 32 ml/min 10/05/23 07:03
Lactic Acid Cancelled 09/29/23 06:15
Total Bilirubin 0.3 mg/dl (0.2-1.3) 09/30/23 07:43
AST 20 U/L (17-59) 09/30/23 07:43
ALT 11 U/L (0-50) 09/30/23 07:43
Alkaline Phosphatase 131 U/L (38-126) H 09/30/23 07:43
Most recent labs reviewed.
Micro Results:
09/29/23 02:30 Blood Culture - Final
Blood/Venous No Growth - Final Report
09/29/23 02:22 Blood Culture - Final
Blood/Venous No Growth - Final Report
09/29/23 03:26 Wound Culture - Final
Leg - Left Klebsiella oxytoca
Escherichia coli - ESBL
Staph aureus MRSA
Streptococcus pyogenes
Gram Stain - Final
09/29/23 12:30 MRSA Screen - Final
Nose Staph aureus MRSA
[2023-10-05 11:47] LABS: Glucose - Point of Care 118 mg/dl (70-99)
--- NOTE | 2023-10-05 14:15 | CM ---
Patient has been medically cleared for discharge to home with [facility] VN and PT services. Patient has arranged for transport home.
[facility] FAX # [phone]
[2023-10-05 15:12] VITALS: BP 164/74
== END 2023-10-05 16:36 | disposition home health service (06) | DRG 603 ==
LOC: 2 NORTH 05:53
PROVIDERS: Internal Medicine; Student in an Organized Health Care Education/Training Program; ADMITTING PHYSICIAN Internal Medicine; ATTENDING PHYSICIAN Family Medicine; CONSULT PHYSICIAN Internal Medicine Infectious Disease; EMERGENCY PHYSICIAN Emergency Medicine; FAMILY PHYSICIAN Internal Medicine
DX: L03.115 Cellulitis of right lower limb (principal); E87.22 Chronic metabolic acidosis; L03.116 Cellulitis of left lower limb; N18.32 Chronic kidney disease, stage 3b; I12.9 Hypertensive chronic kidney disease with stage 1 through stage 4 chronic kidney disease, or unspecified chronic kidney disease; E11.22 Type 2 diabetes mellitus with diabetic chronic kidney disease; F31.9 Bipolar disorder, unspecified; N40.0 Benign prostatic hyperplasia without lower urinary tract symptoms; H40.9 Unspecified glaucoma; E66.01 Morbid (severe) obesity due to excess calories; N18.30 Chronic kidney disease, stage 3 unspecified; E87.5 Hyperkalemia
CPT/HCPCS: 80048; 80053; 81003; 82962; 83036; 83605; 85025; 85027; 87040; 87070; 87077; 87147; 87186; 87205; 93922; 93925; 93970; 96365; 96366; 97116; 97163; 97530; 99285

== ENCOUNTER 2023-10-07 13:55 | Emergency (ER) | payer MEDICARE, SELFPAY ==
[2023-10-07 13:57] VITALS: BMI 33.2
[2023-10-07 14:00] VITALS: BP 171/85
--- NOTE | 2023-10-07 14:14 | ED.GENMED ---
History of Present Illness
<Sary Lemus PA-C - Last Filed: 10/07/23 17:33>
General
Chief Complaint: Skin Problem
Source: patient
Exam Limitations: none
Time Seen by Provider: 10/07/23 14:04
Nursing documentation reviewed up to this point in time: agreed with
Travel History
Have you had any contact with someone who has COVID-19?: No
Do you have any symptoms of coronavirus? Fever > 100 degrees, chills, cough, shortness of breath, sore throat, loss of taste or smell, muscle aches, or headache?: No
History of Present Illness
History of Present Illness:
73-year-old male with a history of hyperlipidemia, hypertension, CKD, diabetes, diabetic neuropathy, recurrent cellulitis presenting to emergency department today with concerns of lack of home nursing care. Patient states that he was discharged
from the hospital 2 days ago for bilateral cellulitis on the legs and states that he states he discharged with home nursing care, however he was never seen by his nurses and he states that he cannot get a hold of by [facility] nursing care. He
also states that he has not been able to get his antibiotic as an outpatient. He has a history on linezolid. Patient states that he also never received discharge instructions or nursing instructions. Patient denies any fevers, chills, abdominal
pain, nausea, vomiting.
Past History
<Sary Lemus PA-C - Last Filed: 10/07/23 17:33>
Past History
ED Past Medical History: CAD, HTN, Hypercholesterolemia, NIDDM, Psychiatric, Other, Other and Other
ED Past Surgical History: Cardiac (stents) and Orthopedic (LTKR 2016)
Social History
Tobacco: Non-smoker
Alcohol: None
Drug: None
Personal:
Living: with family
Employment: Retired
Family History
Family History: Other (Father with a stroke mother with a stroke)
Review of Systems
<Sary Lemus PA-C - Last Filed: 10/07/23 17:33>
Review of Systems
All Other Systems: ROS reviewed and negative except as documented in HPI and ROS
Phy Exam
<Sary Lemus PA-C - Last Filed: 10/07/23 17:33>
Physical Exam
Physical Exam:
Vitals: VSS, patient is afebrile
General: Patient is well appearing and in no acute distress; non-toxic
Skin: Warm and dry. Bilateral lower extremity erythema, healing cellulitis, no draining ulcers or weeping.
Head: Normocephalic, atraumatic
Eyes: Sclera non-icteric. EOMs intact.
Cardiac: Regular rate
Peripheral Vascular: Bilateral lower extremity edema
Pulm: Normal respiratory effort
Abdomen: No abdominal tenderness
Musculoskeletal: Mild tenderness palpation bilateral lower extremities
Neuro: CN II-XII intact, no focal neurologic deficits.
Psychiatric: Angry affect.
Course
<Sary Lemus PA-C - Last Filed: 10/07/23 17:33>
Orders/Labs/Results
Orders:
Orders
10/07/23 14:33
Case Management Consult ONCE
Case Management Consult: VN/Home Care
10/07/23 15:39
Acetaminophen [Tylenol] 1,000 mg PO NOW STA
10/07/23 15:46
Linezolid [Zyvox] 600 mg PO NOW STA
Vital Signs
Initial and Last Documented VS:
Initial Vital Signs
Temp Pulse Resp BP Pulse Ox
98.4 F 86 18 171/85 98
10/07/23 14:00 10/07/23 14:00 10/07/23 14:00 10/07/23 14:00 10/07/23 14:00
Last Documented Vital Signs
Temp Pulse Resp BP Pulse Ox
98.4 F 86 18 171/85 98
10/07/23 14:00 10/07/23 14:00 10/07/23 14:00 10/07/23 14:00 10/07/23 14:00
<Casey Carmen MD - Last Filed: 10/07/23 15:50>
Orders/Labs/Results
Orders:
Orders
10/07/23 14:33
Case Management Consult ONCE
Case Management Consult: VN/Home Care
10/07/23 15:39
Acetaminophen [Tylenol] 1,000 mg PO NOW STA
10/07/23 15:46
Linezolid [Zyvox] 600 mg PO NOW STA
Vital Signs
Initial and Last Documented VS:
Initial Vital Signs
Temp Pulse Resp BP Pulse Ox
98.4 F 86 18 171/85 98
10/07/23 14:00 10/07/23 14:00 10/07/23 14:00 10/07/23 14:00 10/07/23 14:00
Last Documented Vital Signs
Temp Pulse Resp BP Pulse Ox
98.4 F 86 18 171/85 98
10/07/23 14:00 10/07/23 14:00 10/07/23 14:00 10/07/23 14:00 10/07/23 14:00
<Sary Lemus PA-C - Last Filed: 10/07/23 17:33>
MDM/Problems Addressed
Differential Diagnosis Includes:
Patient presents today for help with post discharge planning and care. No new medical complaints at this time.
MDM/Problems Addressed:
Healing cellulitis, peripheral neuropathy, nursing follow-up
Chronic conditions affecting care:
Chronic kidney disease, diabetes, hypertension, hyperlipidemia, recurrent cellulitis
Acute Exacerbation and/or Progression of Chronic Illness:
recurrent cellulitis, diabetes
<Sary Lemus PA-C - Last Filed: 10/07/23 17:33>
*Critical Care Note
Total Time (30-74mins, 75-104mins- exclusive of procedures): Not Applicable
<Sary Lemus PA-C - Last Filed: 10/07/23 17:33>
Patient Management
Escalation/DeEscalation of care consider admission/obs:
73-year-old male with a history of hyperlipidemia, hypertension, CKD, diabetes, diabetic neuropathy, recurrent cellulitis presenting to emergency department today with concerns of lack of home nursing care. Case management was consulted. Case
management help patient get set up with [facility] who will come to patient's apartment to help with home care in 2 days. Patient was also given a coupon for his linezolid, patient will worm picker this medication and finish his course.
Patient aware of wound care instructions. Patient stable for discharge.
<Sary Lemus PA-C - Last Filed: 10/07/23 17:33>
Update Note
Update Note:
3:32 pm--Spoke with case management regarding plan of care
ED Attending Note
<Sary Lemus PA-C - Last Filed: 10/07/23 17:33>
-
Portions of this chart may have been created with voice recognition software.� Occasional wrong word or��sound alike� substitutions may have occurred due to the inherent limitations of voice recognition software.
<Casey Carmen MD - Last Filed: 10/07/23 15:50>
ED Attending Note
Patient seen and examined by attending physician: Yes
ED Attending Note:
HPI: 73-year-old male with a past medical history as documented who was admitted to this hospital 09/28 until 10/04 for bilateral leg wounds and lower extremity cellulitis who presents to the emergency room seeking help with outpatient follow-up plan
after his recent discharge. Patient was treated with antibiotics ultimately transition to linezolid p.o. He was discharged with a plan for 5 additional days of linezolid 600 mg twice daily and outpatient visiting nurse for wound care. Patient
says that wound care nurse has not been available and he had difficulty picking up his prescription and so he returned back to the emergency room for assistance.
ROS: Negative for fever or chills, chest pain abdominal pain, shortness of breath; positive for continued leg pain
Physical exam:
General: Well appearing and non-toxic
HEENT: protecting airway
Neck: appears supple
CV: No evidence of cyanosis
Resp: No accessory muscle use
Abd: Non-distended
Extremities: No deformities
Neuro: Alert
Psych: Normal affect
Skin: Patient has continued erythema in his legs bilaterally with significant edema; he has no significant weeping or drainage on exam today
Differential diagnosis: Cellulitis
Medical decision makin-year-old male with recent admission as above returns to the emergency room for assistance because previously established plan for visiting nurse and wound care fell through and he has been unable to get his antibiotics
from the pharmacy. He is hypertensive but otherwise normal vitals. Exam as above. He has not had his antibiotics since discharge will provide dose of linezolid here p.o. Contacted casework manager to coordinate with visiting nurse and to help
arrange for pickup of patient's antibiotic. Continue to monitor while here in the emergency room.
Chronic conditions affecting care: Hypertension, diabetes
Acute exacerbation or progression of chronic illness: Acutely hypertensive with no signs or symptoms of hypertensive emergency�no indication for emergent antihypertensive therapy at present
History source: Patient, records
Data reviewed: Prior hospital records, discharge summary, labs
Medications/testing considered: N/A
Social determinants of health: Poor outpatient follow-up plan
Discussion with other providers: shipping manager
Discharge Plan
Departure
Patient Disposition: Home (Routine Discharge)
Date of Disposition: 10/07/23
Time of Disposition: 16:13
Patient with high blood pressure during this ER visit?: Yes
Condition: Good
Discharge Problem:
Encounter for medical screening examination
Instructions: Cellulitis (Skin Infection), Adult (DC), [facility], BLOOD PRESSURE
Prescriptions:
New
linezolid 600 mg tablet
600 mg PO BID Qty: 10 0RF
No Action
atorvastatin 80 MG tablet
80 mg PO HS
tamsulosin 0.4 MG capsule
0.4 mg PO HS
cyanocobalamin (vitamin B-12) 1,000 MCG tablet
1,000 mcg PO DAILY
sodium bicarbonate 650 MG tablet
650 mg PO DAILY
loratadine 10 MG tablet
10 mg PO DAILY
aripiprazole 5 MG tablet
10 mg PO HS
travoprost 0.004 % Drops
1 drp BOTH EYES QPM
aspirin 81 mg Tablet,Delayed Release (Dr/Ec)
81 mg PO DAILY
white petrolatum-mineral oil Cream
1 applic TOPICAL DAILY
Simbrinza 1-0.2 % Drops,Suspension
1 drp BOTH EYES BID
turmeric 400 mg Capsule
400 mg PO BID
losartan 25 mg Tablet
25 mg PO DAILY
melatonin 3 mg Tablet
6 mg PO HS
chlorthalidone 25 mg Tablet
25 mg PO DAILY
gabapentin 100 mg Capsule
100 mg PO TID
nifedipine 60 mg Tablet Extended Release
60 mg PO AMHS
carbamazepine 300 mg Capsule, Er Multiphase 12 Hr
300 mg PO BID
Hold Instructions: Resume on 10/12/23.
ferrous sulfate [Feosol] 325 MG tablet
325 mg PO DAILY
linezolid 600 mg Tablet
600 mg PO BID 5 Days Qty: 10 0RF
Referrals:
Ines Carlos MD [Family Provider] -
Activity Restrictions/Additional Instructions:
Please refer to wound care instructions below:
L arm: clean with soap and water, smear of honey gel, adaptic and silicone foam change daily and prn drainage
R leg: clean with soap and water, silicone foam change q other day and prn drainage
L leg: clean with soap and water, adaptic, abd pad and miroslava daily and prn drainage
-Moisturize legs daily with mineral oil ebony wraps daily knee high can remove at bedtime leg elevation when sitting
[facility] nursing will come to your apartment this week to help with home wound care.
Follow up at wound care center call for an appointment.
Please continue the Linezolid as directed by infectious disease: 600 mg tablets orally twice daily for 5 days
Interventions
Interventions:
*Risk Screen - Suicide Last Done: 10/07/23 14:33
*General Assessment Last Done: 10/07/23 14:33
*Neglect/Abuse Screening Last Done: 10/07/23 14:33
ED- Fall Risk Assessment Last Done: 10/07/23 16:26
*ED COVID-19 Vaccine History Last Done: 10/07/23 14:00
*Nursing Disposition Last Done: 10/07/23 16:26
ED-Skin Assessment Last Done: 10/07/23 14:33
Discharge Date and Time
Discharge Date/Time: 10/07/23 16:27
Print Language: TRISTANIAN
--- NOTE | 2023-10-07 14:42 | CM ---
Addendum entered by Kamille Brooke RN 10/07/23 15:35:
Katy spoke with Nya from [facility]. Plan to have a nurse visit on 10/08. Patient spoke with Nya from [facility] via speaker phone. Patient is agreeable to plan.
CM confirmed that patient's medications have been sent to [facility]. Patient made aware.
Plan to have nursing redress patient's wounds.
KATY updated ER MD and ED PA.
Original Note:
KATY spoke with patient who stated that he was just discharged to the care of [facility]. He stated that they needed to 'switch offices' and never called patient back. CM left message for Nya at [facility].
[2023-10-07] MEDS: ZYVOX 600 MG PO (15:57)
[2023-10-07] MEDS: TYLENOL 1000 MG PO (15:58)
--- NOTE | 2023-10-07 16:02 | CM ---
Addendum entered by Kamille Brooke RN 10/07/23 16:13:
CM spoke with [facility] to refer patient for evaluation and further services.
Original Note:
KATY confirmed that patient's medications were sent to [facility] # [id number]. Patient's Zyvox is not covered by patient's plan. CM provided patient with written address of the [facility] that his medications were sent to. Patient was further given a
good RX coupon for the remainder of his Zyvox prescription for $24.
Katy updated [facility] that wound dressings were changed. KATY will update [facility] with discharge notes from ED.
KATY updated Nya Quintero RN at [facility] with plan.
== END 2023-10-07 16:27 | disposition home or self-care (01) ==
LOC: EMR 13:55
PROVIDERS: EMERGENCY PHYSICIAN Emergency Medicine; FAMILY PHYSICIAN Internal Medicine
DX: Z00.00 Encounter for general adult medical examination without abnormal findings (principal); Z76.0 Encounter for issue of repeat prescription; E78.00 Pure hypercholesterolemia, unspecified; I10 Essential (primary) hypertension; N18.9 Chronic kidney disease, unspecified; E11.22 Type 2 diabetes mellitus with diabetic chronic kidney disease; I12.9 Hypertensive chronic kidney disease with stage 1 through stage 4 chronic kidney disease, or unspecified chronic kidney disease; E11.40 Type 2 diabetes mellitus with diabetic neuropathy, unspecified
CPT/HCPCS: 99283

== ENCOUNTER 2023-11-01 09:28 | Emergency (ER) | payer MEDICARE, SELFPAY ==
[2023-11-01 09:38] VITALS: BP 164/87
[2023-11-01] MEDS: TYLENOL 650 MG PO (10:10)
--- NOTE | 2023-11-01 10:54 | ED.GENMED ---
History of Present Illness
General
Chief Complaint: Fall
Time Seen by Provider: 11/01/23 09:39
Travel History
Have you had any contact with someone who has COVID-19?: No
Do you have any symptoms of coronavirus? Fever > 100 degrees, chills, cough, shortness of breath, sore throat, loss of taste or smell, muscle aches, or headache?: No
History of Present Illness
History of Present Illness:
73-year-old male presents to the emergency department for evaluation of low back pain after a ground-level fall. States he was attempting to move furniture, the furniture was unstable and fell towards him knocking him to the ground. He fell and
landed on his buttock. Denies a head strike or loss of consciousness. Denies any lower extremity paresthesias or radiculopathy. He is requesting only acetaminophen for pain
Past History
Past History
ED Past Medical History: CAD, HTN, Hypercholesterolemia, NIDDM, Psychiatric, Other, Other and Other
ED Past Surgical History: Cardiac (stents) and Orthopedic (LTKR 2016)
Social History
Tobacco: Non-smoker
Alcohol: None
Drug: None
Personal:
Living: with family
Employment: Retired
Family History
Family History: Other (Father with a stroke mother with a stroke)
Review of Systems
Review of Systems
Allergies reviewed?: Yes
All Other Systems: ROS reviewed and negative except as documented in HPI and ROS
Phy Exam
Physical Exam
Physical Exam:
GEN: Well appearing, NAD, WDWN
HEENT: Oral mucosa moist, no scleral icterus
Cardiac: Regular rate
Lung: No respiratory distress, no tachypnea
MSK: No gross deformity or injuries. No focal midline lumbar spine tenderness, minimal sacral/coccygeal tenderness. Bilateral hip passive range of motion is normal without pain or crepitus. Straight leg raise is negative bilaterally
Skin: Good color, no pallor or jaundice, no rashes
Neuro: AO x3, moves all extremities freely
Psych: Calm, cooperative
Course
Orders/Labs/Results
Orders:
Orders
11/01/23 09:57
Acetaminophen [Tylenol] 650 mg PO NOW STA
CR Lumbar Spine Comp Min 4 Vw* Urgent
Comment:
Reason For Exam: fall, low back pain
Vital Signs
Initial and Last Documented VS:
Initial Vital Signs
Temp Pulse Resp BP Pulse Ox
98.3 F 100 16 164/87 100
11/01/23 09:38 11/01/23 09:38 11/01/23 09:38 11/01/23 09:38 11/01/23 09:38
Last Documented Vital Signs
Temp Pulse Resp BP Pulse Ox
98.3 F 100 16 164/87 100
11/01/23 09:38 11/01/23 09:38 11/01/23 09:38 11/01/23 09:38 11/01/23 09:38
MDM/Problems Addressed
MDM/Problems Addressed:
X-rays of the lumbar spine independently interpreted by me are negative for acute osseous abnormality, significant degenerative disease noted. Supportive care discussed with the patient
*Critical Care Note
Total Time (30-74mins, 75-104mins- exclusive of procedures): Not Applicable
ED Attending Note
-
Portions of this chart may have been created with voice recognition software.� Occasional wrong word or��sound alike� substitutions may have occurred due to the inherent limitations of voice recognition software.
Discharge Plan
Departure
Patient Disposition: Home (Routine Discharge)
Date of Disposition: 11/01/23
Time of Disposition: 10:59
Patient with high blood pressure during this ER visit?: No
Discharge Problem:
Acute lumbar myofascial strain, Fall from ground level
Instructions: Back Pain
Prescriptions:
No Action
atorvastatin 80 MG tablet
80 mg PO HS
tamsulosin 0.4 MG capsule
0.4 mg PO HS
cyanocobalamin (vitamin B-12) 1,000 MCG tablet
1,000 mcg PO DAILY
sodium bicarbonate 650 MG tablet
650 mg PO DAILY
loratadine 10 MG tablet
10 mg PO DAILY
aripiprazole 5 MG tablet
10 mg PO HS
travoprost 0.004 % Drops
1 drp BOTH EYES QPM
aspirin 81 mg Tablet,Delayed Release (Dr/Ec)
81 mg PO DAILY
white petrolatum-mineral oil Cream
1 applic TOPICAL DAILY
Simbrinza 1-0.2 % Drops,Suspension
1 drp BOTH EYES BID
turmeric 400 mg Capsule
400 mg PO BID
losartan 25 mg Tablet
25 mg PO DAILY
melatonin 3 mg Tablet
6 mg PO HS
chlorthalidone 25 mg Tablet
25 mg PO DAILY
gabapentin 100 mg Capsule
100 mg PO TID
nifedipine 60 mg Tablet Extended Release
60 mg PO AMHS
carbamazepine 300 mg Capsule, Er Multiphase 12 Hr
300 mg PO BID
Hold Instructions: Resume on 10/12/23.
ferrous sulfate [Feosol] 325 MG tablet
325 mg PO DAILY
linezolid 600 mg Tablet
600 mg PO BID 5 Days Qty: 10 0RF
linezolid 600 mg tablet
600 mg PO BID Qty: 10 0RF
Activity Restrictions/Additional Instructions:
Take 650mg acetaminophen every 6 hours for pain control
Interventions
Interventions:
*Risk Screen - Suicide Last Done: 11/01/23 09:38
*General Assessment Last Done: 11/01/23 09:38
*Neglect/Abuse Screening Last Done: 11/01/23 09:38
Discharge Date and Time
Print Language: COLOMBIAN
== END 2023-11-01 11:51 | disposition home or self-care (01) ==
LOC: EMR 09:28
PROVIDERS: EMERGENCY PHYSICIAN Emergency Medicine
DX: S39.012A Strain of muscle, fascia and tendon of lower back, initial encounter (principal); W22.8XXA Striking against or struck by other objects, initial encounter
CPT/HCPCS: 99283; 72110

== ENCOUNTER 2023-11-13 15:11 | Emergency (ER) | payer MEDICARE, SELFPAY ==
[2023-11-13] VITALS (7 sets, daily range): BP systolic 117–186; BP diastolic 68–97; BMI 29.3
--- NOTE | 2023-11-13 18:11 | CM ---
CM was consulted for. Patient is well known to this CM. Patient is known to [facility]. CM updated referral to [facility] via [facility].
[2023-11-13 18:12] LABS: % Basophils 0.3 % (0-2); % Eosinophils 2.7 % (0-6); % Immature Granulocytes 0.4 % (0-0.5); % Lymphocytes 12.6 % (20.5-51.1); % Monocytes 7.3 % (1.7-9.3); % Neutrophils 76.7 % (42.2-75.2); Absolute Eosinophils 0.2 10^3/uL (0-0.7); Absolute Lymphocytes 1.1 10^3/uL (1.2-3.4); Absolute Monocytes 0.7 10^3/uL (0.1-0.6); Absolute Neutrophils 6.9 10^3/uL (1.4-6.5); Hematocrit 28.8 % (39.0-52.0); Hemoglobin 9.1 g/dL (13.0-18.0); Mean Corp Hgb Conc. 31.6 g/dL (33.0-37.0); Mean Corpuscular Hgb 27.3 pg (27.0-31.0); Mean Corpuscular Volume 86.5 fL (80.0-94.0); Mean Platelet Volume 8.6 fL (7.4-10.4); Nucleated Red Blood Cells % 0 % (-); Platelet Count 298 10^3/uL (130-400); Red Blood Cell Count 3.33 10^6/uL (4.70-6.10); Red Cell Dist. Width 15.6 % (11.5-14.5)
--- NOTE | 2023-11-13 18:32 | ED.GENMED ---
History of Present Illness
General
Chief Complaint: Sleep Disturbances
Source: patient and records
Exam Limitations: none
Time Seen by Provider: 11/13/23 16:53
Nursing documentation reviewed up to this point in time: agreed with
Travel History
Have you had any contact with someone who has COVID-19?: No
Do you have any symptoms of coronavirus? Fever > 100 degrees, chills, cough, shortness of breath, sore throat, loss of taste or smell, muscle aches, or headache?: No
History of Present Illness
History of Present Illness:
Patient is a 73-year-old male who presents to the emergency department complaining of the lack of sleeping. Patient states he feels clumsy and falls due to lack of sleep. Patient states he is watching too much television. Patient states that he
is fixated on soft porn has only placed at night. Patient's not eating well while his is in rehab is subsisting on a diet of cookies. Patient lives in an apartment by himself and his . Patient does have visiting nurses. Patient denies
fever or chills, chest pain, shortness of breath, GI symptoms. Patient states she has chronic cellulitis of his lower extremities and his legs have been weeping. This is a chronic condition for the patient according to the patient. Patient has
been following and has been evaluated in the emergency department for this falling.
Past History
Past History
ED Past Medical History: CAD, HTN, Hypercholesterolemia, NIDDM, Psychiatric, Other, Other and Other
ED Past Surgical History: Cardiac (stents) and Orthopedic (LTKR 2016)
Social History
Tobacco: Non-smoker
Alcohol: None
Drug: None
Personal:
Living: with family
Employment: Retired
Family History
Family History: Other (Father with a stroke mother with a stroke)
Review of Systems
Review of Systems
All Other Systems: ROS reviewed and negative except as documented in HPI and ROS
Constitutional: Reports fatigue; Denies fever or chills
EENT: Reports no symptoms
Respiratory: Reports no symptoms
Cardiac: Reports no symptoms
ABD/GI: Reports no symptoms
: Reports no symptoms
Musculoskeletal: Reports edema (Chronic)
Skin: Reports other (Chronic redness of his lower extremities)
Neurological: Reports no symptoms
Hematologic/Lymphatic: Reports no symptoms
Phy Exam
Physical Exam
Physical Exam:
Physical Exam
General: No apparent distress, alert and appropriate, well nourished, well hydrated
HENT: Normocephalic with old ecchymosis about the right supraorbital region but without bony tenderness or deformity, supple with no lymphadenopathy, no thyromegaly
Eyes: Clear sclera, conjuctiva without injection, extraocular muscles intact
Heart: Regular rhythm and rate. No S3, S4. No murmur. No NVD, bruit
Lungs: No respiratory distress, no stridor, lung sounds clear and equal bilaterally, chest wall symmetrical and nontender
Abdomen: Soft, nontender, BS good
Neuro: Alert and oriented x 3, CN II - XII intact, no motor focality, no cerebellar dysfunction
Skin: Chronic erythema of the lower legs bilaterally
Psychiatric: well kept. interactive and cooperative
Extremities: No cyanosis, tenderness. Chronic edema of the bilateral lower legs
Course
Orders/Labs/Results
Orders:
Orders
11/13/23 17:51
Case Management Consult ONCE
Case Management Consult: VN/Home Care
11/13/23 18:05
Complete Blood Count/With Diff Urgent
Comprehensive Metabolic Panel Urgent
TSH Reflex To Free T4 Urgent
Abnormal Lab Results
11/13/23
18:05
RBC 3.33 L 10^6/uL
(4.70-6.10)
Hgb 9.1 L g/dL
(13.0-18.0)
Hct 28.8 L %
(39.0-52.0)
MCHC 31.6 L g/dL
(33.0-37.0)
RDW 15.6 H %
(11.5-14.5)
Absolute Neuts (auto) 6.9 H 10^3/uL
(1.4-6.5)
Absolute Lymphs (auto) 1.1 L 10^3/uL
(1.2-3.4)
Absolute Monos (auto) 0.7 H 10^3/uL
(0.1-0.6)
Neutrophils % 76.7 H %
(42.2-75.2)
Lymphocytes % 12.6 L %
(20.5-51.1)
Potassium 5.7 H mmol/L
(3.5-5.1)
Chloride 108 H mmol/L
(98-107)
BUN 34 H mg/dl
(9-20)
Creatinine 2.3 H mg/dL
(0.7-1.3)
Glucose 108 H mg/dl
(70-99)
Alkaline Phosphatase 140 H U/L
(38-126)
Total Protein 6.2 L g/dl
(6.3-8.2)
Albumin 3.4 L g/dl
(3.5-5.0)
11/13/23 18:05
11/13/23 18:05
Vital Signs
Initial and Last Documented VS:
Initial Vital Signs
Temp Pulse Resp BP Pulse Ox
98.7 F 89 18 117/68 100
11/13/23 15:17 11/13/23 15:17 11/13/23 15:17 11/13/23 15:17 11/13/23 15:17
Last Documented Vital Signs
Temp Pulse Resp BP Pulse Ox
98.7 F 82 18 156/84 100
11/13/23 15:17 11/13/23 18:45 11/13/23 18:45 11/13/23 18:00 11/13/23 18:00
*Pulse Oximetry
Patient hypoxic: no
*Critical Care Note
Total Time (30-74mins, 75-104mins- exclusive of procedures): Not Applicable
Update Note
Update Note:
Patient's workup is essentially unremarkable. Believe these are chronic problems for the patient. Patient has visiting nurses already. Patient will be given a walker. Patient will be discharged.
ED Attending Note
-
Portions of this chart may have been created with voice recognition software.� Occasional wrong word or��sound alike� substitutions may have occurred due to the inherent limitations of voice recognition software.
Discharge Plan
Departure
Patient Disposition: Home (Routine Discharge)
Date of Disposition: 11/13/23
Time of Disposition: 20:24
Patient with high blood pressure during this ER visit?: Yes
Condition: Fair
Covid-19: Not Applicable
Discharge Problem:
Insomnia
Instructions: Insomnia (DC), BLOOD PRESSURE
Prescriptions:
New
hydroxyzine pamoate [Vistaril] 25 mg capsule
25 mg PO HS Qty: 14 0RF
No Action
atorvastatin 80 MG tablet
80 mg PO HS
tamsulosin 0.4 MG capsule
0.4 mg PO HS
cyanocobalamin (vitamin B-12) 1,000 MCG tablet
1,000 mcg PO DAILY
sodium bicarbonate 650 MG tablet
650 mg PO DAILY
loratadine 10 MG tablet
10 mg PO DAILY
aripiprazole 5 MG tablet
10 mg PO HS
travoprost 0.004 % Drops
1 drp BOTH EYES QPM
aspirin 81 mg Tablet,Delayed Release (Dr/Ec)
81 mg PO DAILY
white petrolatum-mineral oil Cream
1 applic TOPICAL DAILY
Simbrinza 1-0.2 % Drops,Suspension
1 drp BOTH EYES BID
turmeric 400 mg Capsule
400 mg PO BID
losartan 25 mg Tablet
25 mg PO DAILY
melatonin 3 mg Tablet
6 mg PO HS
chlorthalidone 25 mg Tablet
25 mg PO DAILY
gabapentin 100 mg Capsule
100 mg PO TID
nifedipine 60 mg Tablet Extended Release
60 mg PO AMHS
carbamazepine 300 mg Capsule, Er Multiphase 12 Hr
300 mg PO BID
Hold Instructions: Resume on 10/12/23.
ferrous sulfate [Feosol] 325 MG tablet
325 mg PO DAILY
linezolid 600 mg Tablet
600 mg PO BID 5 Days Qty: 10 0RF
linezolid 600 mg tablet
600 mg PO BID Qty: 10 0RF
Referrals:
Ines Carlos MD [Family Provider] - Follow up in 5-7 days
Activity Restrictions/Additional Instructions:
Continue present medications and therapy. Stop watching pornography and get a regular sleep cycle.
Interventions
Interventions:
*Risk Screen - Suicide Last Done: 11/13/23 17:43
*General Assessment Last Done: 11/13/23 17:43
*Neglect/Abuse Screening Last Done: 11/13/23 17:43
ED- Fall Risk Assessment Last Done: 11/13/23 17:43
*ED COVID-19 Vaccine History Last Done: 11/13/23 17:43
ED-Suicide Risk Assessment Last Done: 11/13/23 17:47
ED-Musculoskeletal Assessment Last Done: 11/13/23 17:43
ED- Neurological Assessment Last Done: 11/13/23 17:43
ED-Psychological Assessment Last Done: 11/13/23 17:43
ED-Skin Assessment Last Done: 11/13/23 17:43
Discharge Date and Time
Print Language: PAKISTANI
[2023-11-13 18:38] LABS: ALT (SGPT) 17 U/L (0-50); AST (SGOT) 27 U/L (17-59); Albumin 3.4 g/dl (3.5-5.0); Alkaline Phosphatase 140 U/L (38-126); Blood Urea Nitrogen 34 mg/dl (9-20); Calcium 8.9 mg/dl (8.4-10.2); Carbon Dioxide 28 mmol/L (22-30); Chloride 108 mmol/L (98-107); Estimated Creatinine Clearance 33 ml/min; Glucose 108 mg/dl (70-99); Potassium 5.7 mmol/L (3.5-5.1); Sodium 141 mmol/L (135-145); Total Bilirubin 0.2 mg/dl (0.2-1.3); Total Protein 6.2 g/dl (6.3-8.2); eGFR 29.07
[2023-11-13 19:08] LABS: TSH Reflex To Free T4 1.18 uIU/ml (0.47-4.68)
[2023-11-14] MEDS: ATIVAN 0.5 MG IV (03:49)
[2023-11-14 06:02] VITALS: BP 169/90
== END 2023-11-14 07:58 | disposition home or self-care (01) ==
LOC: EMR 15:11
PROVIDERS: EMERGENCY PHYSICIAN Emergency Medicine; FAMILY PHYSICIAN Internal Medicine
DX: G47.00 Insomnia, unspecified (principal); L03.115 Cellulitis of right lower limb; L03.116 Cellulitis of left lower limb; I25.10 Atherosclerotic heart disease of native coronary artery without angina pectoris; I10 Essential (primary) hypertension; E78.00 Pure hypercholesterolemia, unspecified; E11.9 Type 2 diabetes mellitus without complications; Z82.3 Family history of stroke; Z95.5 Presence of coronary angioplasty implant and graft
CPT/HCPCS: 99283; 96374; 80053; 84443; 85025

== ENCOUNTER 2023-11-20 18:24 | Emergency (ER) | payer MEDICARE, SELFPAY ==
[2023-11-20 18:27] VITALS: BP 151/66
[2023-11-20 19:45] VITALS: BP 139/59; BMI 32.4
--- NOTE | 2023-11-20 19:48 | EDRN ---
Pt sleeping when this RN entered room, woke to voice easily. Pt says he is here because he saw his [facility] today and 'they think I'm too manic.' When asked if pt feels manic, pt said 'I think I'm determined.' Pt then explained his has been
in rehab for couple months and will be coming home soon so has been cleaning up the apartment. Pt went in to detail about what and how he cleaned and storage units, 27 gallon storage containers. Pt with rambling speech, easily redirected. Pt
denies SI/HI/AH/VH. Pt has been taking his medications 'sometimes' stating when he is running around in the afternoon, gets lunch at [facility], he does not take his afternoon medications. Pt says 'I know I should, but I don't.' Pt denies pain,
says he has been falling a lot recently. Pt uses a cane. Attempted to do pt's med rec with him however he fell asleep multiple times and had to be woke up to continue. When got to melatonin, pt was little upset thinking he should not be taking it
because 'this is why I'm so sleepy like this.' Pt asked that 'they don't give it to me any more.' Pt says when his was home, she would give him morning medications and he would do the nighttime medications. Pt denies cp, sob, abd pain, n/v,
fever/chills/cough.
--- NOTE | 2023-11-20 23:55 | EDRN ---
This RN woke pt about 10 minutes ago to inform him he is discharged and can go home. Pt lying on stretcher with eyes closed talking about getting [employer] coffee. Informed pt it is closed because it is close to midnight. Then pt said he could go
to [facility] for coffee. Pt says he drove here. Pt talking about staying here to sleep until morning. Informed pt he is discharged and can go home and sleep in his own bed to which pt laughed. Pt with rambling speech. EDT dressed pt's LLE wound per
Dr Carmen.
--- NOTE | 2023-11-21 00:17 | EDRN ---
Discussed with charge nurse, pt can stay in that room until it is needed. Attempted to explain this to pt and he interrupted saying he is putting onhis shoes, then he is going to the bathroom then he is going to wash his hands. He will stop at
[facility]. Pt then asked if [employer] is open. Informed pt it is closed permanently and that it is after midnight so restaurants are closed unless there is a 24 hour diner. Pt said that is too far. This RN told pt if he is going to [facility], he could
get food there if he is hungry. Pt continued talking about the [employer]. Pt informed he can take as long as he wants and can leave when he feels ready to do so.
--- NOTE | 2023-11-21 03:00 | ED.GENMED ---
History of Present Illness
General
Chief Complaint: Psychiatric Problem
Source: patient
Exam Limitations: none
Time Seen by Provider: 11/20/23 18:37
Nursing documentation reviewed up to this point in time: agreed with
Travel History
Have you had any contact with someone who has COVID-19?: No
Do you have any symptoms of coronavirus? Fever > 100 degrees, chills, cough, shortness of breath, sore throat, loss of taste or smell, muscle aches, or headache?: No
History of Present Illness
History of Present Illness:
73-year-old male with history as documented presents to the emergency room for evaluation of 'they think I am crazy.' Patient says that he follows with Dr. Jacome as an outpatient psychiatrist--he follows through the [facility]. He says he is on multiple
medications for bipolar disorder. He says that it has been about a week since he had a good night sleep. He says that he thinks it is in part due to only intermittent compliance with his normal medications but he also believes that it is a
behavioral issue that keeps him awake as well�he says that he stays up late watching YouTube videos 'of girls in [place], you know: soft core porn.' He says that he spoke with his psychiatrist on the phone and that she recommended he come to the
emergency room to be assessed. He denies being suicidal and does not have any homicidal ideation. He denies any hallucinations. He denies any drug or alcohol use. He denies any physical complaints�the only thing he notes is that he has chronic
edema and a chronic wound on the left leg which is not acutely bothering him. I did try to reach out multiple times to the patient's psychiatrist and we had difficulty reaching her; I was able to speak with a nurse on-call for the [facility] who was able
to review office note. According to the nurse I spoke with patient's psychiatrist note that he is having sleep disturbances, grandiose ideas, labile affect and there was concern for kelsey and he is not taking his meds. According to the nurse I
spoke with patient's psychiatrist noted that he is not meeting any 302 criteria but may benefit from emergency assessment. Apparently initially was recommended to go to [place] via EMS and instead patient drove himself to [place].
Past History
Past History
ED Past Medical History: CAD, HTN, Hypercholesterolemia, NIDDM, Psychiatric, Other, Other and Other
ED Past Surgical History: Cardiac (stents) and Orthopedic (LTKR 2016)
Social History
Tobacco: Non-smoker
Alcohol: None
Drug: None
Personal:
Living: with family
Employment: Retired
Family History
Family History: Other (Father with a stroke mother with a stroke)
Review of Systems
Review of Systems
All Other Systems: ROS reviewed and negative except as documented in HPI and ROS
Constitutional: Denies fever
Respiratory: Denies cough or trouble breathing
Cardiac: Denies chest pain or palpitations
ABD/GI: Denies abdominal pain, nausea or vomiting
: Denies flank pain
Musculoskeletal: Reports edema (Chronic); Denies neck pain or back pain
Skin: Reports other (Chronic leg wound)
Neurological: Denies headache
Psychiatric: Reports other (Sleep disturbance); Denies anxiety, suicidal or hallucinations
Phy Exam
Physical Exam
Physical Exam:
General: Awake, alert, oriented x3; no acute distress
Head: Normocephalic, atraumatic
Eyes: Conjunctiva normal, EOMI, pupils equal round reactive to light bilaterally
Throat: Airway intact, handling secretions
Neck: Trachea midline, supple without meningismus
Lungs: Clear to auscultation bilaterally, no wheezing, rales, rhonchi
Heart: Regular rate and rhythm, no murmurs, gallops, or rubs
Abd: Soft, non distended, nontender
Neuro: Cranial nerves grossly intact, speech fluid, no gross motor or sensory deficits
Skin: Chronic venous stasis changes in both lower legs, small shallow superficial ulceration on the anterior tucker with no signs of infection
Extremities: Bilateral lower extremity edema
Psych: Somewhat labile affect, occasional flight of ideas, reasonable insight and judgment (understands that not taking his medicine is hurting him 'it is just stupid' and also understands that there are other factors at play affecting his sleep
that he wishes to correct)
Scores
Heart Failure Risk
Heart Failure Risk Score: Not Applicable
Heart Score for Chest Pain Patients
STEMI patient?: Not applicable
Withdrawal Assessment of Alcohol
Withdrawal Assessment Completed?: Not applicable
Course
Orders/Labs/Results
Orders:
Orders
11/20/23 18:48
Crisis Consult Routine
Reason for Consult: kelsey
Vital Signs
Initial and Last Documented VS:
Initial Vital Signs
Temp Pulse Resp BP Pulse Ox
36.8 C 88 20 151/66 98
11/20/23 18:27 11/20/23 18:27 11/20/23 18:27 11/20/23 18:27 11/20/23 18:27
Last Documented Vital Signs
Temp Pulse Resp BP Pulse Ox
36.8 C 80 16 139/59 98
11/20/23 18:27 11/20/23 19:45 11/20/23 19:45 11/20/23 19:45 11/20/23 18:27
MDM/Problems Addressed
Differential Diagnosis Includes:
Kelsey, psychosis, insomnia
MDM/Problems Addressed:
73-year-old male presents for evaluation at request of his psychiatrist. Has been intermittently compliant with his medications and has not been sleeping and appears to be manic. While he is manic here he is not suicidal or homicidal and does not
appear to be a threat to himself or others. He has reasonable insight. I tried to speak directly with his psychiatrist but was unable to reach her on multiple attempts I did speak to the nurse operations officer trust department and she was able to review office note�in my
judgment patient does not meet criteria for involuntary commitment and he has no interest in inpatient psychiatric treatment. Apparently this was also noted by his outpatient psychiatrist. I did have our crisis team perform an assessment and they
agree no grounds for involuntary commitment. Will plan to discharge and advised him that he should take his medications as prescribed, we spoke about behaviors that might keep him up at night and we spoke about ensuring that he follows up with his
psychiatrist. On-call nurse for the [facility] also indicated that she would send a message to the psychiatrist to follow-up with patient.
Chronic conditions affecting care:
Bipolar disorder
Acute Exacerbation and/or Progression of Chronic Illness:
Acutely hypertensive resolved without intervention continue to monitor but no emergent indication for antihypertensive medication at present
Acute Exacerbation and/or Progression of Chronic Illness: HTN
*Pulse Oximetry
Patient hypoxic: no
*Critical Care Note
Total Time (30-74mins, 75-104mins- exclusive of procedures): Not Applicable
Data Reviewed
Source: patient and records
Patient Management
Discussion with other providers: Other (Multiple calls unsuccessful to patient's primary psychiatrist but I was able to speak with nurse on-call for the [facility]; I also discussed the case with our crisis staff)
ED Attending Note
-
Portions of this chart may have been created with voice recognition software.� Occasional wrong word or��sound alike� substitutions may have occurred due to the inherent limitations of voice recognition software.
Discharge Plan
Departure
Patient Disposition: Home (Routine Discharge)
Date of Disposition: 11/20/23
Time of Disposition: 23:33
Patient with high blood pressure during this ER visit?: Yes
Discharge Problem:
Kelsey
Instructions: Bipolar Disorder (DC)
Prescriptions:
No Action
atorvastatin 80 MG tablet
80 mg PO HS
tamsulosin 0.4 MG capsule
0.4 mg PO HS
cyanocobalamin (vitamin B-12) 1,000 MCG tablet
1,000 mcg PO DAILY
sodium bicarbonate 650 MG tablet
650 mg PO DAILY
loratadine 10 MG tablet
10 mg PO DAILY
aripiprazole 5 MG tablet
10 mg PO HS
travoprost 0.004 % Drops
1 drp BOTH EYES QPM
aspirin 81 mg Tablet,Delayed Release (Dr/Ec)
81 mg PO DAILY
white petrolatum-mineral oil Cream
1 applic TOPICAL DAILY
Simbrinza 1-0.2 % Drops,Suspension
1 drp BOTH EYES BID
turmeric 400 mg Capsule
400 mg PO BID
losartan 25 mg Tablet
25 mg PO DAILY
melatonin 3 mg Tablet
6 mg PO HS
chlorthalidone 25 mg Tablet
25 mg PO DAILY
gabapentin 100 mg Capsule
100 mg PO TID
nifedipine 60 mg Tablet Extended Release
60 mg PO AMHS
carbamazepine 300 mg Capsule, Er Multiphase 12 Hr
300 mg PO BID
Hold Instructions: Resume on 10/12/23.
ferrous sulfate [Feosol] 325 MG tablet
325 mg PO DAILY
linezolid 600 mg Tablet
600 mg PO BID 5 Days Qty: 10 0RF
linezolid 600 mg tablet
600 mg PO BID Qty: 10 0RF
hydroxyzine pamoate [Vistaril] 25 mg capsule
25 mg PO HS Qty: 14 0RF
Referrals:
UNKNOWN - PT DOES,NOT KNOW [Family Provider] -
Activity Restrictions/Additional Instructions:
You should call Dr. Jacome first thing Thursday to follow-up on your ER visit. You must take your medications as prescribed.
Thank you for visiting the Emergency Department at [facility].
1. Please schedule a follow up appointment as directed. Call first thing tomorrow morning to make an appointment.
2. If indicated, please take your medications as instructed and indicated on discharge paperwork.
3. If any of your symptoms do not improve, or persist, or become more severe within 6-12 hours, please return to the emergency department for further care.
4. Please return to the emergency department if you develop a headache, neck pain/stiffness, fever greater than 100.4F, chest pain, shortness of breath, persistent nausea, vomiting, slurred speech, difficulty walking, numbness/tingling, weakness,
signs of infection or any other symptoms that are worrisome to you.
Please call [phone] if you have any questions.
Interventions
Interventions:
*Risk Screen - Suicide Last Done: 11/20/23 18:27
*General Assessment Last Done: 11/20/23 18:27
*Neglect/Abuse Screening Last Done: 11/20/23 18:27
ED- Fall Risk Assessment Last Done: 11/20/23 19:45
*ED COVID-19 Vaccine History Last Done: 11/20/23 18:59
*Nursing Disposition Last Done: 11/21/23 00:51
ED-Psychological Assessment Last Done: 11/20/23 19:45
Discharge Date and Time
Discharge Date/Time: 11/21/23 00:51
Print Language: HUNGARIAN
== END 2023-11-21 00:51 | disposition home or self-care (01) ==
LOC: EMR 18:24
PROVIDERS: EMERGENCY PHYSICIAN Emergency Medicine
DX: F30.9 Manic episode, unspecified (principal); I10 Essential (primary) hypertension
CPT/HCPCS: 99283

== ENCOUNTER 2023-11-26 20:42 | Emergency (ER) | payer MEDICARE, SELFPAY ==
[2023-11-26 20:49] VITALS: BP 187/95
--- NOTE | 2023-11-26 23:42 | ED.GENMED ---
History of Present Illness
General
Chief Complaint: Sleep Disturbances
Source: patient
Time Seen by Provider: 11/26/23 22:45
Travel History
Have you had any contact with someone who has COVID-19?: No
Do you have any symptoms of coronavirus? Fever > 100 degrees, chills, cough, shortness of breath, sore throat, loss of taste or smell, muscle aches, or headache?: No
History of Present Illness
History of Present Illness:
73-year-old male who is visiting his in a rehab, went to his car and fell asleep and was found sleeping in the car for an unknown period of time. Car was noted to be very hot. Patient arrived without any complaints. Since arrival, he has
been resting comfortably and just had a large box lunch here without vomiting or other complaints. Patient denies chest pain, fever, chills, dizziness, dyspnea, abdominal pain, or other complaints. He states he was just tired which is why he slept
in the car. He would like to go home.
Past History
Past History
ED Past Medical History: CAD, HTN, Hypercholesterolemia, NIDDM and Psychiatric
ED Past Surgical History: Cardiac (stents) and Orthopedic (LTKR 2016)
Social History
Tobacco: Non-smoker
Alcohol: None
Drug: None
Personal:
Living: with family
Employment: Retired
Family History
Family History: Other (Father with a stroke mother with a stroke)
Phy Exam
Physical Exam
Physical Exam:
GENERAL: Alert , in no apparent distress
EYE: pupils equal and reactive
NECK: Supple, no significant adenopathy.
ENT: o/p clr, mmm.
CARDIAC: Regular rate and rhythm .
LUNGS: Clear breath sounds bilaterally, no acute respiratory distress, no wheezes/rales/rhonchi
ABDOMEN: Soft, without focal tenderness, no r/g, no cvat
NEUROLOGICAL: Alert and oriented, no focal neuro deficits
SKIN: Warm and dry, skin intact.
MUSCULOSKELETAL: No edema, well perfused.
PSYCH: Normal and appropriate interaction, no SI or HI.
Course
Orders/Labs/Results
Orders:
Orders
11/26/23 23:38
Complete Blood Count/No Diff Urgent
Comprehensive Metabolic Panel Urgent
11/26/23 23:39
Electrocardiogram (*1) Urgent
Reason for Study: Other
Other Reason for Exam: sleepiness
EKG- Treatment ONCE
11/27/23 00:52
Acetaminophen [Tylenol] 1,000 mg .ROUTE .STK-MED ONE
11/27/23 00:54
Acetaminophen [Tylenol] 1,000 mg PO NOW STA
Abnormal Lab Results
11/27/23
00:12
RBC 3.07 L 10^6/uL
(4.70-6.10)
Hgb 8.3 L g/dL
(13.0-18.0)
Hct 27.4 L %
(39.0-52.0)
MCHC 30.3 L g/dL
(33.0-37.0)
RDW 15.7 H %
(11.5-14.5)
Chloride 110 H mmol/L
(98-107)
BUN 35 H mg/dl
(9-20)
Creatinine 2.3 H mg/dL
(0.7-1.3)
Glucose 118 H mg/dl
(70-99)
Alkaline Phosphatase 157 H U/L
(38-126)
Total Protein 6.1 L g/dl
(6.3-8.2)
Albumin 3.4 L g/dl
(3.5-5.0)
11/27/23 00:12
11/27/23 00:12
Vital Signs
Initial and Last Documented VS:
Initial Vital Signs
Temp Pulse Resp BP Pulse Ox
97.7 F 73 16 187/95 97
11/26/23 20:49 11/26/23 20:49 11/26/23 20:49 11/26/23 20:49 11/26/23 20:49
Last Documented Vital Signs
Temp Pulse Resp BP Pulse Ox
97.7 F 73 17 162/85 98
11/26/23 20:49 11/27/23 01:15 11/27/23 01:15 11/27/23 01:15 11/27/23 01:15
*Critical Care Note
Total Time (30-74mins, 75-104mins- exclusive of procedures): Not Applicable
Update Note
Update Note:
Patient presents to the Emergency Department with ___sleeping in a hot car
Number and Complexity of Problems Addressed at the Encounter
� Chronic conditions affecting care:
� Acute Exacerbation and/or Progression of Chronic Illness:
� Differential Diagnosis includes: But not limited to dehydration, heat exhaustion, etc.
Amount and/or Complexity of Data to be Reviewed and Analyzed
� I performed an independent evaluation of and my interpretation is:
EKG:
CT:
Xrays:
Laboratory Studies: While abnormal, generally unchanged from prior, mild increase in patient's baseline anemia
Other:
� Review of other/old records reveals: September 2023 patient was admitted for left lower extremity cellulitis venous stasis ulcers.
� Clinical information was obtained by an independent historian:
� Prescriptions/Medications Considered but not given:
� Further testing considered but not performed:
Risk of Complications and/or Morbidity or Mortality of Patient Management
� Social determinants of health affecting care:
� Discussion with other providers (PCP, Hospitalists, Consultants, etc):
� Escalation of care including admission/observation vs risk of discharge considered: Patient noted to be walking around room easily, playing music on his phone, does not present himself as a danger to himself or others, stable
for discharge with close follow-up.
ED Attending Note
-
Portions of this chart may have been created with voice recognition software.� Occasional wrong word or��sound alike� substitutions may have occurred due to the inherent limitations of voice recognition software.
Discharge Plan
Departure
Patient Disposition: Home (Routine Discharge)
Date of Disposition: 11/27/23
Time of Disposition: 01:45
Patient with high blood pressure during this ER visit?: Yes
Condition: Good
Discharge Problem:
Anemia
Instructions: BLOOD PRESSURE
Prescriptions:
No Action
atorvastatin 80 MG tablet
80 mg PO HS
tamsulosin 0.4 MG capsule
0.4 mg PO HS
cyanocobalamin (vitamin B-12) 1,000 MCG tablet
1,000 mcg PO DAILY
sodium bicarbonate 650 MG tablet
650 mg PO DAILY
loratadine 10 MG tablet
10 mg PO DAILY
aripiprazole 5 MG tablet
10 mg PO HS
travoprost 0.004 % Drops
1 drp BOTH EYES QPM
aspirin 81 mg Tablet,Delayed Release (Dr/Ec)
81 mg PO DAILY
white petrolatum-mineral oil Cream
1 applic TOPICAL DAILY
Simbrinza 1-0.2 % Drops,Suspension
1 drp BOTH EYES BID
turmeric 400 mg Capsule
400 mg PO BID
losartan 25 mg Tablet
25 mg PO DAILY
melatonin 3 mg Tablet
6 mg PO HS
chlorthalidone 25 mg Tablet
25 mg PO DAILY
gabapentin 100 mg Capsule
100 mg PO TID
nifedipine 60 mg Tablet Extended Release
60 mg PO AMHS
carbamazepine 300 mg Capsule, Er Multiphase 12 Hr
300 mg PO BID
Hold Instructions: Resume on 10/12/23.
ferrous sulfate [Feosol] 325 MG tablet
325 mg PO DAILY
linezolid 600 mg Tablet
600 mg PO BID 5 Days Qty: 10 0RF
linezolid 600 mg tablet
600 mg PO BID Qty: 10 0RF
hydroxyzine pamoate [Vistaril] 25 mg capsule
25 mg PO HS Qty: 14 0RF
Referrals:
Ines Carlos MD [Family Provider] - Next open appointment
Activity Restrictions/Additional Instructions:
YOU HAVE LAB ABNORMALITIES THAT REQUIRE FOLLOW-UP WITH YOUR DOCTOR, PLEASE CONTACT YOUR DOCTOR FOR CLOSE FOLLOW-UP TOMORROW. IF YOU DEVELOP CHEST PAIN, SHORTNESS OF BREATH, HEADACHE, DIZZINESS, FEVER, VOMITING, OR OTHER WORRISOME SIGNS, PLEASE
RETURN TO THE ER IMMEDIATELY.
Interventions
Interventions:
*Risk Screen - Suicide Last Done: 11/26/23 20:53
*General Assessment Last Done: 11/26/23 20:53
*Neglect/Abuse Screening Last Done: 11/26/23 20:53
ED- Fall Risk Assessment Last Done: 11/26/23 23:00
ED-Suicide Risk Assessment Last Done: 11/27/23 01:08
ED- Neurological Assessment Last Done: 11/27/23 01:09
ED-Psychological Assessment Last Done: 11/27/23 01:10
Discharge Date and Time
Print Language: [id number]
[2023-11-27 00:31] LABS: Hematocrit 27.4 % (39.0-52.0); Hemoglobin 8.3 g/dL (13.0-18.0); Mean Corp Hgb Conc. 30.3 g/dL (33.0-37.0); Mean Corpuscular Volume 89.3 fL (80.0-94.0); Mean Platelet Volume 9.1 fL (7.4-10.4); Platelet Count 285 10^3/uL (130-400); Red Blood Cell Count 3.07 10^6/uL (4.70-6.10); Red Cell Dist. Width 15.7 % (11.5-14.5); White Blood Cell Count 5.3 10^3/uL (4.8-10.8)
[2023-11-27 00:39] LABS: ALT (SGPT) 14 U/L (0-50); AST (SGOT) 20 U/L (17-59); Albumin 3.4 g/dl (3.5-5.0); Alkaline Phosphatase 157 U/L (38-126); Blood Urea Nitrogen 35 mg/dl (9-20); Calcium 8.9 mg/dl (8.4-10.2); Carbon Dioxide 23 mmol/L (22-30); Chloride 110 mmol/L (98-107); Glucose 118 mg/dl (70-99); Potassium 4.3 mmol/L (3.5-5.1); Sodium 140 mmol/L (135-145); Total Bilirubin 0.2 mg/dl (0.2-1.3); Total Protein 6.1 g/dl (6.3-8.2); eGFR 29.07
[2023-11-27] MEDS: TYLENOL 1000 MG PO (00:54)
[2023-11-27 01:09] VITALS: BP 165/72
[2023-11-27 01:15] VITALS: BP 162/85
== END 2023-11-27 02:00 | disposition home or self-care (01) ==
LOC: EMR 20:42
PROVIDERS: EMERGENCY PHYSICIAN Emergency Medicine; FAMILY PHYSICIAN Internal Medicine
DX: D64.9 Anemia, unspecified (principal); I10 Essential (primary) hypertension; E78.00 Pure hypercholesterolemia, unspecified; E11.9 Type 2 diabetes mellitus without complications; I25.10 Atherosclerotic heart disease of native coronary artery without angina pectoris; Z95.5 Presence of coronary angioplasty implant and graft; Z96.652 Presence of left artificial knee joint; Z79.82 Long term (current) use of aspirin; Z88.6 Allergy status to analgesic agent; Z91.018 Allergy to other foods
CPT/HCPCS: 99283; 80053; 85027; 93005

== ENCOUNTER 2023-12-11 17:59 | Emergency (ER) | payer MEDICARE, SELFPAY ==
[2023-12-11 18:06] VITALS: BP 157/69
--- NOTE | 2023-12-11 21:09 | ED.GENMED ---
History of Present Illness
General
Chief Complaint: Fall
Source: patient
Exam Limitations: none
Time Seen by Provider: 12/11/23 18:22
Nursing documentation reviewed up to this point in time: agreed with
History of Present Illness
History of Present Illness:
73 Y/O m WITH H/O HTN ,HLD, CKD, BIPOALR
mechanical trip and fall on the sidewalk and hit his forehead with abrasion to forehead and hands
c/o left 4th fniger pain and 5th finger pain
h/o previous L finger fracture
also some pain in his right hand
no nausea, vomting, confusion, neck pain, chest pain, shortness of breath, hipe pain
has chronic b/l LE swelling and lymphedema and rednesscellulitis
he says it has been looking a little more red recently but he has been took buys with his sick to take care of it
Past History
Past History
ED Past Medical History: CAD, HTN, Hypercholesterolemia, NIDDM and Psychiatric
ED Past Surgical History: Cardiac (stents) and Orthopedic (LTKR 2016)
Social History
Tobacco: Non-smoker
Alcohol: None
Drug: None
Personal:
Living: with family
Employment: Retired
Family History
Family History: Other (Father with a stroke mother with a stroke)
Review of Systems
Review of Systems
Allergies reviewed?: Yes
All Other Systems: Not applicable
Phy Exam
Physical Exam
Physical Exam:
GENERAL: Alert , in no apparent distress
head: hematoma, abrasion forehead
slightly oozing
no lacerations to suture
EYE: pupils equal and reactive
NECK: Supple, nontnedner, full rom
ENT: b/l TM s clear, pharynx erythematous but no tonsillar hypertrophy or exudates
CARDIAC: Regular rate and rhythm, no edema
LUNGS: Clear breath sounds bilaterally, no acute respiratory distress, no wheezes/rales/rhonchi, occ cough
ABDOMEN: Soft, without focal tenderness, no r/g, no cvat, normal bowel sounds
NEUROLOGICAL: Alert and oriented, no focal neuro deficits
SKIN: Warm and dry, +hematoma forehead with abrasion, some oozing
a few superfiial lacerations on hands
erythema to b/l LE from ankles to prox 1/3 of lower leg
not warm
some weeping small area left anterior mid lower leg
nontender
MUSCULOSKELETAL: left 4th finger tip mallet finger
tender distal phalanx
left 5th finger sligthly painful rom
righ thand 4th finger slightly painful rom, nontneder
normal wrist and forearm
hips nontnener
PSYCH: oriented, labile affect, cooperative, not hallucinating
Course
Orders/Labs/Results
Orders:
Orders
12/11/23 18:07
Hand, Left 3 View [CR Hand - Left Min 3 Views] Urgent
Comment:
Reason For Exam: pain, trauma
12/11/23 18:41
CT Head W/o Iv Contrast Urgent
Comment:
Reason For Exam: fall hit head
CR Hand - Right Min 3 Views Urgent
Comment:
Reason For Exam: right hand pain after fall
12/11/23 20:58
Acetaminophen [Tylenol] 650 mg .ROUTE .STK-MED ONE
12/11/23 21:10
Acetaminophen [Tylenol] 650 mg PO NOW STA
Vital Signs
Initial and Last Documented VS:
Initial Vital Signs
Temp Pulse Resp BP Pulse Ox
98.2 F 98 18 157/69 98
12/11/23 18:06 12/11/23 18:06 12/11/23 18:06 12/11/23 18:06 12/11/23 18:06
Last Documented Vital Signs
Temp Pulse Resp BP Pulse Ox
98.2 F 98 18 157/69 98
12/11/23 18:06 12/11/23 18:06 12/11/23 18:06 12/11/23 18:06 12/11/23 18:06
MDM/Problems Addressed
Differential Diagnosis Includes:
head injuyr, concussion, ,fracture, mallet finger
chronic cellulitis
MDM/Problems Addressed:
73 y/o M
bipolar disorder
mechanical fall onto concrete + head strike, no loc
no neck pain
no vomiting
no thinners
well appearing, a little strange affect
tender forehead hematoma with abrasion
normal neuro iexam
some hand pain, left 4th finger mallet finger it appears, ptsays is new
xrays indep reviewed, no fractures (old healed fracture of prox 5th left phalax)_
head ct shows some chronic lacunar infarcts unchanged
tetanus utd
d/c home, finger splint
head injury precautions.
*Critical Care Note
Total Time (30-74mins, 75-104mins- exclusive of procedures): Not Applicable
ED Attending Note
-
Portions of this chart may have been created with voice recognition software.� Occasional wrong word or��sound alike� substitutions may have occurred due to the inherent limitations of voice recognition software.
Discharge Plan
Departure
Patient Disposition: Home (Routine Discharge)
Date of Disposition: 12/11/23
Time of Disposition: 21:02
Patient with high blood pressure during this ER visit?: Yes
Condition: Fair
Covid-19: Not Applicable
Discharge Problem:
Head injury, Abrasion of skin, Mallet deformity of left ring finger, Chronic cellulitis
Instructions: Abrasions ED, Common Finger Injuries ED, Minor Head Injury, Adult ED
Prescriptions:
New
cephalexin 250 mg capsule
250 mg PO BID Qty: 14 0RF
No Action
atorvastatin 80 MG tablet
80 mg PO HS
tamsulosin 0.4 MG capsule
0.4 mg PO HS
cyanocobalamin (vitamin B-12) 1,000 MCG tablet
1,000 mcg PO DAILY
sodium bicarbonate 650 MG tablet
650 mg PO DAILY
loratadine 10 MG tablet
10 mg PO DAILY
aripiprazole 5 MG tablet
10 mg PO HS
travoprost 0.004 % Drops
1 drp BOTH EYES QPM
aspirin 81 mg Tablet,Delayed Release (Dr/Ec)
81 mg PO DAILY
white petrolatum-mineral oil Cream
1 applic TOPICAL DAILY
Simbrinza 1-0.2 % Drops,Suspension
1 drp BOTH EYES BID
turmeric 400 mg Capsule
400 mg PO BID
losartan 25 mg Tablet
25 mg PO DAILY
melatonin 3 mg Tablet
6 mg PO HS
chlorthalidone 25 mg Tablet
25 mg PO DAILY
gabapentin 100 mg Capsule
100 mg PO TID
nifedipine 60 mg Tablet Extended Release
60 mg PO AMHS
carbamazepine 300 mg Capsule, Er Multiphase 12 Hr
300 mg PO BID
Hold Instructions: Resume on 10/12/23.
ferrous sulfate [Feosol] 325 MG tablet
325 mg PO DAILY
linezolid 600 mg Tablet
600 mg PO BID 5 Days Qty: 10 0RF
linezolid 600 mg tablet
600 mg PO BID Qty: 10 0RF
hydroxyzine pamoate [Vistaril] 25 mg capsule
25 mg PO HS Qty: 14 0RF
Referrals:
UNKNOWN - PT DOES,NOT KNOW [Family Provider] -
Activity Restrictions/Additional Instructions:
YOU HAVE NO SIGN OF SERIOUS HEAD INJURY - YOU HAVE A HEMATOMA AND ABRASION BUT NO SIGN OF HEAD BLEED
YOU HAVE SIGNS OF OLD STROKE IN YOUR BRAIN THAT YOU HAVE HAD PREVIOUSLY
ICE OFF AND ON
TAKE CARE OF YOUR WOUNDS BY WASHING THEM DAILY
APPLY TOPICAL OINTMENT
YOUR FINGER MAY HAVE A TENDON INJURY, CALLED A MALLET FINGER
WEAR THE SPLINT AND FOLLOW UP WITH THE HAND DOCTOR
ICE OFF AND ON
FOR YOUR CELLULITIS USE KEFLEX 1 TAB TWICE A DAY FOR 7D AYS
YOU SHOULD SEE YOUR DOCTOR FOR THIS
RETURN FOR ANY CONCERNS.
Interventions
Interventions:
*Risk Screen - Suicide Last Done: 12/11/23 19:45
*General Assessment Last Done: 12/11/23 19:45
*ED COVID-19 Vaccine History Last Done: 12/11/23 19:45
ED-Musculoskeletal Assessment Last Done: 12/11/23 18:33
ED- Neurological Assessment Last Done: 12/11/23 18:33
ED-Skin Assessment Last Done: 12/11/23 18:33
Discharge Date and Time
Print Language: [id number]
[2023-12-11] MEDS: TYLENOL 650 MG PO (21:11)
== END 2023-12-11 22:05 | disposition home or self-care (01) ==
LOC: EMR 17:59
PROVIDERS: EMERGENCY PHYSICIAN Emergency Medicine
DX: S09.90XA Unspecified injury of head, initial encounter (principal); S00.81XA Abrasion of other part of head, initial encounter; S60.512A Abrasion of left hand, initial encounter; S60.511A Abrasion of right hand, initial encounter; S00.31XA Abrasion of nose, initial encounter; S00.83XA Contusion of other part of head, initial encounter; M20.012 Mallet finger of left finger(s); W01.0XXA Fall on same level from slipping, tripping and stumbling without subsequent striking against object, initial encounter; Y93.02 Activity, running; E11.9 Type 2 diabetes mellitus without complications; I25.10 Atherosclerotic heart disease of native coronary artery without angina pectoris; I10 Essential (primary) hypertension; E78.00 Pure hypercholesterolemia, unspecified; M19.90 Unspecified osteoarthritis, unspecified site; H40.9 Unspecified glaucoma; Z95.5 Presence of coronary angioplasty implant and graft; Z96.652 Presence of left artificial knee joint; Z88.6 Allergy status to analgesic agent; Z91.018 Allergy to other foods; Z91.048 Other nonmedicinal substance allergy status; Z79.82 Long term (current) use of aspirin
CPT/HCPCS: 99284; 70450; 73130

== ENCOUNTER 2024-01-25 07:40 | Inpatient (IN) | payer MEDICARE, SELFPAY ==
[2024-01-24 23:10] VITALS: BP 166/90
[2024-01-25] VITALS (16 sets, daily range): BP systolic 141–199; BP diastolic 74–118; BMI 33.0; BMI 31.6
--- NOTE | 2024-01-25 01:41 | ED.GENMED ---
History of Present Illness
General
Chief Complaint: Extremity Pain (non-traumatic)
Source: patient
Exam Limitations: none
Time Seen by Provider: 01/25/24 00:57
History of Present Illness
History of Present Illness:
This is a 73 year old male that comes in with c/o leg pain. States that he has chronic cellulitis. states that he bumped the right lower leg yesterday. States that this opened a wound and it was weeping. States that he has leg pain. Denies any
fever, chills chest pain, SOB, abd pain, nausea, vomiting, diarrhea, headache, dizziness, urinary burning.
Past History
Past History
ED Past Medical History: CAD, HTN, Hypercholesterolemia, NIDDM, Renal failure, Psychiatric (Bipolar, ) and Other (Sleep apnea. Kidney disease, cellulitis, Glaucoma, )
ED Past Surgical History: Cardiac (stents, Angioplasty) and Orthopedic (LTKR 2016, Left shoulder surgery)
Social History
Tobacco: Non-smoker
Alcohol: None
Drug: None
Personal:
Living: alone
Employment: Retired
Family History
Family History: Other (Father with a stroke mother with a stroke)
Review of Systems
Review of Systems
All Other Systems: ROS reviewed and negative except as documented in HPI and ROS
Constitutional: Reports no symptoms; Denies fever or chills
EENT: Reports no symptoms
Respiratory: Reports no symptoms; Denies cough or trouble breathing
Cardiac: Reports no symptoms; Denies chest pain
ABD/GI: Reports no symptoms; Denies abdominal pain, nausea, vomiting or diarrhea
: Reports no symptoms; Denies dysuria, frequency or urgency
Musculoskeletal: Reports other (right leg pain)
Skin: Reports other (Cellulitis both lower legs. )
Neurological: Reports no symptoms; Denies dizzy or headache
Psychiatric: Reports other ([place])
Phy Exam
General Physical Exam
General Presentation: no apparent distress
General age: appears stated age
General Skin: warm and dry
General Habitus: elderly
General Mental: alert
General Hydration: appears well hydrated
ENT Exam
ENT Exam: TM's normal, pharynx normal and neck supple
Eye Exam
Eye Exam: EOMI
Cardiovascular Exam
Cardiovascular Exam: regular rate/rhythm and normal peripheral pulses
Pulmonary Exam
Pulmonary Exam: lungs clear, no respiratory distress, no rales, chest non tender, no crackles, no rhonchi, no wheezing and no cough
Gastrointestinal Exam
Gastrointestinal Exam: normal bowel sounds, non tender, soft, no organomegaly, no pulsatile mass and non distended
Musculoskeletal Exam
Musculoskeletal Exam: full ROM and edema (Slight +1 pitting edema of the lower legs)
Skin Exam
Skin Exam: normal color, warm/dry, no petechia and redness (Bilateral lower legs with increased warmth)
Psychiatric Exam
Psychiatric Exam: other (Manic behavior)
Course
Orders/Labs/Results
Orders:
Orders
01/25/24 01:40
Acetaminophen [Tylenol] 1,000 mg PO NOW STA
01/25/24 02:18
Complete Blood Count/With Diff Urgent
Comprehensive Metabolic Panel Urgent
Lactic Acid Urgent
01/25/24 02:22
Urinalysis Reflex To Culture Urgent
Date Specimen was Collected: 01/25/24
Time Specimen was Collected: 02:18
Urine Microscopic Reflex Cult Urgent
01/25/24 02:52
Lorazepam [Ativan] 0.5 mg PO NOW STA
01/25/24 02:55
Piperacillin/Tazo 3.375 Gram [Zosyn] 3.375 gram in 50 ml IV NOW
Vancomycin 1 Gram/200 ml [Vancocin] 1 gram in 200 ml IV NOW
Abnormal Lab Results
01/25/24 01/25/24
02:18 02:22
RBC 4.05 L 10^6/uL
(4.70-6.10)
Hgb 11.2 L g/dL
(13.0-18.0)
Hct 34.5 L %
(39.0-52.0)
MCHC 32.5 L g/dL
(33.0-37.0)
RDW 15.1 H %
(11.5-14.5)
Potassium 5.3 H mmol/L
(3.5-5.1)
Chloride 111 H mmol/L
(98-107)
Carbon Dioxide 21 L mmol/L
(22-30)
BUN 49 H mg/dl
(9-20)
Creatinine 2.4 H mg/dL
(0.7-1.3)
Glucose 100 H mg/dl
(70-99)
Urine Albumin (Reflex) 1+ A
(Neg - Trace)
01/25/24 02:18
01/25/24 02:18
H/H slightly low. Hyperkalemia, Chronic renal insufficiency, Glucose nonfasting, Urine negative for infection.
Vital Signs
Initial and Last Documented VS:
Initial Vital Signs
Temp Pulse Resp BP Pulse Ox
98.3 F 102 24 166/90 98
01/24/24 23:10 01/24/24 23:10 01/24/24 23:10 01/24/24 23:10 01/24/24 23:10
Last Documented Vital Signs
Temp Pulse Resp BP Pulse Ox
98.3 F 73 24 152/105 99
01/24/24 23:10 01/25/24 03:01 01/25/24 03:01 01/25/24 03:01 01/25/24 03:01
MDM/Problems Addressed
Differential Diagnosis Includes:
cellulitis, Manic behavior.
MDM/Problems Addressed:
This is a 73 year old male that comes in with c/o right leg pain. States that he bumped his leg and know the leg is very painful.
Will check labs. Patient also appears to be manic and has swings in his modes. Patient will need admission for treatment of the Cellulitis and have Psychiatrist see pain.
Chronic conditions affecting care:
Cellulitis
Chronic conditions affecting care: Psychiatric illness
Acute Exacerbation and/or Progression of Chronic Illness:
Chronic cellulitis
Acute Exacerbation and/or Progression of Chronic Illness: Psychiatric illness
*Pulse Oximetry
Patient hypoxic: no
*EKG
Interpreted by ED Provider?: NA
Rate: EKG- N/A
*Territory Account Executive Interpretation
Rate: Territory Account Executive- N/A
*Critical Care Note
Total Time (30-74mins, 75-104mins- exclusive of procedures): Not Applicable
ED Attending Note
-
Portions of this chart may have been created with voice recognition software.� Occasional wrong word or��sound alike� substitutions may have occurred due to the inherent limitations of voice recognition software.
Discharge Plan
Departure
Patient Disposition: Admit
Date of Disposition: 01/25/24
Time of Disposition: 02:59
Admit to: Med/Surg
Presentation/result/management discussed w/ accepting MD/DO: Hospitalist
Patient with high blood pressure during this ER visit?: Yes
Condition: Good
Covid-19: Not Applicable
Discharge Problem:
acute on chronic gómez leg cellulitis, Manic bipolar I disorder
Prescriptions:
No Action
atorvastatin 80 MG tablet
80 mg PO HS
tamsulosin 0.4 MG capsule
0.4 mg PO HS
cyanocobalamin (vitamin B-12) 1,000 MCG tablet
1,000 mcg PO DAILY
sodium bicarbonate 650 MG tablet
650 mg PO DAILY
loratadine 10 MG tablet
10 mg PO DAILY
aripiprazole 5 MG tablet
10 mg PO HS
travoprost 0.004 % Drops
1 drp BOTH EYES QPM
aspirin 81 mg Tablet,Delayed Release (Dr/Ec)
81 mg PO DAILY
white petrolatum-mineral oil Cream
1 applic TOPICAL DAILY
Simbrinza 1-0.2 % Drops,Suspension
1 drp BOTH EYES BID
turmeric 400 mg Capsule
400 mg PO BID
losartan 25 mg Tablet
25 mg PO DAILY
melatonin 3 mg Tablet
6 mg PO HS
chlorthalidone 25 mg Tablet
25 mg PO DAILY
gabapentin 100 mg Capsule
100 mg PO TID
nifedipine 60 mg Tablet Extended Release
60 mg PO AMHS
carbamazepine 300 mg Capsule, Er Multiphase 12 Hr
300 mg PO BID
ferrous sulfate [Feosol] 325 MG tablet
325 mg PO DAILY
linezolid 600 mg Tablet
600 mg PO BID 5 Days Qty: 10 0RF
linezolid 600 mg tablet
600 mg PO BID Qty: 10 0RF
hydroxyzine pamoate [Vistaril] 25 mg capsule
25 mg PO HS Qty: 14 0RF
cephalexin 250 mg capsule
250 mg PO BID Qty: 14 0RF
Referrals:
UNKNOWN - PT DOES,NOT KNOW [Family Provider] -
Interventions
Interventions:
*Risk Screen - Suicide Last Done: 01/24/24 23:10
*General Assessment Last Done: 01/24/24 23:49
*Neglect/Abuse Screening Last Done: 01/24/24 23:10
ED- Fall Risk Assessment Last Done: 01/25/24 02:40
*ED COVID-19 Vaccine History Last Done: 01/24/24 23:49
ED-Skin Assessment Last Done: 01/24/24 23:49
ED-Peripheral Vascular Assessment Last Done: 01/24/24 23:49
ED-Musculoskeletal Assessment Last Done: 01/24/24 23:49
Discharge Date and Time
Print Language: [email or web address]
[2024-01-25] MEDS: TYLENOL 1000 MG PO (02:32)
[2024-01-25 02:38] LABS: Urine Albumin 1+ (Neg - Trace); Urine Bilirubin Negative (Negative); Urine Character Clear (Clear); Urine Color Yellow; Urine Glucose Negative (Negative); Urine Ketone Negative (Negative); Urine Leukocyte Negative (Negative); Urine Nitrite Negative (Negative); Urine Occult Blood Negative (Negative); Urine Specific Gravity 1.005 (<1.030); Urine Urobilinogen Negative (Neg - 1+)
[2024-01-25 02:39] LABS: % Basophils 0.4 % (0-2); % Eosinophils 4.2 % (0-6); % Immature Granulocytes 0.3 % (0-0.5); % Lymphocytes 24.1 % (20.5-51.1); % Monocytes 8.7 % (1.7-9.3); % Neutrophils 62.3 % (42.2-75.2); Absolute Eosinophils 0.3 10^3/uL (0-0.7); Absolute Lymphocytes 1.7 10^3/uL (1.2-3.4); Absolute Monocytes 0.6 10^3/uL (0.1-0.6); Absolute Neutrophils 4.5 10^3/uL (1.4-6.5); Hematocrit 34.5 % (39.0-52.0); Hemoglobin 11.2 g/dL (13.0-18.0); Mean Corp Hgb Conc. 32.5 g/dL (33.0-37.0); Mean Corpuscular Hgb 27.7 pg (27.0-31.0); Mean Corpuscular Volume 85.2 fL (80.0-94.0); Mean Platelet Volume 9.3 fL (7.4-10.4); Nucleated Red Blood Cells % 0 % (-); Platelet Count 242 10^3/uL (130-400); Red Blood Cell Count 4.05 10^6/uL (4.70-6.10); Red Cell Dist. Width 15.1 % (11.5-14.5); White Blood Cell Count 7.2 10^3/uL (4.8-10.8)
[2024-01-25 02:59] LABS: Lactic Acid 0.9 mmol/L (0.7-2.0)
[2024-01-25 03:01] LABS: ALT (SGPT) 11 U/L (0-50); AST (SGOT) 20 U/L (17-59); Albumin 4.4 g/dl (3.5-5.0); Alkaline Phosphatase 126 U/L (38-126); Blood Urea Nitrogen 49 mg/dl (9-20); Calcium 9.8 mg/dl (8.4-10.2); Carbon Dioxide 21 mmol/L (22-30); Chloride 111 mmol/L (98-107); Estimated Creatinine Clearance 32 ml/min; Glucose 100 mg/dl (70-99); Potassium 5.3 mmol/L (3.5-5.1); Sodium 142 mmol/L (135-145); Total Bilirubin 0.3 mg/dl (0.2-1.3); Total Protein 7.2 g/dl (6.3-8.2); eGFR 27.62
[2024-01-25] MEDS: ZOSYN 50 IV (03:08)
[2024-01-25] MEDS: ATIVAN 0.5 MG PO (03:08)
[2024-01-25 03:16] LABS: Urine Red Blood Cell None Seen /HPF (0-2); Urine White Cell None Seen /HPF (0-5)
[2024-01-25] MEDS: VANCOCIN 200 IV (03:53)
--- NOTE | 2024-01-25 07:10 | HPS.HSE ---
Family Physician
-
Family Physician: NOT KNOW UNKNOWN - PT DOES
Chief Complaint
-
Leg pain
History of Present Illness
Patient is a 73y M with PMH significant for ASCVD, HTN, chronic venous stasis and bipolar disorder who presents to ED complaining of leg pain. Patient reports chronic issues with recurrent bilateral LE cellulitis. He was last admitted here for
this reason in September 2023. Patient states that his legs have been more painful for the past few days. He states that he may have bumped his R leg on some furniture at home.
Patient is also tearful during the exam and notes that he has been feeling paranoid recently. Patient describes events at home recently including writing on the mirror with his feces and later realizing what he'd done and feeling tearful and
ashamed.
Patient notes that his in November after a 3 month illness.
He is not able to tell me his current medications / doses at this time.
He is easily distracted and his histories are tangential and repetitive at times.
Medical History
Past Medical History
Past Medical History: Reports Other
Additional Past Medical History:
DM2
CAD/[place] with stent
CKD3b
HTN
HLD,
glaucoma
gout
morbid obesity
PVD with peripheral neuropathy
chronic venous stasis dermatitis
Chronic ambulatory dysfunction uses walker at baseline
Past Surgical History: Reports Other
Additional Past Surgical History:
Cath with stent, 1999 left femur fracture repair with jerry, left knee replacement
Social History
Tobacco: Non-smoker
Alcohol: None
Drug: None
Personal:
Living: With Family
Family History
Family History: Not pertinent
Allergies / Home Medications
Allergies reflects when Allergies were last updated in ASSET[facility].
Home Medications with original date entered in ASSET[facility]
Allergy/Medication List:
Allergies
Allergy/AdvReac Type Severity Reaction Status Date / Time
soy Allergy face Verified 01/24/24 23:14
swelling
and
wheezing
NSAIDS (Non-Steroidal AdvReac stage 3 Verified 01/24/24 23:14
Anti-Inflamma kidney
disease
chocolate syrup Allergy Pharmacy Uncoded 01/24/24 23:14
to Review
hay fever Allergy sneezing,runny Uncoded 01/24/24 23:14
nose,itchy
eyes
Home Medications
atorvastatin 80 mg tablet 80 mg PO HS High cholesterol 02/09/15
tamsulosin 0.4 mg capsule 0.4 mg PO HS Urinary issue 02/09/15
aripiprazole 5 mg tablet 10 mg PO HS bipolar disorder 03/21/20
cyanocobalamin (vitamin B-12) 1,000 mcg tablet 1,000 mcg PO DAILY Supplement 03/21/20
loratadine 10 mg tablet 10 mg PO DAILY Allergies 03/21/20
sodium bicarbonate 650 mg tablet 650 mg PO DAILY Hx metabolic acidosis 03/21/20
aspirin 81 mg tablet,delayed release 81 mg PO DAILY Blood Clot Prevention/Tx 08/02/23
brinzolamide 1 %-brimonidine 0.2 % eye drops,suspension (Simbrinza) 1 drp BOTH EYES BID Eye Condition 08/02/23
travoprost 0.004 % eye drops 1 drp BOTH EYES QPM Eye Condition 08/02/23
turmeric 400 mg capsule 400 mg PO BID Supplement 08/02/23
white petrolatum-mineral oil topical cream 1 applic topical DAILY apply to B/L feet and legs 08/02/23
carbamazepine 300 mg capsule,extended release [id number] 300 mg PO BID bipolar disorder 09/29/23
chlorthalidone 25 mg tablet 25 mg PO DAILY Blood Pressure/fluid retention 09/29/23
ferrous sulfate 325 mg (65 mg iron) tablet (Feosol) 325 mg PO DAILY Supplement 09/29/23
gabapentin 100 mg capsule 100 mg PO TID Pain 09/29/23
losartan 25 mg tablet 25 mg PO DAILY Blood Pressure 09/29/23
melatonin 3 mg tablet 6 mg PO HS Sleep 09/29/23
nifedipine 60 mg tablet,extended release 60 mg PO AMHS Blood Pressure 09/29/23
linezolid 600 mg tablet 600 mg PO BID Infection 5 days #10 tabs 10/05/23
linezolid 600 mg tablet 600 mg PO BID #10 tabs 10/07/23
hydroxyzine pamoate 25 mg capsule (Vistaril) 25 mg PO HS insomnia #14 caps 11/13/23
cephalexin 250 mg capsule 250 mg PO BID #14 caps 12/11/23
If medication reconciliation has not been performed, why?: Other (Unable to confirm current meds at present.)
Review of Systems
-
History Source: Patient
A 12 point ROS was completed and negative except as noted: Yes
Constitutional: Reports Fatigue; Denies Fever or Chills
Respiratory: Denies Cough or Trouble Breathing
Cardiac: Denies Chest Pain or Palpitations
Abdomen/GI: Denies Abdominal Pain, Nausea, Vomiting or Diarrhea
: Denies Dysuria, Frequency or Flank Pain
Musculoskeletal: Reports Edema and Other (Leg Pain)
Skin: Reports Other (Leg wounds / oozing.)
Neurological: Denies Dizzy or Headache
Psych: Reports Depression, Anxiety and Other (Paranoia)
Physical Exam
Vital Signs
Vital Signs
Temp Pulse Resp BP Pulse Ox
98.3 F 93 21 155/113 99
01/24/24 23:10 01/25/24 07:00 01/25/24 07:00 01/25/24 06:30 01/25/24 07:00
Physical Exam
General: Other (73y M in mild distress due to anxiety / fear.)
HEENT: Other (Dry MM, thick neck.)
Respiratory: Other (Decreased at bases - otherwise clear.)
Cardiac: S1/S2 and Regular Rhythm; No Murmur
GI: Other (Obese, not tender. Pos BS.)
Musculoskeletal: Other (Chronic LE venous stasis skin changes. Chronic appearing ulceration L tucker without bleeding / discharge. Superficial wound R tucker with mild bleeding. Erythema, induration and increaaed warmth from ankle to knee
bilaterally.)
Neuro: Awake, Alert and Oriented
Psych: Other (Tearful, depressed. Pressured speech / tangential speech. Denies suicidal / homicidal ideations.)
Laboratory Results
-
01/25/24 02:18
01/25/24 02:18
Laboratory Results
Lactic Acid 0.9 mmol/L (0.7-2.0) 01/25/24 02:18
Total Bilirubin 0.3 mg/dl (0.2-1.3) 01/25/24 02:18
AST 20 U/L (17-59) 01/25/24 02:18
ALT 11 U/L (0-50) 01/25/24 02:18
Alkaline Phosphatase 126 U/L (38-126) 01/25/24 02:18
Impression/Plan
-
A/P: Patient is a 73y M with PMH significant for ASCVD, HTN, bipolar disorder and CKD who presents to ED complaining of LE pain and mood changes.
Bilateral Lower Extremity Cellulitis
Chronic Venous Stasis Skin Changes
- Admit for further evaluation and treatment.
- IV abx for now and follow for clinical improvement.
- Wound Care evaluation for local care recommendations.
- Pain control / supportive care.
Bipolar Disorder
Paranoia / Kelsey
- Recent mood changes and atypical behaviors at home and here in the ED.
- Calling out, tearful and afraid without discernable reason.
- Continue psychotropic meds as per last reconciliation for now.
- Formal Psych evaluation for additional recommendations.
ASCVD
- Stable. Continue current CV med regimen.
- No complaints of chest pain, dyspnea, etc.
Benign Hypertension
- Stable. Continue OP meds with holding parameters.
CKD III
Mild Hyperkalemia
Non-Gapped Metabolic Acidosis
- Stable. Renal function is at / near known baseline.
- Mild hyperkalemia and will hold ARB acutely.
- Increase HCO3 to BID.
- Follow for changes in labs / lytes / etc.
BPH
- Stable. Continue tamsulosin.
DVT Prophylaxis: Subcut Heparin
Code Status: Full
--- NOTE | 2024-01-25 08:37 | PHANOTE ---
med rec note- [facility] [place] [facility] does not know [facility], he stated that since his he really his not been taking his medication. he does not know them by name or go over them. he keep talking in [place] about random
things. [facility] and used physician
[2024-01-25 10:39] LABS: TSH Reflex To Free T4 1.47 uIU/ml (0.47-4.68)
[2024-01-25] MEDS: PROCARDIA XL (EXTENDED RELEASE) 60 MG PO ×2 (10:50→20:27)
[2024-01-25] MEDS: TEGRETOL 400 MG PO ×2 (10:50→20:28)
[2024-01-25] MEDS: ASPIR LOW (ENTERIC COATED) 81 MG PO (10:50)
[2024-01-25] MEDS: HEPARIN 5000 UNITS SC ×2 (10:51→20:27)
[2024-01-25] MEDS: NEURONTIN 100 MG PO ×3 (10:51→22:25)
[2024-01-25] MEDS: SODIUM BICARBONATE 650 MG PO ×2 (10:52→20:28)
[2024-01-25] MEDS: ANCEF 5 IV (10:52)
--- NOTE | 2024-01-25 11:42 | W.PN.HOSP.TC ---
Today's Communication/Plan
-
Vasc eval
US LE venous and arterial
Unasyn
Psych eval
Assessment / Plan
Assessment / Plan
73yo M with PMHx of MDD with paranoid features, BYRON, neuropathy, CKD stage 3b, chronic LE venous insufficiency with recurrent wound came with concern for bizarre behaviour when he smeared his feces over the mirrr in bathroom for no reason. Also c/o
wound and pain in RLL after he bumped it. Admitted for intermittent compulsive behaviour and LLE cellulitis with concern for vascular disease
A/P:
#MDD with psychotic features
Recently lost , so can be a component of grieve, anxiety-induced
No SI
Psychiatry consult
cont home meds
#RLE cellulitis with vascular insufficiency
was previously on keflex
reasonable to start Unasyn ans switch to Augmentin upon d/c
US LE to r/o DVT
Art US LE
Vasc consult
Elevate extremity
Wound care
#CKD stage 3b
#BYRON
#Essential HTN
#Neuropathy
#BPH
cont home meds
watch for urinary retention - RN protocol
#mild hyperkalemia
low potassium diet
follow CBC
Hold ARB
DVt ppx hep
FUll code
I have spent at least 60min reviewing chart, test results, communication with consultants, family and direct patient care
Anticipated Discharge: 24 - 48 hours
Subjective/Interval History
-
Date of Service: January 25, 2024
Objective Data
-
Labs:
Laboratory Results
01/25/24
02:18
WBC 7.2
Hgb 11.2 L
Hct 34.5 L
Plt Count 242
Sodium 142
Potassium 5.3 H
Chloride 111 H
Carbon Dioxide 21 L
BUN 49 H
Creatinine 2.4 H
Glucose 100 H
Calcium 9.8
Total Bilirubin 0.3
AST 20
ALT 11
Alkaline Phosphatase 126
Vital Signs:
Vital Signs
Temp Pulse Resp BP Pulse Ox
97.6 F 81 20 147/91 95
01/25/24 09:05 01/25/24 10:50 01/25/24 09:05 01/25/24 10:50 01/25/24 09:05
I&O
01/24/24 01/25/24 01/26/24
06:59 06:59 06:59
Output Total 750 / 750
Balance -750 / -750
Review of Systems
-
History Source: Patient
All other systems: Reviewed and negative
Physical Exam
-
General: No Apparent Distress
HEENT: Normocephalic and Atraumatic
Respiratory: Clear to Auscultation
Cardiac: Regular Rhythm
GI: Soft, Nontender and Nondistended
Genito-urinary: No Costovertebral Tender
Musculoskeletal: No Clubbing, No Cyanosis and No Edema
Skin: Other (b/l wound on shins, RLE mild surrounding wound redness, no purulence )
Neuro: Awake, Alert, Oriented and AO x 3
Psych: Calm
[2024-01-25] MEDS: UNASYN IV ×3 (14:17→20:28)
--- NOTE | 2024-01-25 14:41 | CS.PSYCHR ---
Consult Summary - Psychiatry
-
Pt is 73 yo male with long history of Bipolar d/o, admitted with bilat low ext cellulitis. Pt noted to be tangential, repetitive, with paranoid thought content. On interview, pt is alert, oriented, sitting up on side of bed in no acute distress.
Pt initially expressed concern about his care/treatment, but became more jovial and pleasant as the conversation continued. Pt was cooperative with care, receiving IV Abx, IV line being flushed/reconnected. Pt states he has Bipolar d/o, has 100%
service-connected benefits through the [facility] sees an outpatient doctor at [facility]. Pt reports Tegretol was recently increased to 400 mg BID, states his blood level was okay. Pt denies side effects on current psychotropic medications. Pt
talkative, telling stories, spoke about his 's passing in November with appropriate affect. Pt denies depression, denies SI.
Psych Hx: Bipolar d/o, history of tip/hypomania, seen by Psychiatry consult service in the past with similar presentation. Meds- Tegretol 400 mg BID, Abilify 10 mg QD
Pt reports recent brief contact with ED, assessed and released
SH: lives alone, recently , , receives care through the [facility]
MSE: alert, oriented, calm, cooperative. Pt is talkative, mildly pressured, telling stories. Speech mildly pressured, thought somewhat tangential, but redirectable. Pt expresses some mild paranoid ideation. Denies SI. Insight limited to fair
Imp: Bipolar d/o, mildly hypomanic/ overall stable, may be at usual baseline. No signs of acute tip or depression
Rec: maintain existing outpatient psychotropic medications. Check Tegretol level- does recently increased. Agree with Ativan prn
will follow
--- NOTE | 2024-01-25 15:36 | CM ---
Patient seen bedside.
Patient lives alone, spouse in November.
Patient independent prior to admission.
Ambulates with a RW, standing walker with arm rests and seat, cane
Patient has scripts at home for outpatient therapy but he needs a new one.
Will await PT/OT to assess for homecare needs.
Patient has [facility] [employer] to help with meals and home needs.
Pharmacy: [facility]
PCP:
Plan: Home with possible VN
--- NOTE | 2024-01-25 16:03 | WOUNDNOTE ---
L ANTERIOR LOWER LEG
--- NOTE | 2024-01-25 16:05 | WOUNDNOTE ---
FLO RN note: Patient admitted with B/L Leg Cellulitis.
See H&P for complete history. recently at [facility].
PMH: Bipolar disorder, NIDDM, HTN, angina, RI, frequent falls, gout and cellulitis of legs.
Wound Location and type/assessment: Patient know to service, admitted with redness to legs, and intact dry scab on both legs. Compared to last seen legs much improved. Legs dry and warm. Patient turns self, sacrum and heels intact. Nurse Aileen
reports + audible pedal pulses with Doppler. Vascular consulted, Dr. Lopez following. Patient had ESTEE and vascular ultrasound done, results pending.
Appetite: Good.
Pressure redistribution devices in place: Accumax appropriate.
Plan: A & D ointment applied today will order Mineral oil to dry skin on both legs daily. Will defer to vascular if Ac wraps knee high appropriate. Updated nurse, care plan and will follow as needed.
Note to case management of equipment requested for discharge: TBD
Recommend follow up at wound care center upon discharge.
[2024-01-25 16:11] LABS: Tegretol (Carbamazepine) < 3.0 ug/ml (4-12)
[2024-01-25] MEDS: TYLENOL 650 MG PO (19:24)
[2024-01-25] MEDS: ABILIFY 10 MG PO (22:24)
[2024-01-25] MEDS: LIPITOR 80 MG PO (22:25)
[2024-01-25] MEDS: XALATAN OPHTHALMIC SOLUTION 1 DROP BOTH EYES (22:25)
[2024-01-25] MEDS: FLOMAX 0.4 MG PO (22:25)
[2024-01-26] MEDS: UNASYN IV ×3 (01:44→14:30)
[2024-01-26] MEDS: TYLENOL 650 MG PO ×2 (05:36→09:51)
[2024-01-26 07:52] VITALS: BP 139/71
[2024-01-26] MEDS: PROCARDIA XL (EXTENDED RELEASE) 60 MG PO (08:01)
[2024-01-26] MEDS: ASPIR LOW (ENTERIC COATED) 81 MG PO (08:01)
[2024-01-26] MEDS: NEURONTIN 100 MG PO ×2 (08:01→16:20)
[2024-01-26] MEDS: SODIUM BICARBONATE 650 MG PO (08:01)
[2024-01-26] MEDS: HEPARIN 5000 UNITS SC (08:02)
[2024-01-26] MEDS: TEGRETOL 400 MG PO (08:02)
[2024-01-26] MEDS: HYDROPHOR 1 APPLIC TOPICAL (08:03)
--- NOTE | 2024-01-26 08:53 | CON.VAS ---
Addendum entered and electronically signed by Jun Lopez MD 01/26/24 10:23:
Seen and examined with OMAR Ibrahim. Agree with findings as noted below. From what I gather from patient he has had chronic lower extremity recurrent cellulitis. Asked to evaluate for possible arterial issues. Bilateral calf cellulitis. Small
chronic proximal calf superficial ulcerations, clean no infection. Palpable bilateral DP pulses 2+. Noninvasive studies reviewed. Right TBI within normal limits 0.78. Left TBI mild to moderately decreased 0.51.
Plan/bilateral lower extremity cellulitis. Not arterial driven. No evidence of severe arterial sufficiency which would result in this. May have chronic venous insufficiency. Recommend continue compression wraps. Outpatient venous reflux
ultrasound and follow-up with vein center if ultrasound identifies significant venous reflux. No vascular surgical intervention needed at this time.
Original Note:
Consultation
Consultation Request
Date/Time Consultation Performed: 01/26/24 0820
Requesting Provider: Hospitalist
Performing Provider: Henny Ibrahim NP-C for Jun Lopez MD
Reason for Consultation: Bilateral lower extremity cellulitis
Medical History
-
Chief Complaint: Bilateral lower extremity cellulitis
History of Present Illness:
This is a 73-year-old male with significant past medical history for for ASCVD, HTN, chronic venous stasis and bipolar disorder who presents to emergency department on 01/25/2024 with reports of bilateral lower extremity leg pain. Patient
endorses significant past medical history for reoccurring bilateral lower extremity cellulitis and venous stasis/lower extremity edema. Patient states that his legs have been more painful for the past few days. He states that he may have bumped his
right leg on some furniture at home. Patient is a challenging historian, who is easily distracted and repetitive. However, he does endorse that he is somewhat compliant with wearing bilateral lower extremity compression stockings at home, even
recalling level of compression (-20 mmHg) and his preference to compression sock brand. He denies symptoms of claudication or rest pain.
Past Medical History
Past Medical History: CAD, HTN, NIDDM and Other (CKD3B, hyperlipidemia, glaucoma, gout, obesity, chronic venous stasis dermatitis, chronic ambulatory dysfunction uses walker at baseline)
Past Surgical History: Cardiac (Cardiac cath with PCI) and Orthopedic ( 1999 left femur fracture repair with jerry, left knee replacement)
Social History
Tobacco: Non-Smoker
Alcohol: None
Allergies / Home Medications
Allergy/AdvReac Type Severity Reaction Status Date / Time
soy Allergy face Verified 01/24/24 23:14
swelling
and
wheezing
NSAIDS (Non-Steroidal AdvReac stage 3 Verified 01/24/24 23:14
Anti-Inflamma kidney
disease
chocolate syrup Allergy Pharmacy Uncoded 01/24/24 23:14
to Review
hay fever Allergy sneezing,runny Uncoded 01/24/24 23:14
nose,itchy
eyes
�Medication �Instructions �Recorded �Confirmed �Type
atorvastatin 80 mg tablet 80 mg PO HS High cholesterol 02/09/15 01/25/24 History
sodium bicarbonate 650 mg tablet 650 mg PO DAILY Hx metabolic 03/21/20 01/25/24 History
acidosis
aspirin 81 mg tablet,delayed 81 mg PO DAILY Blood Clot 08/02/23 01/25/24 History
release Prevention/Tx
brinzolamide 1 %-brimonidine 0.2 % 1 drp BOTH EYES BID Eye Condition 08/02/23 01/25/24 History
eye drops,suspension (Simbrinza)
travoprost 0.004 % eye drops 1 drp BOTH EYES QPM Eye Condition 08/02/23 01/25/24 History
gabapentin 100 mg capsule 100 mg PO TID Pain 09/29/23 01/25/24 History
nifedipine 60 mg tablet,extended 60 mg PO BID Blood Pressure 09/29/23 01/25/24 History
release
aripiprazole 20 mg tablet (Abilify) 10 mg PO HS mental health 01/25/24 01/25/24 History
carbamazepine 200 mg 400 mg PO BID Neurological 01/25/24 01/25/24 History
tablet,extended release,12 hr Condition
coffee extract 100 mg-phosphatidyl 1 cap PO DAILY Supplement 01/25/24 01/25/24 History
serine 100 mg capsule (Neuriva
Original)
ferrous sulfate 325 mg (65 mg 325 mg PO DAILY Supplement 01/25/24 01/25/24 History
iron) tablet
loratadine 10 mg tablet 10 mg PO DAILY Allergies 01/25/24 01/25/24 History
Review of Systems
-
History Source: Patient
Constitutional: Reports No Symptoms
EENT: Reports No Symptoms
Respiratory: Reports No Symptoms
Cardiac: Reports No Symptoms
Vascular: Denies Leg Pain / Claudication
Abdomen/GI: Reports No Symptoms
: Reports No Symptoms
Musculoskeletal: Reports Edema (Trace edema in bilateral lower extremity)
Skin: Reports Other (Bilateral lower extremity erythema at anterior and posterior calf and tenderness)
Neurological: Reports No Symptoms
Physical Exam
Vital Signs
Temp Pulse Resp BP Pulse Ox
97.9 F 83 19 139/71 98
01/26/24 07:52 01/26/24 08:01 01/26/24 07:52 01/26/24 08:01 01/26/24 07:52
Lab Results
01/25/24 02:18
01/25/24 02:18
Physical Exam
General: No Apparent Distress and Comfortable
HEENT: Normocephalic and Anicteric
Respiratory: Non Labored Respirations
Cardiac: Negative JVD
GI: Soft, Non Tender and Non Distended
Musculoskeletal: Edema (Trace edema bilateral lower extremities)
Skin: Other (Bilateral lower extremity With anterior and posterior erythema, small ulceration at bilateral calves please refer to wound care note pictures)
Neuro: Awake and Alert
Pulses: Bilateral Dorsalis Pedis: +2
Assessment / Plan
-
Assessment: 73-year-old male admitted with bilateral cellulitis, and history of chronic venous stasis
Plan:
Noninvasive arterial imaging with TBI reviewed, right side within normal range and left TBI slightly decreased however has multiphasic waveforms with only evidence of mild stenoses at left common/proximal SFA femoral artery. However, patient has
no evidence of arterial ischemic wounds, noninvasive imaging and physical exam supports evidence that patient should be able to heal bilateral cellulitis as this is likely driven from his venous stasis. No surgical intervention required.
Recommend continued compliance with compression stockings
Continue antibiotics per primary team
I performed this shared service with the attending. I evaluated the patient [id number] and have entered clinical documentation as shown in the encounter note. I performed the following component(s): history and physical exam. Note that medical
decision making is not final until attested by vascular attending.
--- NOTE | 2024-01-26 12:49 | W.PN.HOSP.TC ---
Today's Communication/Plan
-
d/c on oral doxycycline
Assessment / Plan
Assessment / Plan
73yo M with PMHx of MDD with paranoid features, BYRON, neuropathy, CKD stage 3b, chronic LE venous insufficiency with recurrent wound came with concern for bizarre behavior when he smeared his feces over the mirror in bathroom for no reason. Also c/o
wound and pain in RLL after he bumped it. Admitted for intermittent compulsive behavior and LLE cellulitis with concern for vascular disease
MDD with psychotic features--Recently lost , so can be a component of grieve, anxiety-induced--No SI--apprec psych--cont home meds
RLE with venous insufficiency --not likely bilateral cellulitis--pt does not need IV abx--can switch to doxycycline or augmentin (as having 'improvement' with unasyn)--apprec vascular--no arterial issues, no surgery needed--cont compression
wraps--US neg for DVT
CKD stage 3b/BYRON/Essential HTN/Neuropathy/BPH--cont home meds
mild hyperkalemia--low potassium diet--Hold ARB
DVt ppx hep
Full code
ok for d/c with home health
Anticipated Discharge: Today
Subjective/Interval History
-
Date of Service: January 26, 2024
pt wants to stay in the hospital
Objective Data
-
Vital Signs:
max temp for 24 hours
01/26/24
07:52
Temp 97.9 F
Vital Signs
Temp Pulse Resp BP Pulse Ox
97.9 F 83 19 139/71 98
01/26/24 07:52 01/26/24 08:01 01/26/24 07:52 01/26/24 08:01 01/26/24 07:52
I&O
01/25/24 01/26/24 01/27/24
06:59 06:59 06:59
Intake Total 1140 / 1140
Output Total 1450 / 1450
Balance -310 / -310
Review of Systems
-
All other systems: Reviewed and negative
Physical Exam
-
General: Well Developed, Well Nourished and No Apparent Distress
HEENT: Normocephalic and Atraumatic
Respiratory: Clear to Auscultation; Negative Wheezes or Rhonchi
Cardiac: Regular Rhythm and S1/S2; Negative Murmur
GI: Soft, Nontender, Nondistended and Normal Bowel Sounds
Musculoskeletal: No Clubbing, No Cyanosis, No Edema and Other (tense legs (not appreciably swollen) with redness)
Neuro: Awake and Alert
--- NOTE | 2024-01-26 13:36 | CM ---
Patient seen at bedside with physician. Patient is for discharge home today with PO antibiotic. Patient requested paper prescriptions and is planning to call an uber. CM confirmed that patient would like to have referral to [facility] for home health
care and social work assessment /supports. Patient PCP is Dr. Carlos. Patient stated that he was happy that he was able to go home. CM will continue to follow for discharge planning needs.
Plan;home with [facility] referral
--- NOTE | 2024-01-26 15:14 | W.PN.UPDATE ---
Update Note
Progress Note Update
Pt seen, reviewed with nursing staff. Pt appears stable, in good mood, with no signs of active tip. Pt is talkative and likes conversation. No signs of psychosis, does not express any persecutory ideation. Pt alert, oriented, states he is
feeling better, pain in legs is much less. Pt has been cooperative with treatment.
Imp: Bipolar d/o, mildly hypomanic/ overall stable, may be at usual baseline. No signs of acute tip or depression
Rec: maintain existing outpatient psychotropic medications. Pt is psychiatrically stable to return to Outpatient treatment when medically cleared.
[2024-01-26 15:41] VITALS: BP 128/78
[2024-01-26 16:00] VITALS: BP 132/92
--- NOTE | 2024-01-27 07:17 | W.DCSUMMARY ---
Addendum entered and electronically signed by Michelle Jiang MD 01/27/24 16:59:
Actual date of discharge was January 26, 2024 not the as documented below.
Original Note:
Discharge Summary
Discharge Data
Date of Admission: 01/25/24
Date of Discharge: 01/27/24
-
Pending Results: No
Hospital Course
Primary care physician : Not Listed
Principal Discharge diagnosis : Major depressive disorder with psychotic features, right lower extremity (actually bilaterally) venous insufficiency
Chronic Discharge diagnosis : Chronic kidney disease stage IIIb, iron deficiency anemia, essential hypertension, chronic neuropathy, benign prostatic hyperplasia
Hospital Course : Patient was a 73-year-old male with chronic venous stasis and bipolar disorder who presented complaining of leg pain. He reports chronic issues with 'recurrent bilateral lower extremity cellulitis'. He was admitted in September 2023
for the same. He stated his legs were more painful over the past few days. During the admitting physician's exam, patient was tearful and noted that he was feeling paranoid. He describes events at home including writing on the mirror with feces
and then feeling tearful and ashamed. His in November 2023 after a 3-month illness. Patient was easily distracted and tangential. Patient was admitted.
Problem #1: Major depressive disorder with psychotic features. Patient was seen in consultation by psychiatry. This was felt to be due to the recent loss of his and a component of grief along with anxiety inducing issues. He was not
suicidal. At the time of discharge, psychiatry felt that the patient was at his usual baseline without any signs of acute tip or depression. They recommended continuing his outpatient psychotropic medications.
Problem #2: Bilateral lower extremity venous insufficiency. Patient was started on Unasyn for presumed bilateral lower extremity cellulitis. He was seen in consultation by vascular surgery. They were asked to evaluate for arterial issues.
Patient had right TBI within normal limits, left TBI was moderately decreased. Vascular does not believe that this is arterial driven and there is no evidence of severe arterial insufficiency. He likely has chronic venous insufficiency and they
recommend continued compression wraps. Outpatient venous reflux ultrasound with follow-up at the vein center is also recommended. Patient was changed from IV Unasyn to oral doxycycline to complete a course.
Problem #3: All other medical issues. These include Chronic kidney disease stage IIIb, iron deficiency anemia, essential hypertension, chronic neuropathy, benign prostatic hyperplasia. These medical issues were stable during his hospitalization.
Medications were continued as able.
Patient is stable for discharge at this time. If there are any questions regarding this dictation or his hospital stay, please not hesitate to call. Our office number is [phone].
Discharge Plan
-
Patient Disposition: Home with Home Care
Discharge Diagnosis/Procedures: Major depressive disorder with psychotic features, bilateral lower extremity venous insufficiency, chronic kidney disease stage IIIb, iron deficiency anemia, essential hypertension, neuropathy, benign prostatic
hyperplasia, mild hyperkalemia
Condition: Good
Diet: As tolerated and Regular
Activity: As tolerated
Driving Restrictions: No driving
Bathing Restrictions: None
Other Services: VN, PT and OT
Activity Restrictions/Additional Instructions:
Wound Care Instructions
Mineral oil to dry skin on both legs daily.
Follow up at wound care center call for an appointment.
Referrals:
UNKNOWN - PT DOES,NOT KNOW [Family Provider] - in less than 1 week
Prescriptions:
New
tamsulosin 0.4 mg Capsule
0.4 mg PO HS Qty: 0 0RF
acetaminophen 325 mg Tablet
650 mg PO Q4HPRN PRN (Reason: Mild Pain / Temp > 101) Qty: 0 0RF
aripiprazole 5 mg Tablet
10 mg PO HS Qty: 30 0RF
sodium bicarbonate 650 mg Tablet
650 mg PO BID Qty: 30 0RF
white petrolatum [Hydrophor] 42 % Ointment
1 applic topical DAILY Qty: 454 0RF
doxycycline hyclate 100 mg tablet
100 mg PO BID Qty: 14 0RF
Continued
atorvastatin 80 MG tablet
80 mg PO HS
travoprost 0.004 % Drops
1 drp BOTH EYES QPM
aspirin 81 mg Tablet,Delayed Release (Dr/Ec)
81 mg PO DAILY
Simbrinza 1-0.2 % Drops,Suspension
1 drp BOTH EYES BID
gabapentin 100 mg Capsule
100 mg PO TID
nifedipine 60 mg Tablet Extended Release
60 mg PO BID
carbamazepine 200 mg Tablet Extended Release 12 Hr
400 mg PO BID
Neuriva Original 100-100 mg Capsule
1 cap PO DAILY
ferrous sulfate 325 mg (65 mg iron) Tablet
325 mg PO DAILY
loratadine 10 mg Tablet
10 mg PO DAILY
Discontinued
sodium bicarbonate 650 MG tablet
650 mg PO DAILY
aripiprazole [Abilify] 20 mg Tablet
10 mg PO HS
Discharge Orders:
Discharge Patient (As Directed); Ordered 01/26/24
Ordered By: Michelle Jiang
Discharge Date and Time
Discharge Date/Time: 01/26/24 20:16
Print Language: BAHRAINI
== END 2024-01-26 20:16 | disposition home health service (06) | DRG 885 ==
LOC: 4 WEST ACU 07:40
PROVIDERS: Clinical Nurse Specialist Family Health; ADMITTING PHYSICIAN Hospitalist; ATTENDING PHYSICIAN Internal Medicine; CONSULT PHYSICIAN Psychiatry & Neurology Psychiatry; EMERGENCY PHYSICIAN Emergency Medicine; OTHER PHYSICIAN Surgery Vascular Surgery
DX: F31.0 Bipolar disorder, current episode hypomanic (principal); E87.20 Acidosis, unspecified; L03.115 Cellulitis of right lower limb; L03.116 Cellulitis of left lower limb; E11.22 Type 2 diabetes mellitus with diabetic chronic kidney disease; E11.40 Type 2 diabetes mellitus with diabetic neuropathy, unspecified; E11.51 Type 2 diabetes mellitus with diabetic peripheral angiopathy without gangrene; E11.42 Type 2 diabetes mellitus with diabetic polyneuropathy; I12.9 Hypertensive chronic kidney disease with stage 1 through stage 4 chronic kidney disease, or unspecified chronic kidney disease; N18.32 Chronic kidney disease, stage 3b; D50.9 Iron deficiency anemia, unspecified; E66.01 Morbid (severe) obesity due to excess calories; Z68.33 Body mass index [BMI] 33.0-33.9, adult; E78.00 Pure hypercholesterolemia, unspecified; N40.0 Benign prostatic hyperplasia without lower urinary tract symptoms; G47.30 Sleep apnea, unspecified; E87.5 Hyperkalemia; H40.9 Unspecified glaucoma; I25.10 Atherosclerotic heart disease of native coronary artery without angina pectoris; Z95.5 Presence of coronary angioplasty implant and graft; I87.2 Venous insufficiency (chronic) (peripheral); I87.8 Other specified disorders of veins; J30.1 Allergic rhinitis due to pollen; M10.9 Gout, unspecified; F41.9 Anxiety disorder, unspecified; Z79.82 Long term (current) use of aspirin; Z79.84 Long term (current) use of oral hypoglycemic drugs; Z79.899 Other long term (current) drug therapy; Z87.81 Personal history of (healed) traumatic fracture; Z63.4 Disappearance and death of family member; Z96.652 Presence of left artificial knee joint
CPT/HCPCS: 80053; 80156; 81003; 81015; 83605; 84443; 85025; 87070; 87147; 93922; 93925; 93970; 96365; 96366; 96367; 97162; 97166; 99285

== ENCOUNTER 2024-01-30 01:26 | Observation (INO) | payer MEDICARE, SELFPAY ==
[2024-01-29 21:50] VITALS: BMI 32.2
[2024-01-29 21:52] VITALS: BP 167/83
[2024-01-29 22:00] VITALS: BP 150/67
--- NOTE | 2024-01-29 22:21 | ED.GENMED ---
History of Present Illness
<BROOKE Herron (Lenka) - Last Filed: 01/30/24 00:30>
General
Chief Complaint: Headache
Source: patient
Exam Limitations: none
Time Seen by Provider: 01/29/24 22:04
Nursing documentation reviewed up to this point in time: agreed with
History of Present Illness
History of Present Illness:
Pt is a 73 yo male with PMHx of bipolar disorder, HTN/HLD, CKD stage 3, NIDDM, and sleep apnea who presents from home to the ED with concerns over a headache. Pt reports that tonight after dinner he developed mild B/L 'chest discomfort across the
upper chest, under the neck' that lasted 10 minutes, relieved by one dose of aspirin 81mg. After, he developed a dry cough that he states is intermittent, but he has not had for a while. On exam, his primary complaints are the intermittent dry cough
and a mild B/L frontal ROSENBERG. He denies fevers, chills, vision changes (blurry vision, double vision), eye pain, current chest pain, dyspnea, pain with inspiration, abdominal pain.
Of note - pt was recently admitted 01/23 - 01/25, discharged 3d ago to home, for B/L lower leg cellulitis and a manic bipolar I episode (cleared by psych). Pt unsure if he has been taking his medications.
EM[facility] contacted [facility], evidently so has his landlord.
Past History
<BROOKE Herron (Lenka) - Last Filed: 01/30/24 00:30>
Past History
ED Past Medical History: CAD, HTN, Hypercholesterolemia, NIDDM, Renal failure, Psychiatric (Bipolar I) and Other (Sleep apnea. Kidney disease, cellulitis, Glaucoma, )
ED Past Surgical History: Cardiac (stents, Angioplasty) and Orthopedic (LTKR 2016, Left shoulder surgery)
Social History
Tobacco: Non-smoker
Alcohol: None
Drug: None
Personal:
Living: alone
Employment: Retired
Family History
Family History: Other (Father with a stroke mother with a stroke)
Phy Exam
<BROOKE Herron (Lenka) - Last Filed: 01/30/24 00:30>
General Physical Exam
General Presentation: well appearing and no apparent distress
General age: appears stated age
General Skin: warm and dry
General Habitus: elderly and obese
General Mental: alert
General Hydration: appears well hydrated
ENT Exam
ENT Exam: EOMI and pharynx normal
Eye Exam
Eye Exam: PERRL, EOMI and conjunctiva normal
Cardiovascular Exam
Cardiovascular Exam: normal peripheral pulses
Pulmonary Exam
Pulmonary Exam: no respiratory distress and chest non tender
Cough: coarse cough and non productive cough
Gastrointestinal Exam
Gastrointestinal Exam: non tender and soft
Neurological Exam
Neurological Exam: alert
Skin Exam
Skin Exam: redness (B/L distal lower extremities)
Psychiatric Exam
Psychiatric Exam: normal mood/affect
Course
<BROOKE Herron (Lenka) - Last Filed: 01/30/24 00:30>
Orders/Labs/Results
Orders:
Orders
01/29/24 21:53
EKG [Electrocardiogram (*1)] Urgent
Reason for Study: Shortness of Breath
01/29/24 21:54
EKG- Treatment ONCE
01/29/24 22:30
Acetaminophen [Tylenol] 1,000 mg PO NOW STA
CR Chest - 2 Views Urgent
Comment:
Reason For Exam: cp, cough
01/29/24 22:41
COVID-19 Antigen Urgent
Source: Nasal Swab
01/29/24 23:24
Complete Blood Count/With Diff Urgent
Comprehensive Metabolic Panel Urgent
Troponin I Urgent
01/30/24 01:00
Flush (0.9% Sodium Chloride) [Flush (Nss)] See Dose Instructions IV PER PROTOCOL
Abnormal Lab Results
01/29/24 01/29/24
22:41 23:24
WBC 4.4 L 10^3/uL
(4.8-10.8)
RBC 3.36 L 10^6/uL
(4.70-6.10)
Hgb 9.4 L g/dL
(13.0-18.0)
Hct 28.2 L %
(39.0-52.0)
RDW 15.1 H %
(11.5-14.5)
Absolute Lymphs (auto) 0.7 L 10^3/uL
(1.2-3.4)
Absolute Monos (auto) 0.7 H 10^3/uL
(0.1-0.6)
Lymphocytes % 15.0 L %
(20.5-51.1)
Monocytes % 16.3 H %
(1.7-9.3)
Chloride 110 H mmol/L
(98-107)
Carbon Dioxide 18 L mmol/L
(22-30)
BUN 38 H mg/dl
(9-20)
Creatinine 2.5 H mg/dL
(0.7-1.3)
Glucose 101 H mg/dl
(70-99)
Total Protein 6.2 L g/dl
(6.3-8.2)
SARS-CoV-2 Antigen Positive A
(Negative)
01/29/24 23:24
01/29/24 23:24
Vital Signs
Initial and Last Documented VS:
Initial Vital Signs
Pulse Ox
95
01/29/24 21:51
Last Documented Vital Signs
Temp Pulse Resp BP Pulse Ox
99.3 F 87 20 150/67 94
01/29/24 21:52 01/29/24 22:15 01/29/24 22:15 01/29/24 22:00 01/29/24 22:15
<Oleg Heller, - Last Filed: 01/30/24 00:08>
Orders/Labs/Results
Orders:
Orders
01/29/24 21:53
EKG [Electrocardiogram (*1)] Urgent
Reason for Study: Shortness of Breath
01/29/24 21:54
EKG- Treatment ONCE
01/29/24 22:30
Acetaminophen [Tylenol] 1,000 mg PO NOW STA
CR Chest - 2 Views Urgent
Comment:
Reason For Exam: cp, cough
01/29/24 22:41
COVID-19 Antigen Urgent
Source: Nasal Swab
01/29/24 23:24
Complete Blood Count/With Diff Urgent
Comprehensive Metabolic Panel Urgent
Troponin I Urgent
01/30/24 01:00
Flush (0.9% Sodium Chloride) [Flush (Nss)] See Dose Instructions IV PER PROTOCOL
Abnormal Lab Results
01/29/24 01/29/24
22:41 23:24
WBC 4.4 L 10^3/uL
(4.8-10.8)
RBC 3.36 L 10^6/uL
(4.70-6.10)
Hgb 9.4 L g/dL
(13.0-18.0)
Hct 28.2 L %
(39.0-52.0)
RDW 15.1 H %
(11.5-14.5)
Absolute Lymphs (auto) 0.7 L 10^3/uL
(1.2-3.4)
Absolute Monos (auto) 0.7 H 10^3/uL
(0.1-0.6)
Lymphocytes % 15.0 L %
(20.5-51.1)
Monocytes % 16.3 H %
(1.7-9.3)
Chloride 110 H mmol/L
(98-107)
Carbon Dioxide 18 L mmol/L
(22-30)
BUN 38 H mg/dl
(9-20)
Creatinine 2.5 H mg/dL
(0.7-1.3)
Glucose 101 H mg/dl
(70-99)
Total Protein 6.2 L g/dl
(6.3-8.2)
SARS-CoV-2 Antigen Positive A
(Negative)
01/29/24 23:24
01/29/24 23:24
Vital Signs
Initial and Last Documented VS:
Initial Vital Signs
Pulse Ox
95
01/29/24 21:51
Last Documented Vital Signs
Temp Pulse Resp BP Pulse Ox
99.3 F 87 20 150/67 94
01/29/24 21:52 01/29/24 22:15 01/29/24 22:15 01/29/24 22:00 01/29/24 22:15
<BROOKE Herron (Lenka) - Last Filed: 01/30/24 00:30>
MDM/Problems Addressed
Differential Diagnosis Includes:
DDx: ROSENBERG, stable angina, VT, PNA, COVID
Pt presenting with mild chest discomfort, intermittent dry cough, new onset ROSENBERG, and temperature 99.3 (baseline 97F).
Given recent 4d hospitalization + new dry cough, will obtain CXR and COVID swab.
Given LE cellulitis, will obtain CBC, CMP.
Given cardiac discomfort and hx of CAD/HTN/cardiology procedures, will obtain EKG and troponin and CBC/CMP.
EKG (01/28 22:03) - NSR + RBBB, normal axis
<Oleg Heller DO - Last Filed: 01/30/24 00:08>
MDM/Problems Addressed
MDM/Problems Addressed:
Acute COVID-19, chronic renal insufficiency, bipolar disorder, hypertension
<BROOKE Herron (Lenka) - Last Filed: 01/30/24 00:30>
*Critical Care Note
Total Time (30-74mins, 75-104mins- exclusive of procedures): Not Applicable
<Oleg Heller DO - Last Filed: 01/30/24 00:08>
*Radiology
Radiology exam reviewed: preliminary read by ED provider (Enlarged cardiac silhouette, no pneumonia)
*Pulse Oximetry
Patient hypoxic: no
*EKG
Interpreted by ED Provider?: Yes
Interpretation: abnormal
Rate: normal
Rhythm: sinus
QRS Pattern: right bundle branch block
Ischemia: no ischemia
*Black And White Printer Operator Interpretation
Rate: normal
Interpretation: normal
Rhythm: sinus
Data Reviewed
Review of Other/Old Records Reveals: Discharge Summary (Recent discharge summary reviewed)
Source: patient
Prescriptions/Medications Considered But Not Given:
Considered antibiotics patient is COVID-positive and no evidence of bacterial infection
<BROOKE Herron (Lenka) - Last Filed: 01/30/24 00:30>
Update Note
Update Note:
COVID positive
ED Attending Note
<BROOKE Herron (Lenka) - Last Filed: 01/30/24 00:30>
-
Portions of this chart may have been created with voice recognition software.� Occasional wrong word or��sound alike� substitutions may have occurred due to the inherent limitations of voice recognition software.
<Oleg Heller DO - Last Filed: 01/30/24 00:08>
ED Attending Note
Patient seen and examined by attending physician: Yes
I performed the substantive portion of visit, reviewed & personally made and approve the management plan that is documented in note by myself or JOSE.: Yes
ED Attending Note:
73-year-old male with a history of bipolar disorder who was recently discharged from the hospital just 3 days ago. Patient presents tonight with cough and chest pain. He had chest pain earlier tonight but is unable to know exactly when it started.
Patient states his chest pain has resolved. He became concerned because he also felt little bit weak and had a headache. He does have a known history of bipolar disorder. EMS reported that they are to file area for aging report. Patient states
he cannot recall if he took his medications at home. No noted fevers. Exam: Awake and alert. Slightly confused at times. No respiratory distress. Redness noted to bilateral lower extremities. Abdomen nontender. Assessment and plan: Patient is
COVID-positive. Continue appearing red. Unclear whether he has been taking his docs. I do suspect he is in need for rehabilitation or longer-term care. Previous records reviewed show case management was able to set [facility].
Patient was ambulated but could not get out of bed and is weak. Admit
Discharge Plan
Departure
Patient Disposition: Admit
Date of Disposition: 01/30/24
Time of Disposition: 00:07
Admit to: Med/Surg
Presentation/result/management discussed w/ accepting MD/DO: Hospitalist
Discharge Problem:
Chronic kidney disease, COVID-19, Weakness, Cellulitis
Prescriptions:
No Action
atorvastatin 80 MG tablet
80 mg PO HS
travoprost 0.004 % Drops
1 drp BOTH EYES QPM
aspirin 81 mg Tablet,Delayed Release (Dr/Ec)
81 mg PO DAILY
Simbrinza 1-0.2 % Drops,Suspension
1 drp BOTH EYES BID
gabapentin 100 mg Capsule
100 mg PO TID
nifedipine 60 mg Tablet Extended Release
60 mg PO BID
carbamazepine 200 mg Tablet Extended Release 12 Hr
400 mg PO BID
Neuriva Original 100-100 mg Capsule
1 cap PO DAILY
ferrous sulfate 325 mg (65 mg iron) Tablet
325 mg PO DAILY
loratadine 10 mg Tablet
10 mg PO DAILY
tamsulosin 0.4 mg Capsule
0.4 mg PO HS Qty: 0 0RF
acetaminophen 325 mg Tablet
650 mg PO Q4HPRN PRN (Reason: Mild Pain / Temp > 101) Qty: 0 0RF
aripiprazole 5 mg Tablet
10 mg PO HS Qty: 30 0RF
sodium bicarbonate 650 mg Tablet
650 mg PO BID Qty: 30 0RF
white petrolatum [Hydrophor] 42 % Ointment
1 applic topical DAILY Qty: 454 0RF
doxycycline hyclate 100 mg tablet
100 mg PO BID Qty: 14 0RF
Referrals:
UNKNOWN - PT DOES,NOT KNOW [Unknown Provider] -
Interventions
Interventions:
*Risk Screen - Suicide Last Done: 01/29/24 21:49
*General Assessment Last Done: 01/29/24 21:49
*Neglect/Abuse Screening Last Done: 01/29/24 21:49
ED- Fall Risk Assessment Last Done: 01/29/24 21:51
*ED COVID-19 Vaccine History Last Done: 01/29/24 21:49
ED- Neurological Assessment Last Done: 01/29/24 21:51
Discharge Date and Time
Print Language: SOL[place] ISLANDER
[2024-01-29] MEDS: TYLENOL 1000 MG PO (22:42)
[2024-01-29 22:52] LABS: COVID-19 Antigen Positive (Negative)
[2024-01-29 23:00] VITALS: BP 151/73
[2024-01-29 23:42] LABS: % Basophils 0.2 % (0-2); % Immature Granulocytes 0.5 % (0-0.5); % Monocytes 16.3 % (1.7-9.3); Absolute Eosinophils 0.1 10^3/uL (0-0.7); Absolute Lymphocytes 0.7 10^3/uL (1.2-3.4); Absolute Monocytes 0.7 10^3/uL (0.1-0.6); Absolute Neutrophils 2.9 10^3/uL (1.4-6.5); Hematocrit 28.2 % (39.0-52.0); Hemoglobin 9.4 g/dL (13.0-18.0); Mean Corp Hgb Conc. 33.3 g/dL (33.0-37.0); Mean Corpuscular Volume 83.9 fL (80.0-94.0); Mean Platelet Volume 9.5 fL (7.4-10.4); Nucleated Red Blood Cells % 0 % (-); Platelet Count 183 10^3/uL (130-400); Red Blood Cell Count 3.36 10^6/uL (4.70-6.10); Red Cell Dist. Width 15.1 % (11.5-14.5); White Blood Cell Count 4.4 10^3/uL (4.8-10.8)
[2024-01-29 23:49] LABS: ALT (SGPT) 12 U/L (0-50); AST (SGOT) 21 U/L (17-59); Albumin 3.7 g/dl (3.5-5.0); Alkaline Phosphatase 100 U/L (38-126); Blood Urea Nitrogen 38 mg/dl (9-20); Calcium 8.9 mg/dl (8.4-10.2); Carbon Dioxide 18 mmol/L (22-30); Chloride 110 mmol/L (98-107); Estimated Creatinine Clearance 31 ml/min; Glucose 101 mg/dl (70-99); Potassium 4.9 mmol/L (3.5-5.1); Sodium 138 mmol/L (135-145); Total Bilirubin 0.2 mg/dl (0.2-1.3); Total Protein 6.2 g/dl (6.3-8.2)
[2024-01-30] LABS: Troponin I 0.019 ng/ml
--- NOTE | 2024-01-30 00:33 | HPS.HSE ---
Family Physician
-
Family Physician: Ines Carlos
Chief Complaint
-
CP, cough and weakness
History of Present Illness
HPI
73M DC'd from 3 days ago HX CKD3b/4, NIDDM, JASON, chronic b/l Melissa venous stasis ( Rt > Lt ) and bipolar disorder seen at ER for evalaution of dry cough and CP;
- Chest discomfort: onset is uncertain just report earlier part of the night, at upper chest, lasted 10 Mins, relieved by 1 dose of ASA
- Intermittent dry cough: plus ROSENBERG and associated weakness.
ROS
Denies fevers, chills, vision changes (blurry vision, double vision), eye pain, current chest pain, dyspnea, pain with inspiration, abdominal pain.
Medical History
Past Medical History
Past Medical History: Reports Other
Additional Past Medical History:
DM2
CAD/[place] with stent
CKD3b
HTN
HLD,
glaucoma
gout
morbid obesity
PVD with peripheral neuropathy
chronic venous stasis dermatitis
Chronic ambulatory dysfunction uses walker at baseline
Past Surgical History: Reports Other
Additional Past Surgical History:
Cath with stent, 1999 left femur fracture repair with jerry, left knee replacement
Social History
Tobacco: Non-smoker
Alcohol: None
Drug: None
Personal:
Living: With Family
Family History
Family History: Not pertinent
Allergies / Home Medications
Allergies reflects when Allergies were last updated in [employer].
Home Medications with original date entered in [employer]
Allergy/Medication List:
Allergies
Allergy/AdvReac Type Severity Reaction Status Date / Time
soy Allergy face Verified 01/24/24 23:14
swelling
and
wheezing
NSAIDS (Non-Steroidal AdvReac stage 3 Verified 01/24/24 23:14
Anti-Inflamma kidney
disease
chocolate syrup Allergy Pharmacy Uncoded 01/24/24 23:14
to Review
hay fever Allergy sneezing,runny Uncoded 01/24/24 23:14
nose,itchy
eyes
Home Medications
atorvastatin 80 mg tablet 80 mg PO HS High cholesterol 02/09/15
tamsulosin 0.4 mg capsule 0.4 mg PO HS Urinary issue 02/09/15
aripiprazole 5 mg tablet 10 mg PO HS bipolar disorder 03/21/20
cyanocobalamin (vitamin B-12) 1,000 mcg tablet 1,000 mcg PO DAILY Supplement 03/21/20
loratadine 10 mg tablet 10 mg PO DAILY Allergies 03/21/20
sodium bicarbonate 650 mg tablet 650 mg PO DAILY Hx metabolic acidosis 03/21/20
aspirin 81 mg tablet,delayed release 81 mg PO DAILY Blood Clot Prevention/Tx 08/02/23
brinzolamide 1 %-brimonidine 0.2 % eye drops,suspension (Simbrinza) 1 drp BOTH EYES BID Eye Condition 08/02/23
travoprost 0.004 % eye drops 1 drp BOTH EYES QPM Eye Condition 08/02/23
turmeric 400 mg capsule 400 mg PO BID Supplement 08/02/23
white petrolatum-mineral oil topical cream 1 applic topical DAILY apply to B/L feet and legs 08/02/23
carbamazepine 300 mg capsule,extended release [id number] 300 mg PO BID bipolar disorder 09/29/23
chlorthalidone 25 mg tablet 25 mg PO DAILY Blood Pressure/fluid retention 09/29/23
ferrous sulfate 325 mg (65 mg iron) tablet (Feosol) 325 mg PO DAILY Supplement 09/29/23
gabapentin 100 mg capsule 100 mg PO TID Pain 09/29/23
losartan 25 mg tablet 25 mg PO DAILY Blood Pressure 09/29/23
melatonin 3 mg tablet 6 mg PO HS Sleep 09/29/23
nifedipine 60 mg tablet,extended release 60 mg PO AMHS Blood Pressure 09/29/23
linezolid 600 mg tablet 600 mg PO BID Infection 5 days #10 tabs 10/05/23
linezolid 600 mg tablet 600 mg PO BID #10 tabs 10/07/23
hydroxyzine pamoate 25 mg capsule (Vistaril) 25 mg PO HS insomnia #14 caps 11/13/23
cephalexin 250 mg capsule 250 mg PO BID #14 caps 12/11/23
If medication reconciliation has not been performed, why?: Other (Unable to confirm current meds at present.)
Review of Systems
-
History Source: Patient
A 12 point ROS was completed and negative except as noted: Yes
Constitutional: Reports Fever (low grade ) and Fatigue; Denies Chills
Respiratory: Reports Cough (dry)
Abdomen/GI: Denies Abdominal Pain, Nausea, Vomiting or Diarrhea
: Denies Dysuria, Frequency or Flank Pain
Musculoskeletal: Reports Edema and Other (Leg Pain)
Skin: Reports Other (Leg wounds / oozing.)
Neurological: Reports Headache and Weakness; Denies Dizzy
Psych: Reports Depression, Anxiety and Other (Paranoia)
Physical Exam
Vital Signs
Vital Signs
Temp Pulse Resp BP Pulse Ox
99.3 F 87 20 150/67 94
01/29/24 21:52 01/29/24 22:15 01/29/24 22:15 01/29/24 22:00 01/29/24 22:15
Physical Exam
General: Well Nourished (Obese ), No Apparent Distress, Comfortable, Conversant and Other (poor dentition )
HEENT: Other (Dry MM, thick neck.)
Respiratory: Other (Decreased at bases - otherwise clear.)
Cardiac: S1/S2 and Regular Rhythm; No Murmur
GI: Other (Obese, not tender. Pos BS.)
Musculoskeletal: Other (Chronic LE venous stasis skin changes. Chronic appearing ulceration L tucker without bleeding / discharge. Superficial wound R tucker with mild bleeding. Erythema, induration and increaaed warmth from ankle to knee
bilaterally.)
Neuro: Awake, Alert and Oriented
Psych: Calm and Other (Tearful, depressed. Pressured speech / tangential speech. Denies suicidal / homicidal ideations.)
Laboratory Results
-
01/29/24 23:24
01/29/24 23:24
Laboratory Results
Total Bilirubin 0.2 mg/dl (0.2-1.3) 01/29/24 23:24
AST 21 U/L (17-59) 01/29/24 23:24
ALT 12 U/L (0-50) 01/29/24:24
Alkaline Phosphatase 100 U/L (38-126) 01/29/24 23:24
Troponin I 0.019 ng/ml 01/29/24 23:24
Data Reviewed
-
Lab Data: Labs Reviewed by me
Old Records: Reviewed
Impression/Plan
-
Reviewed VS: T 99.3 RR20 POx 94 on RA BP 150/65
Data
WCC 4.4 - was 7.2 on 01/25/24
Hgb 9.4 - baseline low 9s
Cl 110
CO2 18 - baseline 19-23
BUN 38
Cr 2.5 - baseline mid 2.3- 2.4
eGFR 26
TPNI 0.019
POS Covid
EKG
NORMAL SINUS RHYTHM WITH SINUS ARRHYTHMIA
RIGHT BUNDLE BRANCH BLOCK
ABNORMAL ECG
WHEN COMPARED WITH ECG OF 27-NOV-2023 00:01,
PREMATURE ATRIAL COMPLEXES ARE NO LONGER PRESENT
Last hospitalist admission: 01/25/24 - 01/27/24
PDX: Major depressive disorder with psychotic features, right lower extremity (actually bilaterally) venous insufficiency
Chronic DC DX: : CKD IIIb, iron deficiency anemia, essential hypertension, chronic neuropathy, benign prostatic hyperplasia
ASSESSMENT & PLAN
Pending Rx reconciliation
Acute viral covid illness with dry cough, weakness
Low grade fever with borderline hypoxic RI
Associated acute marginal leucopenia
- Supportive care
- ID consult
Chest pressure
NEG TPNI
Unremarkable EKG for acute ischemia
- Trend TPNI
CKD 3b/4 HX
Metabolic acidosis: marginally worsened
DC' d HCO# on last admission
- Resume NaHCO3 1 tab daily
- Trend Cr
HX MDD
- HX Psycotic features on last admission
- Major loss; Recently lost , so can be a component of grieve, anxiety-induced
- cont home meds
RLE with venous insufficiency
NEG DVT US on last admission
- cont compression wraps
BYRON
BPH
Essential HTN
Neuropathy
BPH
-cont home meds
DVT Px: SQH
Code: full code
Obs MS
[2024-01-30 01:53] VITALS: BP 158/70; BMI 31.6
--- NOTE | 2024-01-30 02:00 | PTCARENOTE ---
no delay received. aaox3 anx @ x[facility]. vss. plan of care updated. call [place] in reach. will monitor.
[2024-01-30] MEDS: ASPIR LOW (ENTERIC COATED) 81 MG PO (08:13)
[2024-01-30] MEDS: MUCINEX 600 MG PO ×2 (08:13→20:15)
[2024-01-30] MEDS: PROCARDIA XL (EXTENDED RELEASE) 60 MG PO ×2 (08:13→20:15)
[2024-01-30] MEDS: NEURONTIN 100 MG PO ×3 (08:13→21:47)
[2024-01-30] MEDS: SODIUM BICARBONATE 650 MG PO ×2 (08:13→20:17)
[2024-01-30] MEDS: SIMBRINZA 1%-0.2% OPHTH SUSP 1 DROP BOTH EYES ×2 (08:14→20:17)
[2024-01-30 08:25] VITALS: BP 137/83
[2024-01-30 09:25] LABS: % Basophils 0.2 % (0-2); % Eosinophils 2.9 % (0-6); % Immature Granulocytes 0.2 % (0-0.5); % Lymphocytes 15.5 % (20.5-51.1); % Monocytes 16.2 % (1.7-9.3); Absolute Eosinophils 0.1 10^3/uL (0-0.7); Absolute Lymphocytes 0.6 10^3/uL (1.2-3.4); Absolute Monocytes 0.7 10^3/uL (0.1-0.6); Absolute Neutrophils 2.6 10^3/uL (1.4-6.5); Hematocrit 32.3 % (39.0-52.0); Hemoglobin 10.2 g/dL (13.0-18.0); Mean Corp Hgb Conc. 31.6 g/dL (33.0-37.0); Mean Corpuscular Hgb 27.9 pg (27.0-31.0); Mean Corpuscular Volume 88.3 fL (80.0-94.0); Mean Platelet Volume 9.2 fL (7.4-10.4); Nucleated Red Blood Cells % 0 % (-); Platelet Count 169 10^3/uL (130-400); Red Blood Cell Count 3.66 10^6/uL (4.70-6.10); Red Cell Dist. Width 14.9 % (11.5-14.5); White Blood Cell Count 4.1 10^3/uL (4.8-10.8)
[2024-01-30 10:38] LABS: ALT (SGPT) 14 U/L (0-50); AST (SGOT) 23 U/L (17-59); Alkaline Phosphatase 99 U/L (38-126); Blood Urea Nitrogen 38 mg/dl (9-20); Calcium 9.1 mg/dl (8.4-10.2); Carbon Dioxide 20 mmol/L (22-30); Chloride 109 mmol/L (98-107); Estimated Creatinine Clearance 31 ml/min; Glucose 143 mg/dl (70-99); Potassium 4.4 mmol/L (3.5-5.1); Sodium 140 mmol/L (135-145); Total Bilirubin 0.2 mg/dl (0.2-1.3); Total Protein 6.5 g/dl (6.3-8.2)
--- NOTE | 2024-01-30 12:19 | W.PN.HOSP.TC ---
Today's Communication/Plan
-
await ID
PT/OT
Assessment / Plan
Assessment / Plan
pt is a 73 year old male
Acute viral COVID positive illness with dry cough, weakness--Low grade fever with borderline hypoxic RI--await ID consult--not on O2--not on treatment
Chest pressure --NEG TPNI --Unremarkable EKG for acute ischemia
CKD 3b/4 HX --Metabolic acidosisDC' d HCO3 on last admission - Resume NaHCO3 1 tab daily - Trend Cr
HX MDD - HX Psycotic features on last admission - Major loss; Recently lost , so can be a component of grieve, anxiety-induced- cont home meds
RLE with venous insufficiency--NEG DVT US on last admission - cont compression wraps
BYRON
Essential HTN
Neuropathy
BPH
-cont home meds
DVT Px: SQH
Code: full code
Anticipated Discharge: 24 - 48 hours
Subjective/Interval History
-
Date of Service: January 30, 2024
pt no longer feeling weak, wants to get up
Objective Data
-
Labs:
Laboratory Results
01/30/24
09:13
WBC 4.1 L
Hgb 10.2 L
Hct 32.3 L
Plt Count 169
Sodium 140
Potassium 4.4
Chloride 109 H
Carbon Dioxide 20 L
BUN 38 H
Creatinine 2.5 H
Glucose 143 H
Calcium 9.1
Total Bilirubin 0.2
AST 23
ALT 14
Alkaline Phosphatase 99
Vital Signs:
max temp for 24 hours
01/30/24
00:01
Temp 99.5 F
Vital Signs
Temp Pulse Resp BP Pulse Ox
99.1 F 91 18 137/83 97
01/30/24 01:53 01/30/24 08:25 01/30/24 01:53 01/30/24 08:25 01/30/24 09:00
I&O
01/29/24 01/30/24 01/31/24
06:59 06:59 06:59
Intake Total 480 / 480
Balance 480 / 480
Review of Systems
-
All other systems: Reviewed and negative
Constitutional: Denies Fatigue or Weakness
Physical Exam
-
General: Well Developed, Well Nourished and No Apparent Distress
HEENT: Normocephalic and Atraumatic
Respiratory: Clear to Auscultation; Negative Wheezes or Rhonchi
Cardiac: Regular Rhythm and S1/S2; Negative Murmur
GI: Soft, Nontender, Nondistended and Normal Bowel Sounds
Musculoskeletal: No Clubbing, No Cyanosis and No Edema
Neuro: Awake and Alert
Psych: Other (very animated, wants to get up and go home)
[2024-01-30 12:32] LABS: Glucose - Point of Care 102 mg/dl (70-99)
--- NOTE | 2024-01-30 13:41 | CM ---
CM spoke with pt on phone.
Pt lives alone in a ground floor apt. with 0 [address].
Prior to admit pt ind with amb using a RW. Ind with ADL's. Does not drive. Uses Uber.
Pt is currently open with [facility] and would like to resume with [facility] after dc when offered choice.
Pt is currently admitted under observation. MOREJON reviewed over phone since pt in isolation. All questions answered. Original on chart.
Pt has [facility] 4 hours/day, three days/week. Assist with cooking and cleaning.
Discharge dispo is home with [facility]. Will need assist with transport home.
--- NOTE | 2024-01-30 13:46 | CON.ID ---
Consultation
-
Date/Time Consultation Requested: 01/30/24 1:34
Date/Time Consultation Performed: 01/30/24 13:46
Requesting Provider: Dr Anne
Performing Provider: Dr Tuttle
Reason for Consultation: Acute viral covid illnes, CKD3b/4, HX MDD
Chief Complaint / Past History
Chief Complaint
chest pain, cough, weakness
History of Present Illness
Mr Schwarz is a 73 year old male with history of CKD3, DM2, venous stasis dermatitis who presented here late last night for chest pain x10 minutes, relieved by ASA, cough, headache and weakness. Denies fevers, chills, current chest pain, dyspnea,
pain with inspiration, abdominal pain. No difficulty breathing.
Since arrival here he has been afebrile, bp stable, saturating 97% on room air, wbc on arrival 4.4 and ow 4.1, hgb 10.2, plt 169, no L shift, there is however lymphocytopenia, Cr 2.5, t bili 0.2, ast 23, alt 14, alk phos 99, covid ag test positive,
CXR: no consolidations, a mrsa screen has been sent and was recently positive 01/25/24, ID is asked to comment on treatment.
Past History
Additional Past Medical History:
DM2
CAD/AL with stent
CKD3b
HTN
HLD,
glaucoma
gout
obesity
PVD with peripheral neuropathy
chronic venous stasis dermatitis
Additional Past Surgical History:
Cath with stent, 2000 left femur fracture repair with jerry, left knee replacement
Allergy History:
soy Allergy (Verified 01/24/24 23:14)
face swelling and wheezing
NSAIDS (Non-Steroidal Anti-Inflamma Adverse Reaction (Verified 01/24/24 23:14)
stage 3 kidney disease
chocolate syrup Allergy (Uncoded 01/24/24 23:14)
Pharmacy to Review
hay fever Allergy (Uncoded 01/24/24 23:14)
sneezing,runny nose,itchy eyes
Medications Reviewed: Yes
Social History
Tobacco: Non-Smoker
Alcohol: None
Drug: None
Family History
Family History: Not Pertinent
Review of Systems
Review of Systems
General: Negative Fever or Chills
All systems: All other systems were reviewed and were negative
Vital Signs
Temp Pulse Resp BP Pulse Ox
99.1 F 91 18 137/83 97
01/30/24 01:53 01/30/24 08:25 01/30/24 01:53 01/30/24 08:25 01/30/24 09:00
Physical Exam
Physical Exam
Constitutional: No Acute Distress
Cardiovascular: Regular Rate and S1/S2; Negative Murmur or Rub
Pulmonary: Clear, Symmetric and Non Labored; Negative Wheezes, Rales or Rhonchi
Gastrointestinal: Soft, Non Tender, Non Distended and Normal Bowel Sounds
Skin: Warm and Dry; Negative Rash or Jaundice
Neurological: Awake
Lab / Diagnostic Study Results
01/30/24 09:13
01/30/24 09:13
Abs Immat Gran (auto) 0.0 10^3/uL (0-0.05) 01/30/24 09:13
Absolute Neuts (auto) 2.6 10^3/uL (1.4-6.5) 01/30/24 09:13
Absolute Lymphs (auto) 0.6 10^3/uL (1.2-3.4) L 01/30/24 09:13
Absolute Monos (auto) 0.7 10^3/uL (0.1-0.6) H 01/30/24 09:13
Absolute Basos (auto) 0.0 10^3/uL (0-0.2) 01/30/24 09:13
Immature Gran % 0.2 % (0-0.5) 01/30/24 09:13
Neutrophils % 65.0 % (42.2-75.2) 01/30/24 09:13
Lymphocytes % 15.5 % (20.5-51.1) L 01/30/24 09:13
Monocytes % 16.2 % (1.7-9.3) H 01/30/24 09:13
Eosinophils % 2.9 % (0-6) 01/30/24 09:13
Basophils % 0.2 % (0-2) 01/30/24 09:13
Microbiology Results
Micro:
01/30/24 02:38 MRSA Screen - Pending
Nose
Assessment / Plan
COVID URI - mild
CKD3
Bipolar disorder
- onset of symptoms 01/28 - isolation x10 days while inpatient through 02/07
- nifedapine and abilify with cat D interactions with paxlovid
- molnupiravir 800 mg PO BID x5 days an option outpatient however efficacy is marginal and it is nonformulary, from my perspective would not recommend it
- tylenol PRN For myalgias/fevers
- stable for dc from ID perspective
[2024-01-30 16:15] VITALS: BP 142/75
[2024-01-30] MEDS: XALATAN OPHTHALMIC SOLUTION 1 DROP BOTH EYES (17:21)
[2024-01-30 17:24] LABS: Glucose - Point of Care 96 mg/dl (70-99)
--- NOTE | 2024-01-30 18:00 | PTCARENOTE ---
Patient frequently setting off chair alarm to ambulate into bathroom with joel RENDON placed in room for patient safety. SCDs off of patient d/t high fall risk, B/L knee high ROOSEVELT wraps in place per order, patient states no concerns at this time.
[2024-01-30] MEDS: LOVENOX 30 MG SC (20:15)
[2024-01-30 21:25] LABS: Glucose - Point of Care 109 mg/dl (70-99)
[2024-01-30] MEDS: FLOMAX 0.4 MG PO (21:47)
[2024-01-30] MEDS: ABILIFY 10 MG PO (21:47)
[2024-01-30] MEDS: LIPITOR 80 MG PO (21:47)
[2024-01-30 23:10] VITALS: BP 151/61
[2024-01-30] MEDS: TYLENOL 650 MG PO (23:44)
[2024-01-31 07:25] VITALS: BP 152/70
[2024-01-31 07:53] LABS: Glucose - Point of Care 103 mg/dl (70-99)
[2024-01-31] MEDS: ASPIR LOW (ENTERIC COATED) 81 MG PO (09:45)
[2024-01-31] MEDS: NEURONTIN 100 MG PO (09:45)
[2024-01-31] MEDS: MUCINEX 600 MG PO (09:45)
[2024-01-31] MEDS: PROCARDIA XL (EXTENDED RELEASE) 60 MG PO (09:46)
[2024-01-31] MEDS: SODIUM BICARBONATE 650 MG PO (09:47)
[2024-01-31] MEDS: SIMBRINZA 1%-0.2% OPHTH SUSP 1 DROP BOTH EYES (09:47)
[2024-01-31 09:50] VITALS: BP 152/70
[2024-01-31 10:43] LABS: Hematocrit 29.9 % (39.0-52.0); Hemoglobin 10.1 g/dL (13.0-18.0); Mean Corp Hgb Conc. 33.8 g/dL (33.0-37.0); Mean Corpuscular Hgb 27.7 pg (27.0-31.0); Mean Corpuscular Volume 82.1 fL (80.0-94.0); Mean Platelet Volume 9.7 fL (7.4-10.4); Platelet Count 190 10^3/uL (130-400); Red Blood Cell Count 3.64 10^6/uL (4.70-6.10); Red Cell Dist. Width 15.2 % (11.5-14.5); White Blood Cell Count 3.8 10^3/uL (4.8-10.8)
[2024-01-31 11:10] LABS: Blood Urea Nitrogen 42 mg/dl (9-20); Calcium 8.9 mg/dl (8.4-10.2); Carbon Dioxide 19 mmol/L (22-30); Chloride 108 mmol/L (98-107); Estimated Creatinine Clearance 30 ml/min; Glucose 119 mg/dl (70-99); Potassium 4.2 mmol/L (3.5-5.1); Sodium 138 mmol/L (135-145); eGFR 25.09
[2024-01-31 11:48] LABS: Glucose - Point of Care 120 mg/dl (70-99)
--- NOTE | 2024-01-31 12:24 | W.PN.HOSP.TC ---
Today's Communication/Plan
-
d/c
Assessment / Plan
Assessment / Plan
pt is a 73 year old male
cleared for d/c
Acute viral COVID positive illness with dry cough, weakness and MRSA positive respiratory screen--apprec ID consult--not on O2--not on treatments
Chest pressure --NEG TPNI --Unremarkable EKG for acute ischemia
CKD 3b/4 HX --Metabolic acidosis--DC'd HCO3 on last admission - Resume NaHCO3 1 tab daily - Trend Cr
HX MDD - HX Psycotic features on last admission - Major loss; Recently lost , so can be a component of grieve, anxiety-induced- cont home meds
RLE with venous insufficiency--NEG DVT US on last admission - cont compression wraps
BYRON
Essential HTN
Neuropathy
BPH
-cont home meds
DVT Px: SQH
Code: full code
Anticipated Discharge: Today
Subjective/Interval History
-
Date of Service: January 31, 2024
pt cleared for d/c by ID
Objective Data
-
Labs:
Laboratory Results
01/31/24
10:03
WBC 3.8 L
Hgb 10.1 L
Hct 29.9 L
Plt Count 190
Sodium 138
Potassium 4.2
Chloride 108 H
Carbon Dioxide 19 L
BUN 42 H
Creatinine 2.6 H
Glucose 119 H
Calcium 8.9
Vital Signs:
max temp for 24 hours
01/30/24
23:10
Temp 100.4 F H
Vital Signs
Temp Pulse Resp BP Pulse Ox
98.8 F 86 18 152/70 96
01/31/24 07:25 01/31/24 09:46 01/31/24 07:25 01/31/24 09:46 01/31/24 07:25
I&O
01/30/24 01/31/24 02/01/24
06:59 06:59 06:59
Intake Total 480 / 480 1919
Output Total 845 / 845
Balance 480 / 480 1075 / 1075
Review of Systems
-
All other systems: Reviewed and negative
Constitutional: Reports Weakness
Physical Exam
-
General: Well Developed, Well Nourished and No Apparent Distress
HEENT: Normocephalic and Atraumatic
Respiratory: Clear to Auscultation; Negative Wheezes or Rhonchi
Cardiac: Regular Rhythm and S1/S2; Negative Murmur
GI: Soft, Nontender, Nondistended and Normal Bowel Sounds
Musculoskeletal: No Clubbing, No Cyanosis and No Edema
Neuro: Awake and Alert
Psych: Calm
--- NOTE | 2024-01-31 14:24 | W.DCSUMMARY ---
Discharge Summary
Discharge Data
Date of Admission: 01/30/24
Date of Discharge: 01/31/24
-
Pending Results: No
Hospital Course
Primary care physician : Ines Carlos
Principal Discharge diagnosis : Acute COVID-positive illness along with MRSA positive respiratory screen
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
essential hypertension, chronic neuropathy, benign prostatic hyperplasia
Hospital Course : Patient was a 73-year-old male who was discharged from the hospital by myself 3 days prior to this current admission who presented for a dry cough and chest pain. He states that it is in his upper chest lasted approximately 10
minutes and was relieved with aspirin. He has an intermittent dry cough plus a headache and weakness. He was found to be positive for COVID and was brought in as observation.
Problem #1: Acute COVID-positive illness along with MRSA positive respiratory screen. Patient was complaining of weakness as a result. He was seen in consultation by physical therapy and Occupational Therapy who recommended home health. (This was
the same recommendation as the last admission). Patient was seen in consultation by infectious disease. Patient should remain in isolation for 10 days through February 08, 2024. Nifedipine and Abilify have category D interactions with Paxlovid so
that was not given. Molnupiravir was potentially an option however efficacy was marginal and ID did not recommend it. He has been cleared for discharge from an ID perspective. Patient is not on oxygen nor has he required any in the hospital.
Problem #2: All other medical issues. 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
iron deficiency anemia, essential hypertension, chronic neuropathy, benign prostatic hyperplasia. These medical issues were stable during his hospital stay. Medications were continued as able.
Patient is stable for discharge back to his apartment at this time. If there are any questions regarding this dictation or his hospital stay, please do not hesitate to call. Our office number is [phone].
Discharge Plan
-
Patient Disposition: Home with Home Care
Discharge Diagnosis/Procedures: Acute viral COVID-positive illness with MRSA positive screen, chronic kidney disease stage IIIb/IV with metabolic acidosis, major depressive disorder with bipolar features, venous insufficiency bilaterally, iron
deficiency anemia, essential hypertension, neuropathy, benign prostatic hyperplasia
Condition: Good
Diet: As tolerated
Activity: As tolerated
Driving Restrictions: No driving
Bathing Restrictions: None
Other Services: VN
Referrals:
Ines Carlos MD [Family Provider] - in less than 1 week
Prescriptions:
Continued
atorvastatin 80 MG tablet
80 mg PO HS
travoprost 0.004 % Drops
1 drp BOTH EYES QPM
aspirin 81 mg Tablet,Delayed Release (Dr/Ec)
81 mg PO DAILY
Simbrinza 1-0.2 % Drops,Suspension
1 drp BOTH EYES BID
gabapentin 100 mg Capsule
100 mg PO TID
nifedipine 60 mg Tablet Extended Release
60 mg PO BID
carbamazepine 200 mg Tablet Extended Release 12 Hr
400 mg PO BID
Neuriva Original 100-100 mg Capsule
1 cap PO DAILY
ferrous sulfate 325 mg (65 mg iron) Tablet
325 mg PO DAILY
loratadine 10 mg Tablet
10 mg PO DAILY
tamsulosin 0.4 mg Capsule
0.4 mg PO HS Qty: 0 0RF
acetaminophen 325 mg Tablet
650 mg PO Q4HPRN PRN (Reason: Mild Pain / Temp > 101) Qty: 0 0RF
aripiprazole 5 mg Tablet
10 mg PO HS Qty: 30 0RF
sodium bicarbonate 650 mg Tablet
650 mg PO BID Qty: 30 0RF
white petrolatum [Hydrophor] 42 % Ointment
1 applic topical DAILY Qty: 454 0RF
doxycycline hyclate 100 mg tablet
100 mg PO BID Qty: 14 0RF
Discharge Orders:
Discharge Patient (As Directed); Ordered 01/31/24
Ordered By: Michelle Jiang
Discharge Date and Time
Print Language: CHINESE
--- NOTE | 2024-01-31 15:24 | CM ---
Patient with Dx Acute viral COVID positive illness. Room air. PT & OT recommend HH.
Spoke with patient who was preparing for d/c. The patient says he feels ready to go home today. He agrees to resuming [facility] for SN/PT/OT. Patient states his brother and nephew will not provide a ride home as they are both mad at him for the
way he has been acting around them. Patient states he has used [employer] before, then admits he always has hospital provide a ride home 'out of pity' for him, and he says he doesn't have the Uber tina and doesn't know how to order an Uber for himself.
Agree to order [employer] to facilitate discharge today.
[facility] - referral accepted in [facility]- notified them patient discharging today. .
Plan home today with [facility] VN by Meliza.
[2024-01-31 15:43] VITALS: BP 149/65
== END 2024-01-31 15:39 | disposition home health service (06) ==
LOC: 2 NORTH 01:26
PROVIDERS: ADMITTING PHYSICIAN Internal Medicine; ATTENDING PHYSICIAN Internal Medicine; CONSULT PHYSICIAN Student in an Organized Health Care Education/Training Program; EMERGENCY PHYSICIAN Emergency Medicine; FAMILY PHYSICIAN Internal Medicine
DX: U07.1 COVID-19 (principal); R51.9 Headache, unspecified; I12.9 Hypertensive chronic kidney disease with stage 1 through stage 4 chronic kidney disease, or unspecified chronic kidney disease; E11.22 Type 2 diabetes mellitus with diabetic chronic kidney disease; N18.32 Chronic kidney disease, stage 3b; E11.40 Type 2 diabetes mellitus with diabetic neuropathy, unspecified; I25.2 Old myocardial infarction; E66.01 Morbid (severe) obesity due to excess calories; R06.02 Shortness of breath; I87.2 Venous insufficiency (chronic) (peripheral); M10.9 Gout, unspecified; J30.1 Allergic rhinitis due to pollen; G47.33 Obstructive sleep apnea (adult) (pediatric); E78.00 Pure hypercholesterolemia, unspecified; B95.62 Methicillin resistant Staphylococcus aureus infection as the cause of diseases classified elsewhere; F32.3 Major depressive disorder, single episode, severe with psychotic features; R09.02 Hypoxemia; E87.20 Acidosis, unspecified; N40.0 Benign prostatic hyperplasia without lower urinary tract symptoms; D50.9 Iron deficiency anemia, unspecified; R07.89 Other chest pain; H40.9 Unspecified glaucoma; I25.10 Atherosclerotic heart disease of native coronary artery without angina pectoris; Z95.5 Presence of coronary angioplasty implant and graft; Z82.3 Family history of stroke; Z96.652 Presence of left artificial knee joint; Z68.31 Body mass index [BMI] 31.0-31.9, adult; Z88.6 Allergy status to analgesic agent; Z91.018 Allergy to other foods
CPT/HCPCS: 71046; 80048; 80053; 82962; 84484; 85025; 85027; 87070; 87147; 87811; 93005; 97163; 97166; 99285; G0378

== ENCOUNTER 2024-12-06 15:28 | Inpatient (IN) | payer OTHER, SELFPAY ==
[2024-12-05] VITALS (9 sets, daily range): BP systolic 156–189; BP diastolic 61–81; PULSE 56; BMI 29.8
[2024-12-05 12:57] LABS: % Basophils 0.6 % (0-2); % Eosinophils 2.4 % (0-6); % Immature Granulocytes 0.2 % (0-0.5); % Lymphocytes 19.8 % (20.5-51.1); % Monocytes 5.4 % (1.7-9.3); % Neutrophils 71.6 % (42.2-75.2); Absolute Eosinophils 0.2 10^3/uL (0-0.7); Absolute Lymphocytes 1.3 10^3/uL (1.2-3.4); Absolute Monocytes 0.4 10^3/uL (0.1-0.6); Absolute Neutrophils 4.8 10^3/uL (1.4-6.5); Hematocrit 35.1 % (39.0-52.0); Hemoglobin 11.5 g/dL (13.0-18.0); Mean Corp Hgb Conc. 32.8 g/dL (33.0-37.0); Mean Corpuscular Volume 88.6 fL (80.0-94.0); Mean Platelet Volume 9.3 fL (7.4-10.4); Nucleated Red Blood Cells % 0 % (-); Platelet Count 243 10^3/uL (130-400); Red Blood Cell Count 3.96 10^6/uL (4.70-6.10); Red Cell Dist. Width 13.6 % (11.5-14.5); White Blood Cell Count 6.6 10^3/uL (4.8-10.8)
[2024-12-05 13:23] LABS: ALT (SGPT) 18 U/L (0-50); AST (SGOT) 24 U/L (17-59); Alkaline Phosphatase 162 U/L (38-126); Blood Urea Nitrogen 27 mg/dl (9-20); Calcium 9.9 mg/dl (8.4-10.2); Chloride 117 mmol/L (98-107); Glucose 128 mg/dl (70-99); Potassium 5.4 mmol/L (3.5-5.1); Sodium 149 mmol/L (135-145); Total Bilirubin 0.5 mg/dl (0.2-1.3); eGFR 27.45
[2024-12-05 13:25] LABS: Albumin 4.8 g/dl (3.5-5.0); Carbon Dioxide 16 mmol/L (22-30); Total Protein 7.3 g/dl (6.3-8.2)
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
[2024-12-05 17:26] LABS: Urine Albumin 3+ (Neg - Trace); Urine Bilirubin Negative (Negative); Urine Character Slightly Cloudy (Clear); Urine Color Yellow; Urine Glucose Negative (Negative); Urine Ketone Negative (Negative); Urine Leukocyte Negative (Negative); Urine Nitrite Negative (Negative); Urine Occult Blood 1+ (Negative); Urine Urobilinogen Negative (Neg - 1+)
[2024-12-05] MEDS: NSS 1000 IV (17:52)
[2024-12-05 18:08] LABS: Urine Red Blood Cell 0-2 /HPF (0-2); Urine Sperm Seen; Urine White Cell 0-2 /HPF (0-5)
[2024-12-05 18:51] LABS: Troponin I 0.012 ng/ml
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
--- NOTE | 2024-12-05 19:58 | W.PN.UPDATE ---
Update Note
Progress Note Update
Patient seen in conjunction with JW. I agree with the findings and physical. I concur with assessment and plan listed otherwise.
Briefly, this is a 74-year-old male with past medical history of CKD stage V, chronic metabolic acidosis, depression, hypertension, hyperlipidemia, BPH presenting to the emergency department with worsening weakness and confusion.
He appears to have endorsed some recent episodes of diarrhea at home but so far unable to provide any stool in the emergency department and told the ED staff that his cath has recently had ones. He describes himself as noncompliant with medications
and lives alone in an apartment but remains independent. He feels his health is declining. He denies any fevers chills headaches chest pain shortness of breath abdominal pain no falls. He reports excessive somnolence and uses a CPAP machine.
In the emergency department he was hypertensive with a blood pressure of 181/60, pulse rate was 48, temperature was 98.6 and he was satting 100% on room air.
CBC was unremarkable, ECG shows sinus bradycardia at a rate of 59 with right bundle. Troponin was negative.
Labs notable for a potassium of 5.4, bicarb of 16 with a chloride of 117, BUN/creatinine were 27 and 2.4. Glucose was 128.
UA was cloudy but was negative for acute infection.
CT of the head is nonacute.
Assessment and plan
74 y.o with BPH, CKD 4, HTN coming with complaint of loose stools recently, weakness and dehydration. Cannot rule out depression ad hallucinations. W/U in ED shows no acute infection but has hyperkalemia and metabolic acidosis. Depression w/o
SI/HI.
Confusion - Mild possibly 2/2 depression versus dehydration
- admit to med/surg obs
- check covid/flu
- stool studies
- correct metabolic changes
- check tsh/b12/rpr
- PT
- case management
Diarrhea - Saw worm in toilet bowl and felt cat had worms. Possible halluciation versus parasitosis
- stool studies and monitoring
- gentle hydration as below
Metabolic acidosis - Likely secondary to CKD 4 given hyperkalemia and non-compliance
- iv fluids with Na bicarb 150 meq overnight x 1 L.
- continue oral bicarb supplementation
Hyperkalemia
- correct acidosis
- low K diet
- lokelma 5 once
- repeat labs in am
Behavioral/Depression - possibly non compliant with meds
- restart his abilify
- consider psych consult
CPAP - HS
DVT PPX - heparin sq
Code status - Full Code
[2024-12-05] MEDS: LOKELMA 10 GRAM PO (22:14)
[2024-12-05] MEDS: FLOMAX 0.4 MG PO (23:03)
[2024-12-05] MEDS: SODIUM BICARBONATE 1150 MEQ IV (23:03)
[2024-12-05] MEDS: ABILIFY 10 MG PO (23:04)
[2024-12-05] MEDS: HEPARIN 5000 UNITS SC (23:33)
[2024-12-06 00:31] VITALS: PULSE 71
--- NOTE | 2024-12-06 02:37 | TRANSFER ---
Pt admitted to 3w from ED for failure to thrive. Pt brought up in stretcher and was able to ambulate to bed unassisted using single point cane. Bp 185/79 P 81 O2 97 on RA T 97.7 R 18. Pt oriented to unit, call bar[place]ona with in reach, plan of care
ongoing.
[2024-12-06 06:00] VITALS: BMI 29.6
[2024-12-06 06:30] LABS: Venous Blood Gas B.E. -3.5 mmol/L (-4 to +4); Venous Blood Gas HCO3 22.1 mmol/L (22-27); Venous Blood Gas O2 Sat % 98.9 %; Venous Blood Gas pCO2 41 mmHg (35-48); Venous Blood Gas pH 7.34 (7.32-7.43); Venous Blood Gas pO2 93 mmHg (30-50)
[2024-12-06 06:57] LABS: Hematocrit 31.8 % (39.0-52.0); Hemoglobin 10.5 g/dL (13.0-18.0); Mean Corpuscular Hgb 28.5 pg (27.0-31.0); Mean Corpuscular Volume 86.2 fL (80.0-94.0); Mean Platelet Volume 9.3 fL (7.4-10.4); Platelet Count 192 10^3/uL (130-400); Red Blood Cell Count 3.69 10^6/uL (4.70-6.10); Red Cell Dist. Width 13.7 % (11.5-14.5); White Blood Cell Count 5.5 10^3/uL (4.8-10.8)
[2024-12-06 07:21] LABS: COVID-19 Antigen Negative (Negative)
[2024-12-06 07:48] VITALS: BP 161/69
[2024-12-06 08:01] LABS: Blood Urea Nitrogen 27 mg/dl (9-20); Calcium 8.8 mg/dl (8.4-10.2); Carbon Dioxide 21 mmol/L (22-30); Chloride 116 mmol/L (98-107); Estimated Creatinine Clearance 30 ml/min; Glucose 95 mg/dl (70-99); Potassium 3.8 mmol/L (3.5-5.1); Sodium 145 mmol/L (135-145); eGFR 30.47
[2024-12-06] MEDS: HEPARIN 5000 UNITS SC ×3 (08:46→23:30)
[2024-12-06] MEDS: TEGRETOL XR (EXTENDED RELEASE) 400 MG PO (08:46)
[2024-12-06] MEDS: SODIUM BICARBONATE 1150 MEQ IV (11:36)
[2024-12-06 13:54] VITALS: BMI 29.6
--- NOTE | 2024-12-06 15:18 | W.PN.HOSP.TC ---
Today's Communication/Plan
-
Psych consult
Assessment / Plan
Assessment / Plan
74 y.o with BPH, CKD 4, HTN coming with complaint of loose stools recently, weakness and dehydration. Cannot rule out depression ad hallucinations. W/U in ED shows no acute infection but has hyperkalemia and metabolic acidosis. Depression w/o
SI/HI.
Confusion - Mild possibly 2/2 depression versus dehydration
- admit to med/surg obs
- Neg covid
- stool studies pending
- correct metabolic changes
- check tsh/b12/rpr
- PT
- case management
Diarrhea - Saw worm in toilet bowl and felt cat had worms. Possible halluciation versus parasitosis
- stool studies and monitoring
- gentle hydration as below
Metabolic acidosis - Likely secondary to CKD 4 given hyperkalemia and non-compliance
- better CO2 16-->21
Hyperkalemia
- correct acidosis
- low K diet
- lokelma 5 once
-better
5.4-->3.8
Behavioral/Depression - possibly non compliant with meds
- restart his abilify
- psych consult
CPAP - HS
In pt with metabolic acidosis, significant CKD, hyperkalemia and altered mental status, will change to full admit
DVT PPX - heparin sq
Code status - Full Code
Anticipated Discharge: > 48 hours
Subjective/Interval History
-
Date of Service: December 06, 2024
States he remains weak
Objective Data
-
Labs:
Laboratory Results
25 12/06/24
06:18 06:19
WBC 5.5
Hgb 10.5 L
Hct 31.8 L
Plt Count 192 D
Sodium 145
Potassium 3.8 D
Chloride 116 H
Carbon Dioxide 21 L
BUN 27 H
Creatinine 2.2 H
Glucose 95
Calcium 8.8
Vital Signs:
Vital Signs
Temp Pulse Resp BP Pulse Ox
97.8 F 56 16 161/69 98
12/06/24 07:48 12/06/24 07:48 12/06/24 07:48 12/06/24 07:48 12/06/24 07:48
Review of Systems
-
History Source: Patient and Coordinated Provider
Constitutional: Denies Fever
Respiratory: Reports No Symptoms
Cardiac: Reports No Symptoms
Abdomen/GI: Reports No Symptoms
Neuro: Reports Weakness
Physical Exam
-
General: Well Developed, Well Nourished, No Apparent Distress and Obese
HEENT: Normocephalic, Atraumatic and Moist Mucous Membranes
Respiratory: Clear to Auscultation; Negative Wheezes, Rales or Rhonchi
Cardiac: Regular Rhythm and S1/S2
GI: Soft, Nontender and Nondistended
Musculoskeletal: No Clubbing, No Cyanosis and Other (chronic stasis dermatitis)
[2024-12-06 15:27] VITALS: BP 152/68
[2024-12-06] MEDS: ABILIFY 10 MG PO (21:03)
[2024-12-06] MEDS: FLOMAX 0.4 MG PO (21:03)
[2024-12-06 21:57] VITALS: PULSE 66
[2024-12-06 23:00] VITALS: BP 141/64
[2024-12-07 06:15] LABS: Blood Urea Nitrogen 27 mg/dl (9-20); Calcium 8.6 mg/dl (8.4-10.2); Carbon Dioxide 26 mmol/L (22-30); Chloride 113 mmol/L (98-107); Estimated Creatinine Clearance 30 ml/min; Glucose 108 mg/dl (70-99); Potassium 3.7 mmol/L (3.5-5.1); Sodium 146 mmol/L (135-145); eGFR 30.47
[2024-12-07] MEDS: HEPARIN 5000 UNITS SC ×2 (07:59→18:04)
[2024-12-07] MEDS: TEGRETOL XR (EXTENDED RELEASE) 400 MG PO (08:00)
[2024-12-07 08:14] VITALS: BP 165/73
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
[2024-12-07] MEDS: SODIUM BICARBONATE 1150 MEQ IV (11:22)
[2024-12-07 12:28] VITALS: BP 170/72; PULSE 65; O2SAT 100
[2024-12-07 12:29] VITALS: BP 170/72; PULSE 64; O2SAT 100
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
--- NOTE | 2024-12-07 15:15 | W.PN.HOSP.TC ---
Today's Communication/Plan
-
dramatic improvement since admission, though unclear as to whether he will be able to live on his own. Discussed with CM
Assessment / Plan
Assessment / Plan
74 y.o with BPH, CKD 4, HTN coming with complaint of loose stools recently, weakness and dehydration. Cannot rule out depression and hallucinations. W/U in ED shows no acute infection but has hyperkalemia and metabolic acidosis. Depression w/o
SI/HI.
Confusion - Mild possibly 2/2 depression versus dehydration
- admit to med/surg obs
- Neg covid
- stool studies pending
- correct metabolic changes
- check tsh/b12/rpr
- PT
- case management
Diarrhea - Saw worm in toilet bowl and felt cat had worms. Possible halluciation versus parasitosis
- stool studies and monitoring
- gentle hydration as below
Metabolic acidosis - Likely secondary to CKD 4 given hyperkalemia and non-compliance
- better CO2 16-->21-->26
resolved
will dc IVF with NaHCO3
Hyperkalemia
- resolved
5.4-->3.8-->3.7
Behavioral/Depression - possibly non compliant with meds
- restart his abilify
- psych consult
CPAP - HS
In pt with metabolic acidosis, significant CKD, hyperkalemia and altered mental status, will change to full admit
DVT PPX - heparin sq
Code status - Full Code
Anticipated Discharge: > 48 hours
Subjective/Interval History
-
Date of Service: December 07, 2024
Generally feeling less ill
Objective Data
-
Labs:
Laboratory Results
12/07/24
05:31
Sodium 146 H
Potassium 3.7
Chloride 113 H
Carbon Dioxide 26
BUN 27 H
Creatinine 2.2 H
Glucose 108 H
Calcium 8.6
Vital Signs:
Vital Signs
Temp Pulse Resp BP Pulse Ox
98.0 F 54 16 165/73 98
12/07/24 08:14 12/07/24 08:14 12/07/24 08:14 12/07/24 08:14 12/07/24 08:14
I&O
12/06/24 12/07/24 12/08/24
06:59 06:59 06:59
Intake Total 960 / 960
Balance 960 / 960
Review of Systems
-
History Source: Patient and Coordinated Provider
Constitutional: Denies Fever
EENT: Reports No Symptoms Reported
Respiratory: Reports No Symptoms
Cardiac: Reports No Symptoms
Abdomen/GI: Reports No Symptoms
Genitourinary: Reports No Symptoms
Neuro: Reports Weakness
Physical Exam
-
General: Well Developed, Well Nourished, No Apparent Distress and Appears Chronically Ill
HEENT: Normocephalic, Atraumatic and Moist Mucous Membranes
Respiratory: Clear to Auscultation; Negative Wheezes, Rales or Rhonchi
Cardiac: Regular Rhythm and S1/S2
GI: Soft, Nontender and Nondistended
Musculoskeletal: No Clubbing, No Cyanosis and No Edema
Skin: Warm and Dry
Neuro: Awake and Alert
[2024-12-07 16:00] VITALS: BP 184/77
[2024-12-07] MEDS: FLOMAX 0.4 MG PO (21:17)
[2024-12-07] MEDS: ABILIFY 10 MG PO (21:17)
[2024-12-07 22:15] VITALS: PULSE 70
[2024-12-07 23:32] VITALS: BP 178/82
[2024-12-08] MEDS: HEPARIN 5000 UNITS SC ×4 (00:58→23:14)
[2024-12-08 03:25] VITALS: PULSE 77
[2024-12-08 06:26] LABS: Blood Urea Nitrogen 27 mg/dl (9-20); Carbon Dioxide 28 mmol/L (22-30); Chloride 113 mmol/L (98-107); Estimated Creatinine Clearance 29 ml/min; Glucose 112 mg/dl (70-99); Potassium 3.9 mmol/L (3.5-5.1); Sodium 147 mmol/L (135-145); eGFR 28.89
[2024-12-08 06:43] LABS: Vitamin D, 25-OH*** 35.7 ng/mL (30-80)
[2024-12-08 06:57] LABS: TSH Reflex To Free T4 1.48 uIU/ml (0.47-4.68)
[2024-12-08 07:10] LABS: Tegretol (Carbamazepine) 3.3 ug/ml (4-12)
[2024-12-08] MEDS: TEGRETOL XR (EXTENDED RELEASE) 400 MG PO (07:27)
[2024-12-08 07:30] VITALS: BP 177/79
[2024-12-08 07:33] LABS: Folate 6.8 ng/ml (2.76-20); Vitamin B12 340 pg/ml (239-931)
--- NOTE | 2024-12-08 09:43 | PN.CDI ---
CDI
- -
CDI:
Physician Documentation Request
Admit Date: 12/06/24 15:28
Dear Doctor Aixa,
Please review the following and provide your response in the progress notes.
Clinical Indicators:
- 12/05 ER Physician 'presenting with increased confusion and weakness'
- 'reports that he has had a few episodes of loose stools and thinks he may have noticed worms in the toilet bowl'
- 12/07 PN 'Confusion - Mild possibly 2/2 depression versus dehydration'
- 'correct metabolic changes'
- 4450ml IVF given
Laboratory Tests
12/05/24 12/08/24
12:47 05:51
Sodium 149 H 147 H
Potassium 5.4 H
BUN 27 H 27 H
Please clarify in the Progress Notes and Discharge Summary which, if any of the following, is the most likely etiology of the confusion/altered mental status.
Encephalopathy - indicate type, such as metabolic, toxic, septic, alcoholic, anoxic, hypertensive etc. due to a specific condition such as UTI, CVA, hyponatremia etc.
Acute Delirium - indicate known or suspected etiology such as postoperative, due to opioids or other drugs etc. Can also indicate unknown or mixed etiologies.
Acute or subacute confusional state due to ____ (specify known or suspected etiology)
Other (please specify)
Use of terms such as suspected, likely, concern for, or probable (associated with a specific diagnosis that is being evaluated, monitored, or treated as if it exists) are acceptable and can be coded in the inpatient setting, when documented at the
time of discharge.
Thank you,
Cliff Tomlin RN
CDI Specialist
Please use your independent medical judgment in providing your response.
--- NOTE | 2024-12-08 10:59 | W.PN.UPDATE ---
Update Note
Progress Note Update
patient seen chart reviewed. spoke with nursing. noted b12 folate vit d and tsh are wnl. patient lying in bed with cpap mask on. says he feels better if he falls asleep if he is wearing the mask which is a good thing . he said he has come to the
decision that he needs to give his cat away as he is too weak to take care of it....he has already admitted to himself that he needs help in the home. i did tell him that cm is looking into his needs when / if he returns home (i wonder if he needs
nursing home or even placement in assited living.) that said his bipolar disorder at this point seems relatively stable although his tegretol level is still quite low and as mentioned in prior notes tegretol does interfere w metabolism of abilify
given that his mood seems stable i would tend to leave them as is but i did present these issues to him and wondered if he felt meds should be tweaked reflect a therapeutic blood level of tegretol and consideration might be given to switching
antipsychotic. he does not wish me to change them. says he feels his psych meds are helping, he has no ill effects and wishes to continue w them as they are. psych will sign off. please call if reassessment indicated. at this point a decision
needs to be made as to how capable patient is to take care of himself (PT OT) and whether he can go home or needs further assist. he is competent to make his own decision but it is my impression he would be thoughtful if presented w options.
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
--- NOTE | 2024-12-08 14:58 | W.PN.HOSP.TC ---
Today's Communication/Plan
-
dc to home, will need [facility] post dc, to be set up by CM
Assessment / Plan
Assessment / Plan
74 y.o with BPH, CKD 4, HTN coming with complaint of loose stools recently, weakness and dehydration. Cannot rule out depression and hallucinations. W/U in ED shows no acute infection but has hyperkalemia and metabolic acidosis. Depression w/o
SI/HI.
Confusion - Mild possibly 2/2 depression versus dehydration
- admit to med/surg obs
- Neg covid
- stool studies pending
- correct metabolic changes
- tsh 1.48/b12 340
- PT recommends skilled rehab, pt refuses, will get PT with VN
- case management
Diarrhea - Saw worm in toilet bowl and felt cat had worms. Possible halluciation versus parasitosis
- stool studies negative
Metabolic acidosis - Likely secondary to CKD 4 given hyperkalemia and non-compliance
- resolved CO2 16-->21-->26
will dc IVF with NaHCO3
Hyperkalemia
- resolved
5.4-->3.8-->3.7
Behavioral/Depression - possibly non compliant with meds
- restart his abilify
- psych consult
CPAP - HS
In pt with metabolic acidosis, significant CKD, hyperkalemia and altered mental status, will change to full admit
Approaching baseline, potential dc tomorrow, he does not want to go to a SNF, will need VN. Reviewed with CM
DVT PPX - heparin sq
Code status - Full Code
Anticipated Discharge: Within 24 hours
Subjective/Interval History
-
Date of Service: December 08, 2024
CM contacted office on aging. Pt refuses [facility] placement
Objective Data
-
Labs:
Laboratory Results
12/08/24
05:51
Sodium 147 H
Potassium 3.9
Chloride 113 H
Carbon Dioxide 28
BUN 27 H
Creatinine 2.3 H
Glucose 112 H
Calcium 9.0
Vital Signs:
Vital Signs
Temp Pulse Resp BP Pulse Ox
98.0 F 58 20 177/79 100
12/08/24 07:30 12/08/24 07:30 12/08/24 07:30 12/08/24 07:30 12/08/24 07:30
I&O
12/07/24 12/08/24 12/09/24
06:59 06:59 06:59
Intake Total 960 / 960 1200 / 1200
Balance 960 / 960 1200 / 1200
Review of Systems
-
History Source: Patient and Coordinated Provider
Constitutional: Denies Fever
EENT: Reports No Symptoms Reported
Respiratory: Reports No Symptoms
Cardiac: Reports No Symptoms
Abdomen/GI: Reports No Symptoms
Genitourinary: Reports No Symptoms
Neuro: Reports Weakness
Physical Exam
-
General: Well Developed, Well Nourished, No Apparent Distress and Appears Chronically Ill
HEENT: Normocephalic, Atraumatic and Moist Mucous Membranes
Respiratory: Clear to Auscultation; Negative Wheezes, Rales or Rhonchi
Cardiac: Regular Rhythm and S1/S2
GI: Soft, Nontender and Nondistended
Musculoskeletal: No Clubbing, No Cyanosis and No Edema
Skin: Warm and Dry
Neuro: Awake and Alert
[2024-12-08 15:45] VITALS: BP 169/68
[2024-12-08] MEDS: FLOMAX 0.4 MG PO (21:31)
[2024-12-08] MEDS: ABILIFY 10 MG PO (21:31)
[2024-12-08 22:21] VITALS: PULSE 80
[2024-12-08 23:34] VITALS: BP 170/80
[2024-12-09 03:46] VITALS: PULSE 80
[2024-12-09 06:17] VITALS: BMI 29.5
[2024-12-09 07:10] VITALS: BP 160/71
[2024-12-09] MEDS: TEGRETOL XR (EXTENDED RELEASE) 400 MG PO (07:42)
[2024-12-09] MEDS: HEPARIN 5000 UNITS SC (07:43)
[2024-12-09] MEDS: PROCARDIA XL (EXTENDED RELEASE) 30 MG PO (09:03)
--- NOTE | 2024-12-09 09:40 | W.PN.HOSP.TC ---
Today's Communication/Plan
-
dc to home
Assessment / Plan
Assessment / Plan
74 y.o with BPH, CKD 4, HTN coming with complaint of loose stools recently, weakness and dehydration. Cannot rule out depression and hallucinations. W/U in ED shows no acute infection but has hyperkalemia and metabolic acidosis, now resolved
Depression w/o SI/HI.
Dehydration, heat impairment resulted in Metabolic Encephalopathy. Now resolved
Confusion - Mild possibly 2/2 depression versus dehydration
- admit to med/surg obs
- Neg covid
- stool studies neg
- corrected metabolic changes
- tsh 1.48/b12 340
- PT recommends skilled rehab, pt refuses, will get PT with VN
- case management. Reviewed with Nena, from [facility]
Diarrhea - Thought he saw worm in toilet bowl and felt cat had worms. Possible hallucination versus parasitosis
- stool studies negative
Metabolic acidosis - Likely secondary to CKD 4 given hyperkalemia and non-compliance
- resolved CO2 16-->21-->26
will dc IVF with NaHCO3
Hypertension
will resume Nifedipine, but only one per day for now
Hyperkalemia
- resolved
5.4-->3.8-->3.7
CKD probably at baseline
in 2014 Creat was 1.8
Behavioral/Depression - pt admits to being non compliant with meds, states he will do his best to take medication appropriately
- restart his abilify
- psych consult
CPAP - HS
In pt with metabolic acidosis, significant CKD, hyperkalemia and altered mental status, will change to full admit.
Most likely he is back to baseline, he does not want to go to a SNF, will need VN. Reviewed with CM
DVT PPX - heparin sq
Code status - Full Code
dc now
see dictated note
More than 30 minutes spent in discharge including
Final examination of the patient
Summarizing hospital stay
Instructions for continuing care to all relevant caregivers
Preparation of discharge records, prescriptions, and referral forms
Total time spent (in minutes): 45
Anticipated Discharge: Today
Subjective/Interval History
-
Date of Service: December 09, 2024
much more alert, conversant
Objective Data
-
Vital Signs:
Vital Signs
Temp Pulse Resp BP Pulse Ox
98.2 F 55 16 160/71 97
12/09/24 07:10 12/09/24 07:10 12/09/24 07:10 12/09/24 07:10 12/09/24 07:10
I&O
12/08/24 12/09/24 12/10/24
06:59 06:59 06:59
Intake Total 1200 / 1200 840 / 840
Balance 1200 / 1200 840 / 840
Review of Systems
-
History Source: Patient and Coordinated Provider
Constitutional: Denies Fever
EENT: Reports No Symptoms Reported
Respiratory: Reports No Symptoms
Cardiac: Reports No Symptoms
Abdomen/GI: Reports No Symptoms
Genitourinary: Reports No Symptoms
Musculoskeletal: Reports No Symptoms
Neuro: Reports No Symptoms; Denies Weakness (he believes he is back to his baseline status, has been walking in the halls)
Physical Exam
-
General: Well Developed, Well Nourished, No Apparent Distress and Appears Chronically Ill (but generally looks better)
HEENT: Normocephalic, Atraumatic and Moist Mucous Membranes
Respiratory: Clear to Auscultation; Negative Wheezes, Rales or Rhonchi
Cardiac: Regular Rhythm and S1/S2
GI: Soft, Nontender and Nondistended
Musculoskeletal: No Clubbing, No Cyanosis and No Edema
Skin: Warm and Dry
Neuro: Awake and Alert
[2024-12-09 10:55] VITALS: BP 136/62; PULSE 71; O2SAT 98
[2024-12-09 11:00] VITALS: BP 154/69
--- NOTE | 2024-12-09 12:01 | W.DS.TRANS ---
DC Summary - [facility]
-
Discharge Instructions:
Discharge Diagnosis/Procedures Metabolic Encephalopathy
Diet Low Sodium
Activity As tolerated
Driving Restrictions As prior to admission
Bathing Restrictions None
Blood Work CBC, CMP in 1-2 weeks
Other Services VN,PT
Instructions:
Stand-Alone Forms:
Changes to Home Medications: Yes
Discharge Medications:
DC Medications w/original date entered in [employer]
atorvastatin 80 mg tablet 80 mg PO HS High cholesterol 02/09/15
aspirin 81 mg tablet,delayed release 81 mg PO DAILY Blood Clot Prevention/Tx 08/02/23
brinzolamide 1 %-brimonidine 0.2 % eye drops,suspension (Simbrinza) 1 drp BOTH EYES BID Eye Condition 08/02/23
travoprost 0.004 % eye drops 1 drp BOTH EYES QPM Eye Condition 08/02/23
gabapentin 100 mg capsule 100 mg PO TID Pain 09/29/23
carbamazepine 200 mg tablet,extended release,12 hr 400 mg PO DAILY Neurological Condition 01/25/24
coffee extract 100 mg-phosphatidyl serine 100 mg capsule (Neuriva Original) 1 cap PO DAILY Supplement 01/25/24
ferrous sulfate 325 mg (65 mg iron) tablet 325 mg PO DAILY Supplement 01/25/24
loratadine 10 mg tablet 10 mg PO DAILY Allergies 01/25/24
acetaminophen 325 mg tablet 650 mg (2 x 325 mg) PO Q4HPRN PRN Mild Pain / Temp > 101 #0 tabs 01/26/24
aripiprazole 5 mg tablet 10 mg (2 x 5 mg) PO HS #30 tabs 01/26/24
tamsulosin 0.4 mg capsule 0.4 mg PO HS #0 caps 01/26/24
sodium bicarbonate 650 mg tablet 650 mg PO BID ALKALINIZER 12/06/24
white petrolatum 42 % topical ointment (Hydrophor) 1 applic topical DAILY Skin Issues 12/06/24
nifedipine 60 mg tablet,extended release 60 mg PO DAILY Blood Pressure #0 tabs 12/09/24
Home Medication Changes
decrease Nifedipine to 60mg once daily
Pending Results: No
== END 2024-12-09 11:42 | disposition home health service (06) | DRG 640 ==
LOC: 3 WEST ACU 15:28
PROVIDERS: Nurse Practitioner Family; Physician Assistant; Student in an Organized Health Care Education/Training Program; ADMITTING PHYSICIAN Internal Medicine; ATTENDING PHYSICIAN Internal Medicine; EMERGENCY PHYSICIAN Emergency Medicine; FAMILY PHYSICIAN Internal Medicine; OTHER PHYSICIAN Psychiatry & Neurology Psychiatry
DX: E86.0 Dehydration (principal); G93.41 Metabolic encephalopathy; N18.4 Chronic kidney disease, stage 4 (severe); I12.9 Hypertensive chronic kidney disease with stage 1 through stage 4 chronic kidney disease, or unspecified chronic kidney disease; E11.22 Type 2 diabetes mellitus with diabetic chronic kidney disease; N40.0 Benign prostatic hyperplasia without lower urinary tract symptoms; E66.01 Morbid (severe) obesity due to excess calories; Z68.29 Body mass index [BMI] 29.0-29.9, adult; F31.9 Bipolar disorder, unspecified; I25.10 Atherosclerotic heart disease of native coronary artery without angina pectoris; X30.XXXA Exposure to excessive natural heat, initial encounter; T67.5XXA Heat exhaustion, unspecified, initial encounter; E78.00 Pure hypercholesterolemia, unspecified; I87.2 Venous insufficiency (chronic) (peripheral); Z96.652 Presence of left artificial knee joint; I45.10 Unspecified right bundle-branch block; E11.51 Type 2 diabetes mellitus with diabetic peripheral angiopathy without gangrene; D63.1 Anemia in chronic kidney disease; E11.42 Type 2 diabetes mellitus with diabetic polyneuropathy; E87.20 Acidosis, unspecified; E87.5 Hyperkalemia; G47.30 Sleep apnea, unspecified; Z11.52 Encounter for screening for COVID-19
CPT/HCPCS: 70450; 80048; 80053; 80156; 81003; 81015; 82306; 82607; 82746; 82805; 84443; 84484; 85025; 85027; 87045; 87046; 87070; 87077; 87147; 87328; 87329; 87427; 87811; 93005; 94660; 96360; 97116; 97163; 97167; 97530; 99285

== ENCOUNTER 2024-12-20 14:07 | Emergency (ER) | payer OTHER, SELFPAY ==
[2024-12-20] VITALS (7 sets, daily range): BP systolic 164–191; BP diastolic 71–111; BMI 31.6
[2024-12-20 18:04] LABS: Urine Character Clear (Clear)
[2024-12-20 18:11] LABS: Urine Red Blood Cell 0-2 /HPF (0-2); Urine White Cell 0-2 /HPF (0-5)
--- NOTE | 2024-12-20 19:01 | ED.GENMED ---
History of Present Illness
General
Chief Complaint: Dehydration Symptoms
Source: patient
Exam Limitations: none
Time Seen by Provider: 12/20/24 18:47
Nursing documentation reviewed up to this point in time: agreed with
History of Present Illness
History of Present Illness:
Pt is a 74 yr old male with past medical history of hypertension hyperlipidemia sleep apnea chronic kidney disease stage III bipolar disorder CAD with stents presents to the ED with dizziness and weakness. He reports he was outside for a while
looking for his neighbor when he got into his house after being out in the heat felt weak and dizzy.
He had no chest pain and has no complaints now .
Review of records patient was recently admitted December 05 to December 09 for acute dehydration acute metabolic encephalopathy.
Past History
Past History
ED Past Medical History: CAD, HTN, Hypercholesterolemia, NIDDM, Renal failure, Psychiatric (Bipolar I) and Other (Sleep apnea. Kidney disease, cellulitis, Glaucoma, )
ED Past Surgical History: Cardiac (stents, Angioplasty) and Orthopedic (LTKR 2016, Left shoulder surgery)
Social History
Tobacco: Non-smoker
Alcohol: None
Drug: None
Personal:
Living: alone
Employment: Retired
Family History
Family History: Other (Father with a stroke mother with a stroke)
Review of Systems
Review of Systems
Allergies reviewed?: Yes
All Other Systems: ROS reviewed and negative except as documented in HPI and ROS
Phy Exam
General Physical Exam
General Presentation: no apparent distress
General age: appears stated age
General Skin: warm and dry
General Habitus: elderly
General Mental: alert
General Hydration: dry mucous membranes
Cardiovascular Exam
Cardiovascular Exam: regular rate/rhythm, no murmur and normal peripheral pulses
Pulmonary Exam
Pulmonary Exam: lungs clear and no respiratory distress
Neurological Exam
Neurological Exam: alert
Musculoskeletal Exam
Musculoskeletal Exam: full ROM
Skin Exam
Skin Exam: normal color and warm/dry
Psychiatric Exam
Psychiatric Exam: normal mood/affect
Course
Orders/Labs/Results
Orders:
Orders
12/20/24 14:12
ECG [Electrocardiogram (*1)] Urgent
Reason for Study: Fatigue / Weakness
EKG- Treatment ONCE
12/20/24 17:55
Urinalysis Reflex To Culture Urgent
Date Specimen was Collected: 12/20/24
Time Specimen was Collected: 16:40
Urine Microscopic Reflex Cult Urgent
12/20/24 19:41
CMP [Comprehensive Metabolic Panel] Urgent
Complete Blood Count/With Diff Urgent
Abnormal Lab Results
12/20/24 12/20/24
17:55 19:41
RBC 3.84 L 10^6/uL
(4.70-6.10)
Hgb 11.1 L g/dL
(13.0-18.0)
Hct 33.0 L %
(39.0-52.0)
Absolute Neuts (auto) 7.1 H 10^3/uL
(1.4-6.5)
Neutrophils % 78.5 H %
(42.2-75.2)
Lymphocytes % 13.6 L %
(20.5-51.1)
Chloride 111 H mmol/L
(98-107)
BUN 32 H mg/dl
(9-20)
Creatinine 2.4 H mg/dL
(0.7-1.3)
Glucose 104 H mg/dl
(70-99)
Alkaline Phosphatase 135 H U/L
(38-126)
Urine Bacteria (Reflex) Few A
(Negative)
Urine Glucose 1+ A
(Negative)
Urine Albumin (Reflex) 3+ A
(Neg - Trace)
12/20/24 19:41
12/20/24 19:41
Vital Signs
Initial and Last Documented VS:
Initial Vital Signs
Temp Pulse Resp BP Pulse Ox
98.9 F 66 20 191/97 100
12/20/24 14:09 12/20/24 14:09 12/20/24 14:09 12/20/24 14:09 12/20/24 14:09
Last Documented Vital Signs
Temp Pulse Resp BP Pulse Ox
98.9 F 74 29 164/111 99
12/20/24 14:09 12/20/24 22:17 12/20/24 22:17 12/20/24 22:15 12/20/24 22:17
MDM/Problems Addressed
Differential Diagnosis Includes:
Not limited to possible heat related illness, dehydration, electrolyte abnormality, infection, anemia
MDM/Problems Addressed:
As documented patient is a 74-year-old male that presented to the ER feeling weak and dizzy. Patient was walking outside looking for his neighbor when he went back in his house felt dizzy. Patient presents awake alert no acute distress. His
temperature was normal upon arrival. he has a poor historian however is well-appearing. He does have a history of renal insufficiency and his BUN and creatinine are baseline.
He denies any recent fever chills he is afebrile his white count is normal his hemoglobin is stable and urinalysis is negative for UTI. He has been drinking and eating and appears in no distress no complaints. Patient has been ambulating back and
forth to the bathroom. As reviewed with ED physician stable for discharge home
*Pulse Oximetry
SaO2: 99
Oxygen Mode of Delivery: Room air
Patient hypoxic: no
*EKG
Interpreted by ED Provider?: Yes
Interpretation: abnormal
Heart Rate: 66
Rate: normal
Rhythm: sinus
Ischemia: non-specific ST changes
*Critical Care Note
Total Time (30-74mins, 75-104mins- exclusive of procedures): Not Applicable
ED Attending Note
-
Portions of this chart may have been created with voice recognition software.� Occasional wrong word or��sound alike� substitutions may have occurred due to the inherent limitations of voice recognition software.
Discharge Plan
Departure
Patient Disposition: Home (Routine Discharge)
Date of Disposition: 12/20/24
Time of Disposition: 22:02
Patient with high blood pressure during this ER visit?: Yes
Condition: Fair
Covid-19: Not Applicable
Discharge Problem:
heat related illness
Instructions: BLOOD PRESSURE
Prescriptions:
No Action
atorvastatin 80 MG tablet
80 mg PO HS
travoprost 0.004 % Drops
1 drp BOTH EYES QPM
aspirin 81 mg Tablet,Delayed Release (Dr/Ec)
81 mg PO DAILY
Simbrinza 1-0.2 % Drops,Suspension
1 drp BOTH EYES BID
gabapentin 100 mg Capsule
100 mg PO TID
carbamazepine 200 mg Tablet Extended Release 12 Hr
400 mg PO DAILY
Neuriva Original 100-100 mg Capsule
1 cap PO DAILY
ferrous sulfate 325 mg (65 mg iron) Tablet
325 mg PO DAILY
loratadine 10 mg Tablet
10 mg PO DAILY
tamsulosin 0.4 mg Capsule
0.4 mg PO HS Qty: 0 0RF
acetaminophen 325 mg Tablet
650 mg PO Q4HPRN PRN (Reason: Mild Pain / Temp > 101) Qty: 0 0RF
aripiprazole 5 mg Tablet
10 mg PO HS Qty: 30 0RF
sodium bicarbonate 650 mg tablet
650 mg PO BID
white petrolatum [Hydrophor] 42 % ointment
1 applic topical DAILY
nifedipine 60 mg Tablet Extended Release
60 mg PO DAILY Qty: 0 0RF
Referrals:
Ines Carlos MD [Family Provider, Internal Medicine]
Activity Restrictions/Additional Instructions:
Continue to drink fluids. Follow-up with your family doctor for reevaluation in the next several days.
Your kidney function is elevated however at baseline and your urinalysis is negative for infection.
Return if any worsening of symptoms
Interventions
Interventions:
*Risk Screen - Suicide Last Done: 12/20/24 14:09
*General Assessment Last Done: 12/20/24 19:38
*Neglect/Abuse Screening Last Done: 12/20/24 14:09
*ED- Fall Risk Assessment Last Done: 12/20/24 19:38
*ED COVID-19 Vaccine History Last Done: 12/20/24 19:38
*Nursing Disposition Last Done: 12/20/24 22:39
ED- Cardiac Assessment Last Done: 12/20/24 19:43
ED- Neurological Assessment Last Done: 12/20/24 19:39
ED- Pulmonary Assessment Last Done: 12/20/24 19:43
Discharge Date and Time
Discharge Date/Time: 12/20/24 22:44
Print Language: SAO TOMEAN
[2024-12-20 19:55] LABS: Hematocrit 33.0 % (39.0-52.0); Hemoglobin 11.1 g/dL (13.0-18.0); Mean Corp Hgb Conc. 33.6 g/dL (33.0-37.0); Mean Corpuscular Volume 85.9 fL (80.0-94.0); Nucleated Red Blood Cells % 0 % (-); Platelet Count 216 10^3/uL (130-400); Red Cell Dist. Width 13.9 % (11.5-14.5)
[2024-12-20 20:18] LABS: ALT (SGPT) 16 U/L (0-50); AST (SGOT) 18 U/L (17-59); Albumin 4.8 g/dl (3.5-5.0); Alkaline Phosphatase 135 U/L (38-126); Blood Urea Nitrogen 32 mg/dl (9-20); Calcium 10.0 mg/dl (8.4-10.2); Carbon Dioxide 22 mmol/L (22-30); Chloride 111 mmol/L (98-107); Estimated Creatinine Clearance 31 ml/min; Glucose 104 mg/dl (70-99); Potassium 4.7 mmol/L (3.5-5.1); Sodium 142 mmol/L (135-145); Total Protein 7.4 g/dl (6.3-8.2); eGFR 27.45
== END 2024-12-20 22:44 | disposition home or self-care (01) ==
LOC: EMR 14:07
PROVIDERS: Emergency Medicine; Student in an Organized Health Care Education/Training Program; EMERGENCY PHYSICIAN Emergency Medicine; FAMILY PHYSICIAN Internal Medicine
DX: T67.9XXA Effect of heat and light, unspecified, initial encounter (principal); X30.XXXA Exposure to excessive natural heat, initial encounter; R42 Dizziness and giddiness; I25.10 Atherosclerotic heart disease of native coronary artery without angina pectoris; E78.00 Pure hypercholesterolemia, unspecified; E11.22 Type 2 diabetes mellitus with diabetic chronic kidney disease; I12.9 Hypertensive chronic kidney disease with stage 1 through stage 4 chronic kidney disease, or unspecified chronic kidney disease; N18.30 Chronic kidney disease, stage 3 unspecified; Z95.5 Presence of coronary angioplasty implant and graft
CPT/HCPCS: 99284; 80053; 81003; 81015; 85025; 93005